=== PATIENT | female | born 1970 | race Two or more races ===

== ENCOUNTER 2018-01-28 21:50 | Emergency (ER) | payer OTHER ==
[~2018-01-28] VITALS: Ht 175.3 cm; Wt 93.4 kg
[2018-01-29 02:06] VITALS: BP 163/101
[2018-01-29] MEDS ORDERED: cefTRIAXone SOD 1,000 MG VL IM ONE (02:45)
== END 2018-01-29 03:05 | disposition home or self-care (01) ==
LOC: ER 21:50
DX: S91.104A Unspecified open wound of right lesser toe(s) without damage to nail, initial encounter (principal); Z88.2 Allergy status to sulfonamides; X58.XXXA Exposure to other specified factors, initial encounter; Y93.89 Activity, other specified; Y99.8 Other external cause status; Y92.89 Other specified places as the place of occurrence of the external cause
CPT/HCPCS: 73660; 82962; 96372; 99284; J0696

== ENCOUNTER 2018-06-29 11:55 | Inpatient (IN) | payer OTHER ==
[~2018-06-29] VITALS: Ht 175.3 cm; Wt 85.8 kg
[2018-06-29] MEDS ORDERED: CLINDAMYCIN 900MG IV 50 ML IV ONE (12:45)
[2018-06-29] MEDS ORDERED: KETOROLAC TROMETH 30 MG/ML 1ML VIAL IV ONE (12:45)
[2018-06-29] MEDS ORDERED: HYDROcodone-ACET 5/325MG TAB PO ONE (12:45)
[2018-06-29 13:06] LABS: Basophils # (auto) 0 uL; Basophils % (auto) 0.2 % (0.0-2.0); Eosinophils # (auto) 0 uL; Eosinophils % (auto) 0.2 % (0.0-7.0); Hematocrit 32.3 % (36.0-46.0); Lymphocytes # (auto) 0.7 uL; Lymphocytes % (auto) 4.5 % (10.0-50.0); Mean Corpuscular Hemoglobin 25.4 pg (28.0-32.0); Mean Corpuscular Hgb Conc. 30.8 g/dL (32.0-36.0); Mean Corpuscular Volume 82.5 fL (80.0-100.0); Monocytes # (auto) 0.8 uL; Monocytes % (auto) 5.3 % (0.0-12.0); Neutrophils # (auto) 13.3 uL; Neutrophils % (auto) 89.8 % (37.0-80.0); Platelet Count (auto) 411 10^3/uL (140-450); Red Blood Cells 3.92 10^6/uL (4.0-5.20); Red Cell Distribution Width 18.2 % (11.8-14.3); White Blood Cell 14.8 10^3/uL (4.4-10.8)
[2018-06-29 13:26] LABS: Albumin 3.3 g/dL (3.4-5.0); Calcium 8.9 mg/dL (8.5-10.1); Potassium 3.4 mmol/L (3.5-5.1)
[2018-06-29 13:29] LABS: BUN/Creatinine Ratio 14.8; Bilirubin, Total 0.6 mg/dL (0.2-1.0)
[2018-06-29] MEDS ORDERED: MORPHINE SULFATE 4 MG/ML SYR/VIAL IV PRN (15:30)
[2018-06-29] MEDS ORDERED: DEXTROSE (50%) 50ML SYRG IV PRN (15:30)
[2018-06-29] MEDS ORDERED: LORazepam 2MG/ML-1ML VIAL IV PRN (15:30)
[2018-06-29] MEDS ORDERED: SODIUM CHLORIDE 0.9% 1,000 ML IV ONE (15:30)
[2018-06-29] MEDS ORDERED: ONDANSETRON HCL 4 MG/2 ML VIAL IV PRN (15:30)
[2018-06-29] MEDS ORDERED: VANCOMYCIN PER PHARMACY 0 MG IV SCH (15:30)
[2018-06-29] MEDS: VANCOMYCIN 1GM/250ML 250 ML IV SCH (16:59)
[2018-06-29] MEDS: SOD CHL 0.9%/ KCL 20MEQ 1,000 ML IV SCH (17:52)
[2018-06-29] MEDS: ACCU-CHEK COMFORT CURVE STRIP VI SCH ×2 (18:41→23:59)
[2018-06-29] MEDS: PIPERACILLIN-TAZOB 3.375GM 100 ML IV SCH ×2 (18:41→23:58)
[2018-06-29] MEDS: InsuLIN REG 1unit/0.01ml Soln (100units/ml) SC SCH ×2 (18:41→23:59)
[2018-06-29 19:45] VITALS: BP 119/69
[2018-06-29 22:00] VITALS: BP_SYST 119; BP_SYST 158; BP_DIAS 69; BP_DIAS 89
[2018-06-30] MEDS: SOD CHL 0.9%/ KCL 20MEQ 1,000 ML IV SCH ×3 (00:50→21:27)
[2018-06-30] MEDS: VANCOMYCIN 1GM/250ML 250 ML IV SCH ×2 (04:58→17:00)
[2018-06-30 05:00] VITALS: BP 125/80
[2018-06-30] MEDS: PIPERACILLIN-TAZOB 3.375GM 100 ML IV SCH ×3 (06:07→18:00)
[2018-06-30] MEDS: ACCU-CHEK COMFORT CURVE STRIP VI SCH ×3 (06:08→18:00)
[2018-06-30] MEDS: InsuLIN REG 1unit/0.01ml Soln (100units/ml) SC SCH ×3 (06:08→18:00)
[2018-06-30 06:31] LABS: Basophils # (auto) 0 uL; Basophils % (auto) 0.4 % (0.0-2.0); Eosinophils # (auto) 0.2 uL; Eosinophils % (auto) 1.7 % (0.0-7.0); Hemoglobin 8.3 g/dL (12.2-16.2); Lymphocytes # (auto) 1.1 uL; Monocytes # (auto) 0.7 uL
[2018-06-30 06:34] LABS: Hematocrit 26.4 % (36.0-46.0); Lymphocytes % (auto) 12.3 % (10.0-50.0); Mean Corpuscular Hemoglobin 25.7 pg (28.0-32.0); Mean Corpuscular Hgb Conc. 31.5 g/dL (32.0-36.0); Mean Corpuscular Volume 81.8 fL (80.0-100.0); Monocytes % (auto) 7.4 % (0.0-12.0); Neutrophils # (auto) 7.2 uL; Neutrophils % (auto) 78.2 % (37.0-80.0); Platelet Count (auto) 323 10^3/uL (140-450); Red Blood Cells 3.23 10^6/uL (4.0-5.20); White Blood Cell 9.3 10^3/uL (4.4-10.8)
[2018-06-30 06:45] LABS: INR 0.9 (0.9-1.15); Partial Thromboplastin Time 32.2 sec (23.78-33.04); Prothrombin Time 9.7 sec (9.27-12.13)
[2018-06-30 07:00] LABS: Potassium 4.1 mmol/L (3.5-5.1)
[2018-06-30 07:02] LABS: Albumin 2.5 g/dL (3.4-5.0); BUN/Creatinine Ratio 15.8; Calcium 8.3 mg/dL (8.5-10.1)
[2018-06-30 07:04] LABS: Total Protein 7.2 g/dL (6.4-8.2)
[2018-06-30 08:01] LABS: Bilirubin, Total 0.4 mg/dL (0.2-1.0)
[2018-06-30 08:10] VITALS: BP 146/83
[2018-06-30] MEDS ORDERED: METF-370 PO (09:14)
[2018-06-30] MEDS ORDERED: CANA300T OR (09:17)
[2018-06-30] MEDS ORDERED: ROSU40TA PO (09:20)
[2018-06-30] MEDS ORDERED: LISI-275 PO (09:20)
[2018-06-30] MEDS ORDERED: ALOG1TAB2 PO (09:20)
[2018-06-30 11:50] VITALS: BP 150/86
[2018-06-30 16:19] VITALS: BP 122/78
[2018-06-30 22:00] VITALS: BP 120/74
[2018-07-01] MEDS: PIPERACILLIN-TAZOB 3.375GM 100 ML IV SCH ×4 (00:13→22:00)
[2018-07-01] MEDS: ACCU-CHEK COMFORT CURVE STRIP VI SCH ×5 (00:14→22:45)
[2018-07-01] MEDS: InsuLIN REG 1unit/0.01ml Soln (100units/ml) SC SCH ×5 (00:14→22:45)
[2018-07-01 04:56] VITALS: BP 116/75
[2018-07-01 04:58] LABS: Eosinophils # (auto) 0.2 uL; Eosinophils % (auto) 1.7 % (0.0-7.0); Hemoglobin 10.6 g/dL (12.2-16.2); Lymphocytes # (auto) 2.1 uL; Lymphocytes % (auto) 16.9 % (10.0-50.0); Monocytes # (auto) 0.7 uL; Neutrophils # (auto) 9.2 uL
[2018-07-01 04:59] LABS: Basophils # (auto) 0 uL; Basophils % (auto) 0.2 % (0.0-2.0); Hematocrit 34.1 % (36.0-46.0); Mean Corpuscular Hemoglobin 25.7 pg (28.0-32.0); Mean Corpuscular Hgb Conc. 31.2 g/dL (32.0-36.0); Mean Corpuscular Volume 82.4 fL (80.0-100.0); Neutrophils % (auto) 75.2 % (37.0-80.0); Platelet Count (auto) 486 10^3/uL (140-450); Red Blood Cells 4.14 10^6/uL (4.0-5.20); White Blood Cell 12.3 10^3/uL (4.4-10.8)
[2018-07-01 05:17] LABS: BUN/Creatinine Ratio 9.7; Calcium 9.6 mg/dL (8.5-10.1); Potassium 3.9 mmol/L (3.5-5.1)
[2018-07-01] MEDS: VANCOMYCIN 1GM/250ML 250 ML IV SCH ×2 (05:32→17:00)
[2018-07-01] MEDS: SOD CHL 0.9%/ KCL 20MEQ 1,000 ML IV SCH ×2 (07:30→17:30)
[2018-07-01 09:00] VITALS: BP 110/74
[2018-07-01 10:20] LABS: Urine Bacteria NONE SEEN /hpf (None Seen); Urine Blood 1+ /uL (Negative); Urine Specific Gravity 1.026 (1.001-1.035); Urine WBC <1 /hpf (0 - 5)
[2018-07-01 13:00] VITALS: BP 114/72
[2018-07-01] MEDS ORDERED: LIDOCAINE 1% (LOCAL ANESTH.) PF 5ml SDV ID ONE (16:00)
[2018-07-01 17:21] VITALS: BP 116/77
[2018-07-01 22:00] VITALS: BP 128/84
[2018-07-01] MEDS: SODIUM CHLOR 0.9% PF (SALINE LOCK) 10ML VIAL/SYR IV SCH (22:00)
[2018-07-02] VITALS (7 sets, daily range): BP systolic 97–130; BP diastolic 64–90
[2018-07-02] MEDS: SOD CHL 0.9%/ KCL 20MEQ 1,000 ML IV SCH ×2 (03:30→14:04)
[2018-07-02] MEDS: VANCOMYCIN 1GM/250ML 250 ML IV SCH ×2 (05:07→17:40)
[2018-07-02] MEDS: InsuLIN REG 1unit/0.01ml Soln (100units/ml) SC SCH ×3 (05:07→18:47)
[2018-07-02] MEDS: ACCU-CHEK COMFORT CURVE STRIP VI SCH ×3 (05:08→17:40)
[2018-07-02 06:12] LABS: Basophils # (auto) 0 uL; Eosinophils # (auto) 0.2 uL; Hemoglobin 9.9 g/dL (12.2-16.2)
[2018-07-02 06:14] LABS: Basophils % (auto) 0.6 % (0.0-2.0); Eosinophils % (auto) 2.5 % (0.0-7.0); Hematocrit 31.3 % (36.0-46.0); Lymphocytes # (auto) 1.3 uL; Lymphocytes % (auto) 17.5 % (10.0-50.0); Mean Corpuscular Hemoglobin 25.9 pg (28.0-32.0); Mean Corpuscular Hgb Conc. 31.5 g/dL (32.0-36.0); Mean Corpuscular Volume 80.7 fL (80.0-100.0); Monocytes # (auto) 0.5 uL; Monocytes % (auto) 6.6 % (0.0-12.0); Neutrophils # (auto) 5.5 uL; Neutrophils % (auto) 72.8 % (37.0-80.0); Platelet Count (auto) 427 10^3/uL (140-450); Red Blood Cells 3.88 10^6/uL (4.0-5.20); Red Cell Distribution Width 18.2 % (11.8-14.3); White Blood Cell 7.5 10^3/uL (4.4-10.8)
[2018-07-02] MEDS: PIPERACILLIN-TAZOB 3.375GM 100 ML IV SCH ×3 (06:20→23:00)
[2018-07-02] MEDS: SODIUM CHLOR 0.9% PF (SALINE LOCK) 10ML VIAL/SYR IV SCH ×2 (06:21→23:57)
[2018-07-02 06:37] LABS: Potassium 3.4 mmol/L (3.5-5.1)
[2018-07-02 06:45] LABS: Albumin 2.8 g/dL (3.4-5.0); BUN/Creatinine Ratio 12.1; Calcium 8.8 mg/dL (8.5-10.1)
[2018-07-02 06:48] LABS: Bilirubin, Total 0.7 mg/dL (0.2-1.0); Total Protein 8.4 g/dL (6.4-8.2)
[2018-07-02] MEDS ORDERED: BUPIVACAINE 0.75% INJ 10ML MPV SDV IJ ONE (06:59)
[2018-07-02] MEDS ORDERED: ceFAZolin 1GM VL ONE (06:59)
[2018-07-02] MEDS ORDERED: fentaNYL CITRATE 100 MCG/2 ML VL ONE (07:28)
[2018-07-02] MEDS ORDERED: MIDAZOLAM HCL 1MG/1ML-2 ML VIAL ONE (07:28)
[2018-07-02] MEDS ORDERED: PROPOFOL 10 MG/ML 20 ML IV ONE (07:29)
[2018-07-02] MEDS ORDERED: ONDANSETRON HCL 4 MG/2 ML VIAL IV ONE (08:15)
[2018-07-02] MEDS ORDERED: hydrALAZINE HCL 20 MG/ML VL IV PRN (08:15)
[2018-07-02] MEDS ORDERED: HYDROmorphone HCL 2 MG/ML VL IV PRN (08:15)
[2018-07-02] MEDS ORDERED: LABETALOL HCL 5 MG/ML 4ML SYRINGE IV PRN (08:15)
[2018-07-02] MEDS ORDERED: ePHEDrine SULFATE 50 MG/ML AMP IV PRN (08:15)
[2018-07-02] MEDS: HYDROcodone-ACET 5/325MG TAB PO PRN ×2 (14:08→21:03)
[2018-07-03] MEDS: ACCU-CHEK COMFORT CURVE STRIP VI SCH ×4 (00:09→17:36)
[2018-07-03] MEDS: InsuLIN REG 1unit/0.01ml Soln (100units/ml) SC SCH ×4 (00:10→17:36)
[2018-07-03] MEDS: SOD CHL 0.9%/ KCL 20MEQ 1,000 ML IV SCH (03:55)
[2018-07-03 04:56] VITALS: BP 123/80
[2018-07-03] MEDS: VANCOMYCIN 1GM/250ML 250 ML IV SCH ×2 (05:24→17:37)
[2018-07-03 06:36] LABS: Basophils # (auto) 0 uL; Basophils % (auto) 0.4 % (0.0-2.0); Hemoglobin 8.9 g/dL (12.2-16.2); Lymphocytes % (auto) 14.3 % (10.0-50.0); Mean Corpuscular Volume 81.1 fL (80.0-100.0); Monocytes # (auto) 0.6 uL; Neutrophils # (auto) 5.3 uL; Neutrophils % (auto) 74.2 % (37.0-80.0); White Blood Cell 7.1 10^3/uL (4.4-10.8)
[2018-07-03 06:39] LABS: Eosinophils # (auto) 0.2 uL; Eosinophils % (auto) 2.3 % (0.0-7.0); Mean Corpuscular Hemoglobin 25.7 pg (28.0-32.0); Mean Corpuscular Hgb Conc. 31.7 g/dL (32.0-36.0); Monocytes % (auto) 8.8 % (0.0-12.0); Platelet Count (auto) 365 10^3/uL (140-450); Red Blood Cells 3.45 10^6/uL (4.0-5.20); Red Cell Distribution Width 17.7 % (11.8-14.3)
[2018-07-03] MEDS: PIPERACILLIN-TAZOB 3.375GM 100 ML IV SCH (06:43)
[2018-07-03 06:47] LABS: BUN/Creatinine Ratio 14.3; Calcium 8.3 mg/dL (8.5-10.1); Potassium 3.8 mmol/L (3.5-5.1)
[2018-07-03 08:28] VITALS: BP 100/65
[2018-07-03] MEDS: HYDROcodone-ACET 5/325MG TAB PO PRN (09:34)
[2018-07-03] MEDS: SODIUM CHLOR 0.9% PF (SALINE LOCK) 10ML VIAL/SYR IV SCH ×2 (10:00→22:00)
[2018-07-03 13:00] VITALS: BP 118/79
[2018-07-03] MEDS: cefTRIAXone 1GM/50ML D5W 50 ML IV SCH (14:23)
[2018-07-03] MEDS: metroNIDAZOLE 500 MG TAB PO SCH ×2 (14:23→22:00)
[2018-07-03 17:09] VITALS: BP 138/89
[2018-07-03 20:00] VITALS: BP 111/74
[2018-07-03 22:00] VITALS: BP 111/74
[2018-07-04 05:00] VITALS: BP 111/74
[2018-07-04] MEDS: VANCOMYCIN 1GM/250ML 250 ML IV SCH ×2 (05:00→16:40)
[2018-07-04] MEDS: InsuLIN REG 1unit/0.01ml Soln (100units/ml) SC SCH ×4 (06:00→17:58)
[2018-07-04] MEDS: ACCU-CHEK COMFORT CURVE STRIP VI SCH ×4 (06:00→17:59)
[2018-07-04] MEDS: metroNIDAZOLE 500 MG TAB PO SCH ×3 (06:00→21:59)
[2018-07-04] MEDS: cefTRIAXone 1GM/50ML D5W 50 ML IV SCH (08:38)
[2018-07-04 08:53] VITALS: BP 114/74
[2018-07-04] MEDS: SODIUM CHLOR 0.9% PF (SALINE LOCK) 10ML VIAL/SYR IV SCH ×2 (10:06→21:59)
[2018-07-04 13:17] VITALS: BP 122/77
[2018-07-04 17:16] VITALS: BP 121/82
[2018-07-04 22:00] VITALS: BP_SYST 103; BP_SYST 117; BP_DIAS 55; BP_DIAS 78
[2018-07-05] MEDS: ACCU-CHEK COMFORT CURVE STRIP VI SCH ×4 (00:25→17:50)
[2018-07-05] MEDS: InsuLIN REG 1unit/0.01ml Soln (100units/ml) SC SCH ×4 (00:26→17:50)
[2018-07-05 05:18] VITALS: BP 114/69
[2018-07-05] MEDS: VANCOMYCIN 1GM/250ML 250 ML IV SCH ×2 (05:21→16:54)
[2018-07-05] MEDS: metroNIDAZOLE 500 MG TAB PO SCH ×3 (05:50→21:29)
[2018-07-05] MEDS: cefTRIAXone 1GM/50ML D5W 50 ML IV SCH (08:55)
[2018-07-05 09:13] VITALS: BP 114/73
[2018-07-05] MEDS: NEOMYCIN-BACITRACIN-POLYM UNITDOSE PKG TOP OINT TOP SCH (10:34)
[2018-07-05] MEDS: SODIUM CHLOR 0.9% PF (SALINE LOCK) 10ML VIAL/SYR IV SCH ×2 (10:34→21:30)
[2018-07-05] MEDS ORDERED: ACETAMINOPHEN 500 MG TAB PO PRN (12:45)
[2018-07-05 14:18] VITALS: BP 108/69
[2018-07-05 16:58] VITALS: BP 128/85
[2018-07-05 21:54] VITALS: BP 130/81
[2018-07-06] MEDS: ACCU-CHEK COMFORT CURVE STRIP VI SCH ×3 (00:19→12:01)
[2018-07-06] MEDS: InsuLIN REG 1unit/0.01ml Soln (100units/ml) SC SCH ×3 (00:19→12:02)
[2018-07-06 04:56] VITALS: BP 134/83
[2018-07-06] MEDS: VANCOMYCIN 1GM/250ML 250 ML IV SCH (05:19)
[2018-07-06] MEDS: metroNIDAZOLE 500 MG TAB PO SCH ×2 (05:30→14:00)
[2018-07-06 08:29] VITALS: BP 124/77
[2018-07-06] MEDS: cefTRIAXone 1GM/50ML D5W 50 ML IV SCH (09:09)
[2018-07-06] MEDS: NEOMYCIN-BACITRACIN-POLYM UNITDOSE PKG TOP OINT TOP SCH (11:45)
[2018-07-06] MEDS: SODIUM CHLOR 0.9% PF (SALINE LOCK) 10ML VIAL/SYR IV SCH (11:46)
[2018-07-06 12:30] VITALS: BP 132/87
== END 2018-07-06 15:40 | disposition home health service (06) | DRG 854 ==
LOC: ER 11:55 → OVERFLOW 15:13 → WEST WING 19:45
PROVIDERS: ADMIT Internal Medicine; ATTEND Internal Medicine
PROC: 0Y6Y0Z0 Detachment at Left 5th Toe, Complete, Open Approach (ICD-10-PCS; principal; 2018-06-29)
PROC: 0QTP0ZZ Resection of Left Metatarsal, Open Approach (ICD-10-PCS; 2018-06-29)
PROC: 05HY33Z Insertion of Infusion Device into Upper Vein, Percutaneous Approach (ICD-10-PCS; 2018-07-01)
DX: A41.9 Sepsis, unspecified organism (principal); E87.1 Hypo-osmolality and hyponatremia; L03.116 Cellulitis of left lower limb; M86.679 Other chronic osteomyelitis, unspecified ankle and foot; L02.612 Cutaneous abscess of left foot; D64.9 Anemia, unspecified; E11.621 Type 2 diabetes mellitus with foot ulcer; E11.69 Type 2 diabetes mellitus with other specified complication; Z79.4 Long term (current) use of insulin; Z89.429 Acquired absence of other toe(s), unspecified side; Z88.2 Allergy status to sulfonamides
CPT/HCPCS: 36415; 36569; 71045; 73630; 73718; 80048; 80053; 80202; 81001; 81025; 82565; 82962; 83036; 83605; 84702; 85025; 85610; 85730; 86141; 86850; 86900; 86901; 87040; 87070; 87075; 93005; 93926; 94761; 96361; 96365; 96367; G0378; J0690; J0696; J1815; J1885; J2250; J2543; J2704; J3490

== ENCOUNTER 2018-08-25 07:42 | Inpatient (IN) | payer OTHER ==
[~2018-08-25] VITALS: Ht 175.3 cm; Wt 88.1 kg
[~2018-08-25 07:42] MED LIST: ALOG1TAB2 PO; CANA300T OR; LISI-275 PO; METF-370 PO; ROSU40TA PO
[2018-08-25] MEDS ORDERED: SODIUM CHLORIDE 0.9% 1,000 ML IV ONE (10:19)
[2018-08-25 11:25] LABS: Eosinophils # (auto) 0.1 uL; Mean Corpuscular Volume 78.1 fL (80.0-100.0); Monocytes # (auto) 0.5 uL; Neutrophils # (auto) 4.8 uL; White Blood Cell 6.5 10^3/uL (4.4-10.8)
[2018-08-25 11:30] LABS: Basophils # (auto) 0.1 uL; Basophils % (auto) 1.6 % (0.0-2.0); Eosinophils % (auto) 1.4 % (0.0-7.0); Hematocrit 30.3 % (36.0-46.0); Hemoglobin 9.1 g/dL (12.2-16.2); Lymphocytes % (auto) 15.3 % (10.0-50.0); Mean Corpuscular Hemoglobin 23.5 pg (28.0-32.0); Mean Corpuscular Hgb Conc. 30.1 g/dL (32.0-36.0); Monocytes % (auto) 7.2 % (0.0-12.0); Neutrophils % (auto) 74.5 % (37.0-80.0); Platelet Count (auto) 326 10^3/uL (140-450); Red Blood Cells 3.89 10^6/uL (4.0-5.20); Red Cell Distribution Width 19.5 % (11.8-14.3)
[2018-08-25 11:42] LABS: Albumin 3.4 g/dL (3.4-5.0); Magnesium 2.1 mg/dL (1.6-2.6)
[2018-08-25 11:43] LABS: Urine WBC None Seen /hpf (0 - 5)
[2018-08-25 11:47] LABS: Bilirubin, Total 0.4 mg/dL (0.2-1.0); Total Protein 7.6 g/dL (6.4-8.2)
[2018-08-25 11:55] LABS: Beta HCG, Quantitative < 1 mlU/mL (1-3); Thyroid Stimulating Hormone 1.29 uIU/mL (0.358-3.74)
[2018-08-25 12:29] LABS: Urine Bacteria NONE SEEN /hpf (None Seen); Urine Blood TRACE /uL (Negative); Urine Mucus FEW (None Seen)
[2018-08-25] MEDS ORDERED: cefTRIAXone 1GM/50ML D5W 50 ML IV ONE (13:15)
[2018-08-25] MEDS ORDERED: LACTULOSE 20Gm/30ML SOLN PO PRN (13:30)
[2018-08-25] MEDS ORDERED: TEMAZEPAM 15 MG CAP PO PRN (13:30)
[2018-08-25] MEDS ORDERED: HYDROcodone-ACET 5/325MG TAB PO PRN (13:30)
[2018-08-25] MEDS ORDERED: LORazepam 0.5 MG TAB PO PRN (13:30)
[2018-08-25] MEDS ORDERED: ACETAMINOPHEN 500 MG TAB PO PRN (13:30)
[2018-08-25] MEDS ORDERED: PROMETHAZINE HCL 25 MG/ML 1ML IV PRN (13:30)
[2018-08-25] MEDS ORDERED: ALBUTEROL SULF 2.5 MG/0.5ML(0.5%) NEB SOLN NEB PRN (13:30)
[2018-08-25] MEDS ORDERED: NITROGLYCERIN 0.4 MG SL TAB SL PRN (13:30)
[2018-08-25] MEDS ORDERED: MORPHINE SULFATE 10 MG/ML INJ 1ML SDV IV PRN ×2 (13:30)
[2018-08-25] MEDS ORDERED: DEXTROSE (50%) 50ML SYRG IV PRN (13:30)
[2018-08-25 13:40] VITALS: BP 156/85
[2018-08-25] MEDS: SODIUM CHLORIDE 0.9% 1,000 ML IV SCH ×2 (14:26→23:58)
[2018-08-25] MEDS ORDERED: AZITHROMYCIN 500MG/ 250ML 250 ML IV ONE ×2 (14:30→17:00)
[2018-08-25] MEDS: CLINDAMYCIN 600MG IV 50 ML IV SCH ×2 (14:30→22:59)
[2018-08-25] MEDS: ACCU-CHEK COMFORT CURVE STRIP VI SCH ×2 (17:27→22:59)
[2018-08-25] MEDS: InsuLIN REG 1unit/0.01ml Soln (100units/ml) SC SCH ×2 (17:31→22:59)
[2018-08-25] MEDS: ALBUTEROL SULF 2.5 MG/0.5ML(0.5%) NEB SOLN NEB SCH (18:22)
--- NOTE | 2018-08-25 20:20 | NUR ---
Telemetry admit from ER FERNANDA DE JESUS admitted to Telemetry . Patient oriented to MELI MOJICA RN primary RN, unit, room, bed, and unit policies regarding patient care and visiting hours. Patient now on continuous telemetry monitoring, tele box # [id number] and telemetry reading on arrival to unit is NSR. Patient weighed by bedscale and encouraged to call if they need something. All questions and concerns addressed, patient verbalized understanding. Note:
[2018-08-25 21:30] VITALS: BP 140/90
[2018-08-26] VITALS (7 sets, daily range): BP systolic 132–141; BP diastolic 75–90
[2018-08-26] MEDS: ALBUTEROL SULF 2.5 MG/0.5ML(0.5%) NEB SOLN NEB SCH ×4 (00:45→19:29)
[2018-08-26] MEDS ORDERED: LEVEMIR SC (04:48)
[2018-08-26] MEDS ORDERED: INSREG3 SUBCUT (04:48)
[2018-08-26] MEDS ORDERED: SODIUM CHLORIDE 0.9 % NEB SOLN 3ML NEB ONE ×3 (05:23→10:58)
[2018-08-26] MEDS: CLINDAMYCIN 600MG IV 50 ML IV SCH ×3 (05:54→22:16)
[2018-08-26 07:02] LABS: Basophils # (auto) 0 uL; Eosinophils # (auto) 0.1 uL; Hemoglobin 7.9 g/dL (12.2-16.2); Lymphocytes # (auto) 1.2 uL; Mean Corpuscular Volume 75.9 fL (80.0-100.0)
[2018-08-26 07:04] LABS: Basophils % (auto) 0.5 % (0.0-2.0); Eosinophils % (auto) 1.6 % (0.0-7.0); Hematocrit 25.9 % (36.0-46.0); Lymphocytes % (auto) 23.4 % (10.0-50.0); Mean Corpuscular Hgb Conc. 30.4 g/dL (32.0-36.0); Monocytes # (auto) 0.5 uL; Monocytes % (auto) 10.1 % (0.0-12.0); Neutrophils # (auto) 3.4 uL; Neutrophils % (auto) 64.4 % (37.0-80.0); Platelet Count (auto) 294 10^3/uL (140-450); Red Blood Cells 3.41 10^6/uL (4.0-5.20); Red Cell Distribution Width 19.2 % (11.8-14.3); White Blood Cell 5.3 10^3/uL (4.4-10.8)
[2018-08-26 07:06] LABS: Potassium 3.6 mmol/L (3.5-5.1)
[2018-08-26 07:13] LABS: BUN/Creatinine Ratio 18.2; Bilirubin, Total 0.3 mg/dL (0.2-1.0); Calcium 7.8 mg/dL (8.5-10.1); Total Protein 6.8 g/dL (6.4-8.2)
--- NOTE | 2018-08-26 07:20 | NUR ---
Closing Note PATIENT IS RESTING IN BED WITH EYES CLOSED. RESPIRATIONS ARE EVEN AND UNLABORED. NO S/S OF DISTRESS OR PAIN. BED IS LOW AND LOCKED. CARE ENDORSED TO DAY SHIFT RN.
[2018-08-26] MEDS: ACCU-CHEK COMFORT CURVE STRIP VI SCH ×4 (07:33→22:23)
[2018-08-26] MEDS: InsuLIN REG 1unit/0.01ml Soln (100units/ml) SC SCH ×4 (07:36→22:16)
--- NOTE | 2018-08-26 08:51 | NUR ---
OPENING NOTE ASSUMED CARE OF PT. PT IS SITTING ON BED. A&O X4. PT ON ROOM AIR. NO SIGNS OF SOB/DISTRESS NOTED. PT ON TELE #23. SAFETY PRECAUTIONS IN PLACE INCLUDING BED SET TO LOWEST POSITION/LOCKED. BEDSIDE RAILS UP X2. CALL LIGHT WITHIN REACH. INSTRUCTED PT TO CALL FOR ASSISTANCE. DISCUSSED POC WITH PT. PT VERBALIZED UNDERSTANDING. WILL CONTINUE TO MONITOR Q 1HR AND PRN.
[2018-08-26] MEDS: cefTRIAXone 1GM/50ML D5W 50 ML IV SCH (09:46)
[2018-08-26] MEDS: SODIUM CHLORIDE 0.9% 1,000 ML IV SCH ×2 (09:47→12:28)
[2018-08-26] MEDS ORDERED: AZITHROMYCIN 500MG/ 250ML 250 ML IV SCH (10:00)
[2018-08-26] MEDS ORDERED: ENOXAPARIN SOD 40 MG/0.4 ML SYRINGE SC SCH (10:00)
--- NOTE | 2018-08-26 19:16 | NUR ---
CLOSING NOTE ENDORSED CARE TO VIDHYA CALIX.
--- NOTE | 2018-08-26 19:25 | NUR ---
OPENING NOTE ASSUMED CARE OF PATIENT FROM ALICIA CALIX. PATIENT IS SITTING IN BED, A&O X4 ON ROOM AIR, DENIES PAIN OR ANY DISCOMFORT AT THIS TIME. PATIENT ON TELE 41 RUNNING SINUS TACH. NS 75 ML/HR RUNNING. SAFETY PRECAUTIONS IN PLACE INCLUDING BED SET TO LOWEST POSITION/LOCKED. BEDSIDE RAILS UP X2. CALL LIGHT WITHIN REACH. INSTRUCTED TO CALL FOR ASSISTANCE. DISCUSSED POC WITH PATIENT. PATENT STATED THAT SHE SEEN DR METCALF TODAY, BUT NOT ANTHONY. UNSURE ON SURGERY SCHEDULE FOR TOMORROW BUT WILL REMAIN NPO AFTER MIDNIGHT FOR A POSSIBLE SKIN GRAFT TO LEFT FOOT BY DR. CRUZ. WILL CONTINUE TO MONITOR Q 1HR AND PRN.
[2018-08-26] MEDS: ATORVASTATIN 20 MG TAB PO SCH (22:14)
[2018-08-27] MEDS: SODIUM CHLORIDE 0.9% 1,000 ML IV SCH ×2 (00:50→14:10)
[2018-08-27 05:17] VITALS: BP 145/84
[2018-08-27] MEDS: CLINDAMYCIN 600MG IV 50 ML IV SCH ×3 (06:10→21:41)
[2018-08-27] MEDS: ALBUTEROL SULF 2.5 MG/0.5ML(0.5%) NEB SOLN NEB SCH ×4 (06:16→19:07)
[2018-08-27 06:48] LABS: Basophils # (auto) 0 uL; Eosinophils # (auto) 0.1 uL; Monocytes # (auto) 0.6 uL; Neutrophils # (auto) 3.7 uL; Nucleated Red Blood Cells % 0.1 %; Red Blood Cells 3.37 10^6/uL (4.0-5.20)
[2018-08-27 06:50] LABS: Basophils % (auto) 0.5 % (0.0-2.0); Eosinophils % (auto) 1.6 % (0.0-7.0); Hematocrit 25.4 % (36.0-46.0); Hemoglobin 7.9 g/dL (12.2-16.2); Lymphocytes # (auto) 1.1 uL; Lymphocytes % (auto) 19.7 % (10.0-50.0); Mean Corpuscular Hemoglobin 23.3 pg (28.0-32.0); Mean Corpuscular Volume 75.2 fL (80.0-100.0); Monocytes % (auto) 11.1 % (0.0-12.0); Neutrophils % (auto) 67.1 % (37.0-80.0); Platelet Count (auto) 298 10^3/uL (140-450); Red Cell Distribution Width 18.9 % (11.8-14.3); White Blood Cell 5.4 10^3/uL (4.4-10.8)
[2018-08-27 06:59] LABS: BUN/Creatinine Ratio 19.6; Calcium 8.1 mg/dL (8.5-10.1); Potassium 3.8 mmol/L (3.5-5.1)
[2018-08-27] MEDS: InsuLIN REG 1unit/0.01ml Soln (100units/ml) SC SCH ×4 (06:59→21:41)
[2018-08-27 07:01] LABS: INR 0.98 (0.9-1.15); Partial Thromboplastin Time 27.1 sec (23.78-33.04); Prothrombin Time 10.5 sec (9.27-12.13)
[2018-08-27] MEDS: ACCU-CHEK COMFORT CURVE STRIP VI SCH ×4 (07:10→21:42)
--- NOTE | 2018-08-27 07:15 | NUR ---
OPENING NOTE ASSUMED CARE OF PT. PT IS SITTING ON BED. A&O X4. PT ON ROOM AIR, O2 SATURATIONS 91%. NO SIGNS OF SOB/DISTRESS NOTED. PT ON TELE #23, HR 102. SAFETY PRECAUTIONS IN PLACE INCLUDING BED SET TO LOWEST POSITION/LOCKED. BEDSIDE RAILS UP X2. CALL LIGHT WITHIN REACH. INSTRUCTED PT TO CALL FOR ASSISTANCE. DISCUSSED POC WITH PT. PT VERBALIZED UNDERSTANDING. WILL CONTINUE TO MONITOR Q 1HR AND PRN.
[2018-08-27 07:55] VITALS: BP 132/72
[2018-08-27] MEDS: AZITHROMYCIN 250 MG TAB PO SCH (09:58)
[2018-08-27] MEDS: cefTRIAXone 1GM/50ML D5W 50 ML IV SCH (09:58)
[2018-08-27 13:00] VITALS: BP 121/64
--- NOTE | 2018-08-27 13:47 | NUR ---
PATIENT OFF UNIT VIA BED TO OR.
[2018-08-27] MEDS ORDERED: ceFAZolin 1GM/50ML 50 ML IV ONE (14:07)
[2018-08-27] MEDS ORDERED: ceFAZolin 1GM VL ONE (14:16)
[2018-08-27] MEDS ORDERED: ONDANSETRON HCL 4 MG/2 ML VIAL IV ONE (15:00)
[2018-08-27] MEDS ORDERED: ePHEDrine SULFATE 50 MG/ML AMP IV PRN (15:00)
[2018-08-27] MEDS ORDERED: hydrALAZINE HCL 20 MG/ML VL IV PRN (15:00)
[2018-08-27] MEDS ORDERED: fentaNYL CITRATE 100 MCG/2 ML VL IV ONE (15:00)
--- NOTE | 2018-08-27 15:30 | NUR ---
PATIENT BACK ON UNIT VIA BED. NO SIGNS OF SOB/DISTRESS NOTED. DRESSING CLEAN, DRY AND INTACT. PATIENT DENIES ANY PAIN. WILL CONTINUE TO MONITOR.
[2018-08-27 17:32] VITALS: BP 147/86
--- NOTE | 2018-08-27 19:15 | NUR ---
CLOSING NOTE ENDORSED CARE TO KAIT Eller RN.
[2018-08-27] MEDS: ATORVASTATIN 20 MG TAB PO SCH (21:41)
[2018-08-27 22:00] VITALS: BP 138/81
--- NOTE | 2018-08-28 00:41 | NUR ---
Right hand IV leaking and swollen. IV dc'd with cath tip intact. New IV started at this time. Left hand 22g on first attempt and pt liliya well.
[2018-08-28] MEDS: ALBUTEROL SULF 2.5 MG/0.5ML(0.5%) NEB SOLN NEB SCH ×3 (00:49→11:26)
[2018-08-28 05:48] VITALS: BP 138/80
[2018-08-28] MEDS: SODIUM CHLORIDE 0.9% 1,000 ML IV SCH (06:09)
[2018-08-28] MEDS: CLINDAMYCIN 600MG IV 50 ML IV SCH (06:10)
[2018-08-28] MEDS: InsuLIN REG 1unit/0.01ml Soln (100units/ml) SC SCH (06:36)
[2018-08-28] MEDS: ACCU-CHEK COMFORT CURVE STRIP VI SCH (06:36)
[2018-08-28 09:00] VITALS: BP 135/84
[2018-08-28] MEDS: cefTRIAXone 1GM/50ML D5W 50 ML IV SCH (10:24)
[2018-08-28] MEDS: AZITHROMYCIN 250 MG TAB PO SCH (10:24)
== END 2018-08-28 12:30 | disposition home or self-care (01) | DRG 463 ==
LOC: ER 07:44 → OVERFLOW 13:26 → TELE-CENTR 20:20
PROVIDERS: ADMIT Internal Medicine; ATTEND Family Medicine
PROC: 0JBR0ZZ Excision of Left Foot Subcutaneous Tissue and Fascia, Open Approach (ICD-10-PCS; 2018-08-27)
PROC: 0HRNXK3 Replacement of Left Foot Skin with Nonautologous Tissue Substitute, Full Thickness, External Approach (ICD-10-PCS; principal; 2018-08-27 14:30)
DX: T87.54 Necrosis of amputation stump, left lower extremity (principal); J18.1 Lobar pneumonia, unspecified organism; E11.621 Type 2 diabetes mellitus with foot ulcer; E11.65 Type 2 diabetes mellitus with hyperglycemia; D63.8 Anemia in other chronic diseases classified elsewhere; E78.00 Pure hypercholesterolemia, unspecified; E78.5 Hyperlipidemia, unspecified; I10 Essential (primary) hypertension; Y83.5 Amputation of limb(s) as the cause of abnormal reaction of the patient, or of later complication, without mention of misadventure at the time of the procedure; L97.529 Non-pressure chronic ulcer of other part of left foot with unspecified severity; Z82.49 Family history of ischemic heart disease and other diseases of the circulatory system; Z83.3 Family history of diabetes mellitus; Z89.422 Acquired absence of other left toe(s); Z88.2 Allergy status to sulfonamides; Z79.84 Long term (current) use of oral hypoglycemic drugs; Z79.899 Other long term (current) drug therapy; Y92.89 Other specified places as the place of occurrence of the external cause
CPT/HCPCS: 36415; 71046; 80048; 80053; 80061; 81001; 82962; 83036; 83735; 84443; 84702; 85025; 85610; 85652; 85730; 86850; 86900; 86901; 87040; 87070; 87205; 87804; 94640; 94761; 96361; 96365; 96367; 96376; A6257; G0378; J0690; J0696; J1815; J3490

== ENCOUNTER → 2018-11-18 | Outpatient (CLI) | payer OTHER ==
[~2018-11-18] MED LIST changes: -ALOG1TAB2 PO; -CANA300T OR; +INSREG3 SUBCUT; +LEVEMIR SC; -METF-370 PO
== END | disposition home or self-care (01) ==
LOC: LAB 15:00
PROVIDERS: ATTEND Podiatrist Foot & Ankle Surgery
DX: R23.8 Other skin changes (principal)

== ENCOUNTER → 2018-12-09 | Outpatient (CLI) | payer OTHER ==
[2018-12-09 09:03] LABS: Basophils # (auto) 0 uL; Eosinophils # (auto) 0.1 uL; Eosinophils % (auto) 2.5 % (0.0-7.0); Lymphocytes # (auto) 1.4 uL; Mean Corpuscular Volume 81.2 fL (80.0-100.0); Monocytes # (auto) 0.4 uL; Neutrophils # (auto) 2.8 uL; Urine Bacteria FEW /hpf (None Seen); Urine Blood 1+ /uL (Negative); Urine Specific Gravity 1.014 (1.001-1.035); Urine WBC 1 /hpf (0 - 5)
[2018-12-09 09:04] LABS: Basophils % (auto) 0.6 % (0.0-2.0); Lymphocytes % (auto) 29.9 % (10.0-50.0); Mean Corpuscular Hemoglobin 25.7 pg (28.0-32.0); Mean Corpuscular Hgb Conc. 31.7 g/dL (32.0-36.0); Monocytes % (auto) 9.1 % (0.0-12.0); Neutrophils % (auto) 57.9 % (37.0-80.0); Platelet Count (auto) 254 10^3/uL (140-450); Red Blood Cells 4.68 10^6/uL (4.0-5.20); White Blood Cell 4.8 10^3/uL (4.4-10.8)
[2018-12-09 09:10] LABS: Red Cell Distribution Width 23.1 % (11.8-14.3)
[2018-12-09 09:18] LABS: Albumin 3.5 g/dL (3.4-5.0); Calcium 8.3 mg/dL (8.5-10.1); Potassium 4.3 mmol/L (3.5-5.1)
[2018-12-09 09:24] LABS: BUN/Creatinine Ratio 22.2; Bilirubin, Total 0.2 mg/dL (0.2-1.0); Total Protein 7.4 g/dL (6.4-8.2)
== END | disposition home or self-care (01) ==
LOC: LAB 08:29
PROVIDERS: ATTEND Physician Assistant
DX: D50.9 Iron deficiency anemia, unspecified (principal); E78.5 Hyperlipidemia, unspecified; E78.1 Pure hyperglyceridemia; E11.9 Type 2 diabetes mellitus without complications; F41.9 Anxiety disorder, unspecified; R00.0 Tachycardia, unspecified
CPT/HCPCS: 36415; 80053; 80061; 81001; 83036; 85025

== ENCOUNTER → 2020-01-05 | Emergency (ER) | payer OTHER ==
[~2020-01-05] VITALS: Ht 175.3 cm; Wt 106.6 kg
[~2020-01-05] MED LIST changes: +LIDOCAINE 1% (LOCAL ANESTH.) PF 5ml SDV ID ONE; +SODIUM CHLOR 0.9% PF (SALINE LOCK) 10ML VIAL/SYR IV SCH
[2020-01-05 11:11] LABS: Basophils % (auto) 0.8 % (0.0-2.0); Eosinophils # (auto) 0.1 10 ^3/uL (0-0.8); Lymphocytes # (auto) 1.7 10 ^3/uL (0.4-5.4); Mean Corpuscular Volume 74.4 fL (80.0-100.0); Monocytes # (auto) 0.5 10 ^3/uL (0-1.3)
[2020-01-05 11:13] LABS: Basophils # (auto) 0.1 10 ^3/uL (0-0.2); Eosinophils % (auto) 1.7 % (0.0-7.0); Hematocrit 33.4 % (36.0-46.0); Hemoglobin 10.2 g/dL (12.2-16.2); Lymphocytes % (auto) 27.1 % (10.0-50.0); Mean Corpuscular Hemoglobin 22.8 pg (28.0-32.0); Mean Corpuscular Hgb Conc. 30.6 g/dL (32.0-36.0); Monocytes % (auto) 7.3 % (0.0-12.0); Neutrophils % (auto) 63.1 % (37.0-80.0); Nucleated Red Blood Cells % 0.1 %; Platelet Count (auto) 356 10^3/uL (140-450); Red Blood Cells 4.49 10^6/uL (4.0-5.20); Red Cell Distribution Width 19.6 % (11.8-14.3); White Blood Cell 6.4 10^3/uL (4.4-10.8)
[2020-01-05 11:29] LABS: Albumin 3.7 g/dL (3.4-5.0); Calcium 9.1 mg/dL (8.5-10.1); Potassium 3.7 mmol/L (3.5-5.1)
[2020-01-05 11:31] LABS: INR 0.99 (0.9-1.15); Partial Thromboplastin Time 26.2 sec (23.64-32.05)
[2020-01-05 11:32] LABS: Bilirubin, Total 0.4 mg/dL (0.2-1.0); Total Protein 7.9 g/dL (6.4-8.2)
[2020-01-05 11:53] LABS: Urine Bacteria NONE SEEN /hpf (None Seen); Urine Blood 2+ /uL (Negative); Urine Specific Gravity 1.032 (1.001-1.035); Urine WBC 3 /hpf (0 - 5)
--- NOTE | 2020-01-05 13:39 | NUR ---
PICC line placement Patient/Patient significant other educated on need for PICC line placement. All risks and benefits explained and all questions and concerns addressed prior to procedure. Noted past medical history and allergies with no contraindications. INR and Plt counts within acceptable range. 4 fr PICC line inserted via RIGHT CEPHALIC vein using [employer] US and Tip Location System. Sterile technique with maximum barrier precautions utilized. Blood return obtained from each of SINGLE lumens and each flushed easily with NS using proper technique. PICC secured with Stat-lock; biodisc and occlusive dressing applied. Stat portable chest x-ray obtained for PICC tip placement. *Baseline Arm Circumference 36CM. *INTERNAL LENGHT 46 CM * PICC lot # [id number]. Note:
--- NOTE | 2020-01-05 14:20 | NUR ---
OK to use PICC line Xray completed. OK to use PICC line by RADIOLOGY.
[2020-01-05 14:26] VITALS: BP 147/82
== END | disposition home or self-care (01) ==
LOC: MERGE 10:42 → ER 10:42
DX: Z45.2 Encounter for adjustment and management of vascular access device (principal); E10.621 Type 1 diabetes mellitus with foot ulcer; L97.521 Non-pressure chronic ulcer of other part of left foot limited to breakdown of skin; I10 Essential (primary) hypertension; Z90.49 Acquired absence of other specified parts of digestive tract
CPT/HCPCS: 36415; 36569; 71045; 80053; 81001; 85025; 85610; 85730; 99285; C1751; J7050

== ENCOUNTER → 2020-03-02 | Outpatient (CLI) | payer OTHER ==
[~2020-03-02] MED LIST changes: -LIDOCAINE 1% (LOCAL ANESTH.) PF 5ml SDV ID ONE; -SODIUM CHLOR 0.9% PF (SALINE LOCK) 10ML VIAL/SYR IV SCH
[2020-03-02 09:45] LABS: Basophils # (auto) 0 10 ^3/uL (0-0.2); Eosinophils # (auto) 0.2 10 ^3/uL (0-0.8); Hemoglobin 9.7 g/dL (12.2-16.2); Lymphocytes # (auto) 1.5 10 ^3/uL (0.4-5.4); Mean Corpuscular Volume 71.9 fL (80.0-100.0); Monocytes # (auto) 0.5 10 ^3/uL (0-1.3); Nucleated Red Blood Cells % 0.1 %
[2020-03-02 09:48] LABS: Basophils % (auto) 0.6 % (0.0-2.0); Eosinophils % (auto) 3.4 % (0.0-7.0); Hematocrit 32.4 % (36.0-46.0); Lymphocytes % (auto) 22.5 % (10.0-50.0); Mean Corpuscular Hemoglobin 21.6 pg (28.0-32.0); Neutrophils # (auto) 4.3 10 ^3/uL (1.6-8.6); Neutrophils % (auto) 65.5 % (37.0-80.0); Platelet Count (auto) 324 10^3/uL (140-450); Red Cell Distribution Width 19.7 % (11.8-14.3); White Blood Cell 6.6 10^3/uL (4.4-10.8)
[2020-03-02 09:57] LABS: Urine Bacteria NONE SEEN /hpf (None Seen); Urine Blood TRACE /uL (Negative); Urine Specific Gravity 1.018 (1.001-1.035); Urine WBC <1 /hpf (0 - 5)
[2020-03-02 10:24] LABS: Albumin 3.7 g/dL (3.4-5.0); Calcium 9.2 mg/dL (8.5-10.1); Potassium 4.1 mmol/L (3.5-5.1)
[2020-03-02 10:29] LABS: BUN/Creatinine Ratio 15.2; Bilirubin, Total 0.4 mg/dL (0.2-1.0)
== END | disposition home or self-care (01) ==
LOC: LAB 09:17
PROVIDERS: ATTEND Physician Assistant
DX: E11.49 Type 2 diabetes mellitus with other diabetic neurological complication (principal); E11.65 Type 2 diabetes mellitus with hyperglycemia; I10 Essential (primary) hypertension; E78.1 Pure hyperglyceridemia; E78.5 Hyperlipidemia, unspecified; D50.9 Iron deficiency anemia, unspecified
CPT/HCPCS: 36415; 80053; 80061; 81001; 83036; 85025

== ENCOUNTER → 2020-07-17 | Outpatient (CLI) | payer OTHER ==
[2020-07-17 09:56] LABS: Basophils # (auto) 0 10 ^3/uL (0-0.2); Hemoglobin 10.9 g/dL (12.2-16.2); Lymphocytes # (auto) 1.2 10 ^3/uL (0.4-5.4)
[2020-07-17 09:58] LABS: Basophils % (auto) 0.3 % (0.0-2.0); Eosinophils # (auto) 0.2 10 ^3/uL (0-0.8); Eosinophils % (auto) 2.1 % (0.0-7.0); Hematocrit 35.3 % (36.0-46.0); Lymphocytes % (auto) 10.5 % (10.0-50.0); Mean Corpuscular Hemoglobin 24.8 pg (28.0-32.0); Mean Corpuscular Volume 80.1 fL (80.0-100.0); Monocytes % (auto) 8.9 % (0.0-12.0); Neutrophils # (auto) 8.9 10 ^3/uL (1.6-8.6); Neutrophils % (auto) 78.2 % (37.0-80.0); Platelet Count (auto) 347 10^3/uL (140-450); Red Cell Distribution Width 20.1 % (11.8-14.3); White Blood Cell 11.4 10^3/uL (4.4-10.8)
[2020-07-17 10:42] LABS: BUN/Creatinine Ratio 7.8; Calcium 8.5 mg/dL (8.5-10.1); Potassium 3.9 mmol/L (3.5-5.1)
[2020-07-17 10:46] LABS: Bilirubin, Total 0.4 mg/dL (0.2-1.0); Total Protein 7.7 g/dL (6.4-8.2)
== END | disposition home or self-care (01) ==
LOC: LAB 09:24
PROVIDERS: ATTEND Podiatrist
DX: E11.621 Type 2 diabetes mellitus with foot ulcer (principal)
CPT/HCPCS: 36415; 80053; 83036; 85025

== ENCOUNTER 2020-07-31 14:57 | Inpatient (IN) | payer OTHER ==
[~2020-07-31] VITALS: Ht 175.3 cm; Wt 101.3 kg
[2020-07-31] MEDS ORDERED: KETOROLAC TROMETH 60MG/2ML VIAL IM ONE (15:30)
[2020-07-31] MEDS ORDERED: cefTRIAXone 1GM/50ML D5W 50 ML IV ONE (15:30)
[2020-07-31] MEDS ORDERED: VANCOMYCIN 1GM/250ML 250 ML IV ONE (16:00)
[2020-07-31 16:36] LABS: Basophils # (auto) 0 10 ^3/uL (0-0.2); Eosinophils # (auto) 0.1 10 ^3/uL (0-0.8); Lymphocytes # (auto) 0.8 10 ^3/uL (0.4-5.4)
[2020-07-31 16:38] LABS: Basophils % (auto) 0.4 % (0.0-2.0); Eosinophils % (auto) 0.5 % (0.0-7.0); Lymphocytes % (auto) 8.6 % (10.0-50.0); Mean Corpuscular Hemoglobin 25.6 pg (28.0-32.0); Mean Corpuscular Hgb Conc. 31.3 g/dL (32.0-36.0); Mean Corpuscular Volume 81.7 fL (80.0-100.0); Monocytes # (auto) 0.7 10 ^3/uL (0-1.3); Monocytes % (auto) 7.1 % (0.0-12.0); Neutrophils # (auto) 8.2 10 ^3/uL (1.6-8.6); Neutrophils % (auto) 83.4 % (37.0-80.0); Nucleated Red Blood Cells % 0.1 %; Platelet Count (auto) 391 10^3/uL (140-450); Red Blood Cells 3.92 10^6/uL (4.0-5.20); White Blood Cell 9.8 10^3/uL (4.4-10.8)
[2020-07-31 16:42] LABS: Red Cell Distribution Width 22.5 % (11.8-14.3)
[2020-07-31 16:52] LABS: Anion Gap 15 (5-15); Blood Urea Nitrogen 10 mg/dL (7-18); Calcium 8.8 mg/dL (8.5-10.1); Carbon Dioxide 21 mmol/L (21-32); Chloride 102 mmol/L (98-107); Glucose 220 mg/dL (74-106); Potassium 3.5 mmol/L (3.5-5.1); Sodium 138 mmol/L (136-145)
[2020-07-31 16:55] LABS: Alanine Aminotransferase 9 U/L (13-56); Alkaline Phosphatase 82 U/L (45-117); Aspartate Aminotransferase < 3 U/L (15-37); BUN/Creatinine Ratio 14.9; Bilirubin, Total 0.4 mg/dL (0.2-1.0); GFR African American 121 mL/min; GFR Non-African American 100 mL/min
[2020-07-31] MEDS ORDERED: DEXTROSE (50%) 50ML SYRG IV PRN (18:15)
[2020-07-31] MEDS ORDERED: ONDANSETRON HCL 4 MG/2 ML VIAL IV PRN (18:15)
[2020-07-31] MEDS ORDERED: DOCUSATE SOD 100 MG CAP PO PRN (18:15)
[2020-07-31] MEDS ORDERED: ACETAMINOPHEN 500 MG TAB PO PRN (18:15)
[2020-07-31] MEDS: InsuLIN REG 1unit/0.01ml Soln (100units/ml) SC SCH (22:00)
[2020-07-31] MEDS: ACCU-CHEK COMFORT CURVE STRIP VI SCH (22:00)
[2020-07-31] MEDS: CLINDAMYCIN 300MG IV 50 ML IV SCH (22:45)
[2020-08-01 00:30] VITALS: BP 125/82
--- NOTE | 2020-08-01 00:30 | NUR ---
MS admit from FERNANDA BANKS admitted to tele/MS after SBAR received. Patient oriented to Denise Busby, primary RN, unit, room, bed, and unit policies regarding patient care and visiting hours. Patient weighed by bedscale and encouraged to call if they need something. All questions and concerns addressed, patient verbalized understanding. Note:
[2020-08-01] MEDS: HYDROcodone-ACET 5/325MG TAB PO PRN ×4 (00:46→23:24)
[2020-08-01] MEDS: MORPHINE SULF INJ 2 MG/ML SYRINGE 1ML IV PRN ×2 (03:39→20:55)
[2020-08-01 05:27] VITALS: BP 119/53
[2020-08-01] MEDS: CLINDAMYCIN 300MG IV 50 ML IV SCH ×3 (05:34→21:26)
[2020-08-01] MEDS: ACCU-CHEK COMFORT CURVE STRIP VI SCH ×4 (06:19→21:26)
[2020-08-01] MEDS: InsuLIN REG 1unit/0.01ml Soln (100units/ml) SC SCH ×4 (06:19→21:27)
--- NOTE | 2020-08-01 07:30 | NUR ---
Opening Shift Note Assumed care of patient, awake and alert , bed is locked and in lowest position bed rails up x 2 , call light is with in reach. No S/S of distress/SOB or pain. Instructed on POC and to call for assistance PRN, will continue to monitor for changes Q1hr and PRN
[2020-08-01 09:00] VITALS: BP 116/72
[2020-08-01] MEDS: cefTRIAXone 1GM/50ML D5W 50 ML IV SCH (09:30)
[2020-08-01] MEDS: FLORASTOR (S. BOULARDII) 250 MG CAP PO SCH (09:30)
[2020-08-01] MEDS: FAMOTIDINE 20 MG TAB PO SCH (09:30)
--- NOTE | 2020-08-01 10:30 | NUR ---
Dr. Angeles at bedside
[2020-08-01 13:00] VITALS: BP 136/82
[2020-08-01 13:10] LABS: Basophils # (auto) 0 10 ^3/uL (0-0.2); Eosinophils # (auto) 0.1 10 ^3/uL (0-0.8); Hemoglobin 9.1 g/dL (12.2-16.2); Neutrophils # (auto) 7.7 10 ^3/uL (1.6-8.6); White Blood Cell 9.8 10^3/uL (4.4-10.8)
[2020-08-01 13:12] LABS: Basophils % (auto) 0.5 % (0.0-2.0); Eosinophils % (auto) 0.8 % (0.0-7.0); Hematocrit 29.2 % (36.0-46.0); Lymphocytes # (auto) 1.2 10 ^3/uL (0.4-5.4); Lymphocytes % (auto) 11.9 % (10.0-50.0); Mean Corpuscular Hemoglobin 25.5 pg (28.0-32.0); Mean Corpuscular Volume 82.3 fL (80.0-100.0); Monocytes # (auto) 0.8 10 ^3/uL (0-1.3); Monocytes % (auto) 8.1 % (0.0-12.0); Neutrophils % (auto) 78.7 % (37.0-80.0); Nucleated Red Blood Cells % 0.1 %; Platelet Count (auto) 347 10^3/uL (140-450); Red Blood Cells 3.55 10^6/uL (4.0-5.20)
[2020-08-01 13:13] LABS: Red Cell Distribution Width 22.2 % (11.8-14.3)
[2020-08-01 13:28] LABS: Albumin 2.4 g/dL (3.4-5.0); Calcium 8.4 mg/dL (8.5-10.1); Potassium 3.8 mmol/L (3.5-5.1)
[2020-08-01 13:36] LABS: BUN/Creatinine Ratio 16.1; Bilirubin, Total 0.4 mg/dL (0.2-1.0); CRP High Sensitivity 14.8 mg/dL (< 0.3); Total Protein 7.1 g/dL (6.4-8.2)
--- NOTE | 2020-08-01 14:07 | NUR ---
Assessment Patient is a 49 year old female, who is alert and oriented. Patient cognitive abilities are intact. Patient stated that prior to being admitted to [facility], patient could do all ADL's and ambulate independently. Patient stated that she is a diabetic. Patient stated that she is unemployed and take care of her financially. Patient stated that she lives with her (Julio [phone]), and their children. Patient stated that she will return home post discharge. Patient stated that she is not receptive on receiving advance directive forms. Discharge planning: Patient will return home post discharge, patient will follow up care with PCP post discharge. Patient will resume diabetic care at home, patient has all supplies that are needed for home diabetic care. There are no other discharge needs to address at the moment. Addendum: 08/01/20 at 1412 by MELI REY Amended: Links added.
[2020-08-01] MEDS ORDERED: POLYETHYLENE GLYCOL 17 GM PWDR PO ONE (15:30)
[2020-08-01 15:50] LABS: % Iron Saturation 7.5 % (15-50)
[2020-08-01 15:59] LABS: Folate (Folic Acid) 14.73 ng/mL (5.38-24)
[2020-08-01] MEDS ORDERED: LORazepam 0.5 MG TAB PO PRN (16:30)
--- NOTE | 2020-08-01 20:00 | NUR ---
Opening Shift Note Assumed care of patient, awake and alert, oriented x 4, follows direction. On room air with even and unlabored respirations. No S/S of distress/SOB.Patient has ice pack to left elbow, noted slight redness with swelling. Noted redness to left ankle, patient states she has "ringworms and see Dr. Mera every 2 weeks for treatment." Noted healed dry scab to left plantar foot, patient states "it's an old pressure ulcer." Patient ambulates independently with steady gait. Bed low locked position with side rails up x 2 and call light within reach. Instructed on POC and to call for assist PRN, will continue to monitor for changes Q1hr and PRN.
[2020-08-01 22:00] VITALS: BP 131/71
[2020-08-02 05:46] VITALS: BP 143/80
[2020-08-02] MEDS: ACCU-CHEK COMFORT CURVE STRIP VI SCH ×4 (06:58→21:49)
[2020-08-02] MEDS: CLINDAMYCIN 300MG IV 50 ML IV SCH ×2 (06:58→13:35)
[2020-08-02] MEDS: HYDROcodone-ACET 5/325MG TAB PO PRN ×3 (07:02→21:00)
--- NOTE | 2020-08-02 07:05 | NUR ---
Closing Note patient resting in bed with even and unlabored respirations. no s/s of distress. Bed low locked position with side rails up x 2 and call light within reach.
[2020-08-02] MEDS: InsuLIN REG 1unit/0.01ml Soln (100units/ml) SC SCH ×4 (07:08→21:55)
[2020-08-02 09:00] VITALS: BP 120/70
[2020-08-02] MEDS: POLYETHYLENE GLYCOL 17 GM PWDR PO SCH (09:41)
[2020-08-02] MEDS: cefTRIAXone 1GM/50ML D5W 50 ML IV SCH (09:43)
[2020-08-02] MEDS: FAMOTIDINE 20 MG TAB PO SCH (09:44)
[2020-08-02] MEDS: FLORASTOR (S. BOULARDII) 250 MG CAP PO SCH (09:44)
[2020-08-02] MEDS: LISINOPRIL 5 MG TAB PO SCH (09:45)
[2020-08-02 11:06] LABS: Basophils # (auto) 0 10 ^3/uL (0-0.2); Eosinophils # (auto) 0.1 10 ^3/uL (0-0.8); Hemoglobin 9.5 g/dL (12.2-16.2); Lymphocytes # (auto) 1.3 10 ^3/uL (0.4-5.4); Monocytes # (auto) 0.8 10 ^3/uL (0-1.3)
[2020-08-02 11:08] LABS: Basophils % (auto) 0.4 % (0.0-2.0); Eosinophils % (auto) 1.6 % (0.0-7.0); Lymphocytes % (auto) 14.2 % (10.0-50.0); Mean Corpuscular Hemoglobin 25.3 pg (28.0-32.0); Mean Corpuscular Hgb Conc. 30.6 g/dL (32.0-36.0); Mean Corpuscular Volume 82.5 fL (80.0-100.0); Neutrophils # (auto) 7.1 10 ^3/uL (1.6-8.6); Neutrophils % (auto) 74.8 % (37.0-80.0); Platelet Count (auto) 351 10^3/uL (140-450); Red Blood Cells 3.75 10^6/uL (4.0-5.20); White Blood Cell 9.4 10^3/uL (4.4-10.8)
[2020-08-02 11:14] LABS: Red Cell Distribution Width 22.5 % (11.8-14.3)
[2020-08-02 11:17] LABS: INR 1.03 (0.9-1.15); Partial Thromboplastin Time 29.8 sec (23.0-31.2)
[2020-08-02 11:25] LABS: BUN/Creatinine Ratio 16.7; Calcium 8.6 mg/dL (8.5-10.1); Potassium 3.8 mmol/L (3.5-5.1)
--- NOTE | 2020-08-02 19:30 | NUR ---
Opening Shift Note Assumed care of patient, awake and alert x4. No S/S of distress/SOB or pain. Call light is within reach, side rails up x2, bed is in the lowest position. Instructed on POC and to call for assist PRN, will continue to monitor for changes Q1hr and PRN.
[2020-08-02] MEDS: CLINDAMYCIN HCL 150 MG CAP PO SCH (21:49)
[2020-08-02 22:00] VITALS: BP 152/83
[2020-08-03] MEDS: HYDROcodone-ACET 5/325MG TAB PO PRN (03:14)
[2020-08-03] MEDS: ACCU-CHEK COMFORT CURVE STRIP VI SCH ×2 (06:37→12:25)
[2020-08-03] MEDS: CLINDAMYCIN HCL 150 MG CAP PO SCH ×2 (06:37→14:00)
[2020-08-03] MEDS: InsuLIN REG 1unit/0.01ml Soln (100units/ml) SC SCH ×2 (06:38→12:39)
[2020-08-03 09:00] VITALS: BP 123/67
[2020-08-03] MEDS: FLORASTOR (S. BOULARDII) 250 MG CAP PO SCH (09:51)
[2020-08-03] MEDS: cefTRIAXone 1GM/50ML D5W 50 ML IV SCH (09:51)
[2020-08-03] MEDS: POLYETHYLENE GLYCOL 17 GM PWDR PO SCH (09:51)
[2020-08-03] MEDS: LISINOPRIL 5 MG TAB PO SCH (09:52)
[2020-08-03] MEDS: FAMOTIDINE 20 MG TAB PO SCH (10:00)
[2020-08-03 13:00] VITALS: BP 129/68
[2020-08-03 13:58] VITALS: BP 123/67
--- NOTE | 2020-08-03 14:56 | NUR ---
Discharge instructions given as ordered. Encourage to follow up with PMD as instructed. All questions and concerns addressed. Patient verbalized understanding. Medication reconciliation form completed and copy given to patient. IV removed with catheter intact and pressure dressing applied. Patient taken to vehicle via wheelchair with all personal belongings, accompanied by staff. No distress noted at time of departure.
== END 2020-08-03 14:56 | disposition home or self-care (01) | DRG 549 ==
LOC: ER 14:57 → OVERFLOW 18:11 → WEST WING 23:11
PROVIDERS: ADMIT Nurse Practitioner Acute Care; ATTEND Internal Medicine
DX: M00.822 Arthritis due to other bacteria, left elbow (principal); L03.114 Cellulitis of left upper limb; E66.9 Obesity, unspecified; D50.9 Iron deficiency anemia, unspecified; E11.9 Type 2 diabetes mellitus without complications; Z82.49 Family history of ischemic heart disease and other diseases of the circulatory system; Z83.3 Family history of diabetes mellitus; Z89.429 Acquired absence of other toe(s), unspecified side; Z88.2 Allergy status to sulfonamides; Z68.33 Body mass index [BMI] 33.0-33.9, adult
CPT/HCPCS: 36415; 73200; 73221; 80048; 80053; 82607; 82746; 82962; 83540; 83550; 83615; 85025; 85045; 85610; 85652; 85730; 86141; 86200; 86431; 87040; 96365; 96368; 96372; G0378; J0696; J1815; J1885; J3490

== ENCOUNTER 2021-02-04 11:10 | Inpatient (IN) | payer OTHER ==
[~2021-02-04 11:10] MED LIST changes: -ROSU40TA PO
[2021-02-04 13:00] VITALS: BP 108/67
[2021-02-04 13:28] VITALS: BP 108/67
[2021-02-04] MEDS ORDERED: SODIUM CHLORIDE 0.9% 1,000 ML IV ONE ×2 (13:30→15:45)
[2021-02-04] MEDS ORDERED: DEXTROSE (50%) 50ML SYRG IV PRN (13:30)
[2021-02-04] MEDS ORDERED: VANCOMYCIN PER PHARMACY 0 MG IV SCH (13:30)
[2021-02-04] MEDS ORDERED: HYDROcodone-ACET 5/325MG TAB PO PRN (13:30)
[2021-02-04] MEDS ORDERED: ALPRAZolam 0.25 MG TAB PO PRN (13:30)
[2021-02-04] MEDS: metroNIDAZOLE 500MG/100ML 100 ML IV SCH ×2 (14:00→22:22)
[2021-02-04 14:39] LABS: Hematocrit 28.9 % (36.0-46.0); Hemoglobin 9.4 g/dL (12.2-16.2); Mean Corpuscular Hemoglobin 29.6 pg (28.0-32.0); Mean Corpuscular Hgb Conc. 32.4 g/dL (32.0-36.0); Mean Corpuscular Volume 91.1 fL (80.0-100.0); Platelet Count (auto) 383 10^3/uL (140-450); Red Blood Cells 3.17 10^6/uL (4.0-5.20); Red Cell Distribution Width 16.4 % (11.8-14.3); White Blood Cell 11.7 10^3/uL (4.4-10.8)
[2021-02-04 14:55] LABS: Albumin 2.2 g/dL (3.4-5.0); Calcium 8.6 mg/dL (8.5-10.1); Potassium 4.1 mmol/L (3.5-5.1)
[2021-02-04 14:58] LABS: Basophils % (manual) 0 (0.0-2.0); Blast Cells 0; Eosinophils % (manual) 0 (0-7); Metamyelocytes % 0; Myelocytes % 0; Promyelocytes % 0; Reactive Lymphocytes 0
[2021-02-04 14:59] LABS: BUN/Creatinine Ratio 17.8; Bilirubin, Total 0.5 mg/dL (0.2-1.0); Total Protein 7.3 g/dL (6.4-8.2)
[2021-02-04 15:00] LABS: INR 1.06 (0.9-1.15); Partial Thromboplastin Time 32.8 sec (23.0-31.2)
[2021-02-04] MEDS ORDERED: VANCOMYCIN 1GM/250ML 250 ML IV ONE (15:00)
[2021-02-04] MEDS ORDERED: LISI-716 PO (16:15)
[2021-02-04] MEDS ORDERED: ACET325T10 PO (16:18)
[2021-02-04] MEDS ORDERED: MULT-1018 PO (16:21)
[2021-02-04] MEDS ORDERED: FERR-20 PO (16:23)
[2021-02-04] MEDS ORDERED: LACTCAP35 PO (16:27)
[2021-02-04 17:11] LABS: Band Neutrophils % (manual) 35; Lymphocytes % (manual) 5 (10.0-50.0); Monocytes % (manual) 2 (0-12)
[2021-02-04 17:20] VITALS: BP 98/62
[2021-02-04] MEDS: InsuLIN REG 1unit/0.01ml Soln (100units/ml) SC SCH ×2 (17:54→22:28)
[2021-02-04] MEDS: ACCU-CHEK COMFORT CURVE STRIP VI SCH ×2 (17:54→22:22)
[2021-02-04] MEDS: VANCOMYCIN 1GM/250ML 250 ML IV SCH (19:00)
[2021-02-04 22:00] VITALS: BP 101/52
[2021-02-05 05:00] VITALS: BP 98/57
[2021-02-05] MEDS: metroNIDAZOLE 500MG/100ML 100 ML IV SCH ×3 (05:53→22:00)
[2021-02-05] MEDS: ACCU-CHEK COMFORT CURVE STRIP VI SCH ×4 (06:55→22:00)
[2021-02-05] MEDS: InsuLIN REG 1unit/0.01ml Soln (100units/ml) SC SCH ×4 (06:55→22:00)
[2021-02-05] MEDS: VANCOMYCIN 1GM/250ML 250 ML IV SCH ×2 (06:56→18:48)
[2021-02-05 08:19] VITALS: BP 108/64
[2021-02-05] MEDS: PANTOPRAZOLE 40 MG TAB PO SCH (09:37)
[2021-02-05] MEDS: cefTRIAXone 1GM/50ML D5W 50 ML IV SCH (09:37)
[2021-02-05 13:00] VITALS: BP 137/77
[2021-02-05 16:47] VITALS: BP 130/77
[2021-02-05 20:00] VITALS: BP 119/68
[2021-02-05] MEDS: ACETAMINOPHEN 500 MG TAB PO PRN (21:45)
[2021-02-05 22:00] VITALS: BP 119/68
[2021-02-06] MEDS: ACETAMINOPHEN 500 MG TAB PO PRN ×2 (01:38→16:55)
[2021-02-06 05:00] VITALS: BP 112/63
[2021-02-06] MEDS: metroNIDAZOLE 500MG/100ML 100 ML IV SCH ×3 (06:00→22:00)
[2021-02-06 06:44] LABS: Eosinophils # (auto) 0.1 10 ^3/uL (0-0.8); Hemoglobin 9.6 g/dL (12.2-16.2); Lymphocytes # (auto) 1.3 10 ^3/uL (0.4-5.4); Mean Corpuscular Volume 91.7 fL (80.0-100.0); Monocytes # (auto) 1.3 10 ^3/uL (0-1.3); Neutrophils % (auto) 83.3 % (37.0-80.0)
[2021-02-06 06:46] LABS: Basophils # (auto) 0 10 ^3/uL (0-0.2); Basophils % (auto) 0.3 % (0.0-2.0); Eosinophils % (auto) 0.8 % (0.0-7.0); Hematocrit 30.2 % (36.0-46.0); Lymphocytes % (auto) 7.8 % (10.0-50.0); Mean Corpuscular Hemoglobin 29.2 pg (28.0-32.0); Mean Corpuscular Hgb Conc. 31.8 g/dL (32.0-36.0); Monocytes % (auto) 7.8 % (0.0-12.0); Neutrophils # (auto) 13.9 10 ^3/uL (1.6-8.6); Nucleated Red Blood Cells % 0.4 %; Platelet Count (auto) 495 10^3/uL (140-450); Red Cell Distribution Width 17.3 % (11.8-14.3); White Blood Cell 16.7 10^3/uL (4.4-10.8)
[2021-02-06] MEDS: ACCU-CHEK COMFORT CURVE STRIP VI SCH ×4 (07:00→22:00)
[2021-02-06] MEDS: InsuLIN REG 1unit/0.01ml Soln (100units/ml) SC SCH ×4 (07:00→22:00)
[2021-02-06 07:15] LABS: Albumin 2.2 g/dL (3.4-5.0); Calcium 8.8 mg/dL (8.5-10.1); Potassium 4.1 mmol/L (3.5-5.1)
[2021-02-06 07:20] LABS: BUN/Creatinine Ratio 14.6; Bilirubin, Total 0.5 mg/dL (0.2-1.0)
[2021-02-06] MEDS: VANCOMYCIN 1GM/250ML 250 ML IV SCH ×2 (07:42→17:39)
[2021-02-06] MEDS ORDERED: BUPIVACAINE HCL 50 ML ONE (08:04)
[2021-02-06] MEDS ORDERED: LIDOCAINE 1% HCL (LOCAL ANESTH.) INJ 20ML MDV ONE (08:04)
[2021-02-06] MEDS ORDERED: fentaNYL CITRATE 100 MCG/2 ML VL ONE (08:45)
[2021-02-06] MEDS ORDERED: MIDAZOLAM HCL 1MG/1ML-2 ML VIAL ONE (08:45)
[2021-02-06] MEDS ORDERED: MEPERIDINE HCL (25 MG/ML) 1ML VIAL ONE (08:46)
[2021-02-06] MEDS ORDERED: PROPOFOL 10 MG/ML 20 ML IV ONE (08:56)
[2021-02-06] MEDS ORDERED: PHENYLEPHRINE HCL 10 MG/ML VL ONE (09:19)
[2021-02-06] MEDS ORDERED: HYDROmorphone HCL 2 MG/ML VL IV PRN (10:45)
[2021-02-06] MEDS ORDERED: ePHEDrine SULFATE 50 MG/ML AMP IV PRN (10:45)
[2021-02-06] MEDS ORDERED: MORPHINE SULFATE 4 MG/ML SYR/VIAL IV PRN (10:45)
[2021-02-06] MEDS ORDERED: LABETALOL HCL 5 MG/ML 4ML SYRINGE IV PRN (10:45)
[2021-02-06] MEDS ORDERED: ONDANSETRON HCL 4 MG/2 ML VIAL IV PRN (10:45)
[2021-02-06] MEDS: cefTRIAXone 1GM/50ML D5W 50 ML IV SCH (12:09)
[2021-02-06] MEDS: PANTOPRAZOLE 40 MG TAB PO SCH (12:10)
[2021-02-06 13:00] VITALS: BP 113/69
[2021-02-06] MEDS: MORPHINE SULF INJ 2 MG/ML SYRINGE 1ML IV PRN (16:53)
[2021-02-06] MEDS: ONDANSETRON HCL 4 MG/2 ML VIAL IV PRN (16:54)
[2021-02-06 17:00] VITALS: BP 102/68
[2021-02-06 20:00] VITALS: BP 118/71
[2021-02-06 22:00] VITALS: BP 118/71
[2021-02-07 05:00] VITALS: BP 120/95
[2021-02-07] MEDS: MORPHINE SULF INJ 2 MG/ML SYRINGE 1ML IV PRN ×2 (05:30→13:57)
[2021-02-07] MEDS: metroNIDAZOLE 500MG/100ML 100 ML IV SCH ×2 (05:39→13:47)
[2021-02-07 06:35] LABS: Basophils # (auto) 0 10 ^3/uL (0-0.2); Basophils % (auto) 0.3 % (0.0-2.0); Eosinophils # (auto) 0 10 ^3/uL (0-0.8); Eosinophils % (auto) 0.4 % (0.0-7.0); Hematocrit 26.4 % (36.0-46.0); Hemoglobin 8.7 g/dL (12.2-16.2); Lymphocytes # (auto) 0.9 10 ^3/uL (0.4-5.4); Lymphocytes % (auto) 7.7 % (10.0-50.0); Mean Corpuscular Hemoglobin 29.5 pg (28.0-32.0); Mean Corpuscular Hgb Conc. 32.9 g/dL (32.0-36.0); Mean Corpuscular Volume 89.5 fL (80.0-100.0); Monocytes # (auto) 0.9 10 ^3/uL (0-1.3); Monocytes % (auto) 7.5 % (0.0-12.0); Neutrophils # (auto) 9.5 10 ^3/uL (1.6-8.6); Neutrophils % (auto) 84.1 % (37.0-80.0); Nucleated Red Blood Cells % 0.1 %; Platelet Count (auto) 391 10^3/uL (140-450); Red Blood Cells 2.95 10^6/uL (4.0-5.20); Red Cell Distribution Width 17.1 % (11.8-14.3); White Blood Cell 11.3 10^3/uL (4.4-10.8)
[2021-02-07] MEDS: VANCOMYCIN 1GM/250ML 250 ML IV SCH ×2 (06:43→17:48)
[2021-02-07] MEDS: InsuLIN REG 1unit/0.01ml Soln (100units/ml) SC SCH ×3 (06:44→17:00)
[2021-02-07] MEDS: ACCU-CHEK COMFORT CURVE STRIP VI SCH ×3 (06:47→17:00)
[2021-02-07 09:00] VITALS: BP 126/73
[2021-02-07] MEDS: cefTRIAXone 1GM/50ML D5W 50 ML IV SCH (09:48)
[2021-02-07] MEDS: PANTOPRAZOLE 40 MG TAB PO SCH (09:49)
[2021-02-07 13:00] VITALS: BP 127/74
[2021-02-07] MEDS: ONDANSETRON HCL 4 MG/2 ML VIAL IV PRN (13:57)
[2021-02-07] MEDS ORDERED: LIDOCAINE 1% (LOCAL ANESTH.) PF 5ml SDV ID ONE (15:30)
[2021-02-07 17:00] VITALS: BP 127/74
[2021-02-07] MEDS ORDERED: SODIUM CHLOR 0.9% PF (SALINE LOCK) 10ML VIAL/SYR IV SCH (22:00)
== END 2021-02-07 19:00 | disposition home health service (06) | DRG 854 ==
LOC: WEST WING 11:10
PROVIDERS: ADMIT Nurse Practitioner Acute Care; ATTEND Family Medicine
PROC: 0Y6N0ZD Detachment at Left Foot, Partial 4th Ray, Open Approach (ICD-10-PCS; 2021-02-06)
PROC: 0Y6N0ZC Detachment at Left Foot, Partial 3rd Ray, Open Approach (ICD-10-PCS; principal; 2021-02-06 08:49)
DX: A41.9 Sepsis, unspecified organism (principal); L02.612 Cutaneous abscess of left foot; M86.172 Other acute osteomyelitis, left ankle and foot; D50.9 Iron deficiency anemia, unspecified; E11.40 Type 2 diabetes mellitus with diabetic neuropathy, unspecified; E11.69 Type 2 diabetes mellitus with other specified complication; E66.9 Obesity, unspecified; Z20.822 Contact with and (suspected) exposure to COVID-19; Z68.31 Body mass index [BMI] 31.0-31.9, adult; Z88.2 Allergy status to sulfonamides; F41.9 Anxiety disorder, unspecified; I10 Essential (primary) hypertension; Z79.4 Long term (current) use of insulin; Z79.899 Other long term (current) drug therapy; Z82.49 Family history of ischemic heart disease and other diseases of the circulatory system; Z83.3 Family history of diabetes mellitus
CPT/HCPCS: 36415; 36569; 73718; 80053; 80202; 82565; 82962; 83036; 83605; 84702; 85007; 85025; 85027; 85610; 85730; 86850; 86900; 86901; 87040; 87070; 87075; 87205; 87426; G0378; J0696; J1815; J2001; J2250; J2405; J2704; J3490

== ENCOUNTER 2021-02-11 18:17 | Inpatient (IN) | payer OTHER ==
[~2021-02-11] VITALS: Ht 175.3 cm; Wt 89.6 kg
[~2021-02-11 18:17] MED LIST changes: +ACET325T10 PO; +FERR-20 PO; -INSREG3 SUBCUT; +LACTCAP35 PO; -LEVEMIR SC; -LISI-275 PO; +LISI-716 PO; +MULT-1018 PO
[2021-02-11] MEDS ORDERED: VANCOMYCIN PER PHARMACY 0 MG IV SCH (21:00)
[2021-02-11] MEDS ORDERED: VANCOMYCIN 1GM/250ML 250 ML IV ONE ×2 (21:30→23:00)
[2021-02-11] MEDS ORDERED: SITA25TA3 PO (21:40)
[2021-02-11] MEDS ORDERED: METF-370 PO (21:40)
[2021-02-11] MEDS ORDERED: ROSU20TA14 PO (21:42)
[2021-02-11] MEDS ORDERED: EMPA1TAB3 PO (21:42)
[2021-02-11 22:00] VITALS: BP 111/66
[2021-02-11] MEDS ORDERED: cefTRIAXone 1GM/50ML D5W 50 ML IV ONE (22:30)
[2021-02-11 23:00] LABS: Eosinophils # (auto) 0.1 10 ^3/uL (0-0.8); Hemoglobin 8.9 g/dL (12.2-16.2); Monocytes # (auto) 0.8 10 ^3/uL (0-1.3)
[2021-02-11] MEDS: MORPHINE SULFATE INJECTION 2 MG/ML SYRG IV PRN (23:00)
[2021-02-11 23:01] LABS: Basophils # (auto) 0.1 10 ^3/uL (0-0.2); Basophils % (auto) 0.8 % (0.0-2.0); Eosinophils % (auto) 0.9 % (0.0-7.0); Hematocrit 28.2 % (36.0-46.0); Lymphocytes # (auto) 1.3 10 ^3/uL (0.4-5.4); Lymphocytes % (auto) 9.7 % (10.0-50.0); Mean Corpuscular Hemoglobin 28.9 pg (28.0-32.0); Mean Corpuscular Hgb Conc. 31.6 g/dL (32.0-36.0); Mean Corpuscular Volume 91.5 fL (80.0-100.0); Monocytes % (auto) 6.3 % (0.0-12.0); Neutrophils # (auto) 10.6 10 ^3/uL (1.6-8.6); Neutrophils % (auto) 82.3 % (37.0-80.0); Nucleated Red Blood Cells % 0.1 %; Red Blood Cells 3.08 10^6/uL (4.0-5.20); Red Cell Distribution Width 17.1 % (11.8-14.3); White Blood Cell 12.9 10^3/uL (4.4-10.8)
[2021-02-12 01:11] LABS: Calcium 8.4 mg/dL (8.5-10.1); Potassium 4.3 mmol/L (3.5-5.1)
[2021-02-12 01:19] LABS: BUN/Creatinine Ratio 16.5; Bilirubin, Total 0.5 mg/dL (0.2-1.0); Total Protein 8.1 g/dL (6.4-8.2)
[2021-02-12 01:24] LABS: INR 0.99 (0.9-1.15); Partial Thromboplastin Time 25.1 sec (23.0-31.2)
[2021-02-12] MEDS: HYDROcodone-ACET 10/325MG TAB PO PRN ×2 (04:15→22:10)
[2021-02-12 05:00] VITALS: BP 91/50
[2021-02-12 05:17] LABS: Basophils # (auto) 0 10 ^3/uL (0-0.2); Basophils % (auto) 0.2 % (0.0-2.0)
[2021-02-12 05:19] LABS: Eosinophils # (auto) 0.3 10 ^3/uL (0-0.8); Eosinophils % (auto) 1.8 % (0.0-7.0); Hemoglobin 9.5 g/dL (12.2-16.2); Lymphocytes # (auto) 2.3 10 ^3/uL (0.4-5.4); Lymphocytes % (auto) 15.2 % (10.0-50.0); Mean Corpuscular Hemoglobin 29.5 pg (28.0-32.0); Mean Corpuscular Hgb Conc. 31.7 g/dL (32.0-36.0); Mean Corpuscular Volume 92.9 fL (80.0-100.0); Monocytes # (auto) 0.9 10 ^3/uL (0-1.3); Monocytes % (auto) 6.3 % (0.0-12.0); Neutrophils # (auto) 11.4 10 ^3/uL (1.6-8.6); Neutrophils % (auto) 76.5 % (37.0-80.0); Nucleated Red Blood Cells % 0.1 %; Red Blood Cells 3.23 10^6/uL (4.0-5.20); Red Cell Distribution Width 17.7 % (11.8-14.3); White Blood Cell 14.8 10^3/uL (4.4-10.8)
[2021-02-12 05:36] LABS: Potassium 3.4 mmol/L (3.5-5.1)
[2021-02-12 05:37] LABS: Urine Bacteria FEW /hpf (None Seen); Urine Blood Negative /uL (Negative); Urine Hyaline Cast FEW /lpf (0 - 2); Urine WBC 3 /hpf (0 - 5)
[2021-02-12 05:45] LABS: BUN/Creatinine Ratio 14.7; Calcium 8.9 mg/dL (8.5-10.1)
[2021-02-12] MEDS ORDERED: SODIUM CHLORIDE 0.9% 1,000 ML IV ONE (07:15)
[2021-02-12] MEDS ORDERED: DEXTROSE (50%) 50ML SYRG IV PRN (07:15)
[2021-02-12] MEDS ORDERED: SODIUM CHLORIDE 0.9% 1,000 ML IV SCH (07:15)
[2021-02-12 08:00] VITALS: BP 99/52
[2021-02-12] MEDS ORDERED: SODIUM BICARBONATE 50ML VIAL 50 ML in SOD CHL 0.45% 1,000 ML IV SCH (08:15)
[2021-02-12 08:45] LABS: Cholesterol 149 mg/dL (< 200)
[2021-02-12 08:48] LABS: HDL Cholesterol 21 mg/dL (40-59); LDL Cholesterol 57 mg/dL (< 100); Triglycerides 396 mg/dL (< 150)
[2021-02-12 08:53] LABS: Protein, Urine 85.4 mg/dL (0.0-11.9)
[2021-02-12] MEDS ORDERED: cefTRIAXone 1GM/50ML D5W 50 ML IV SCH (09:00)
[2021-02-12] MEDS: ENOXAPARIN SOD 100 MG/1 ML SYRINGE SC SCH ×2 (09:47→22:02)
[2021-02-12] MEDS: LINEZOLID 600MG/300ML 300 ML IV SCH ×2 (09:47→22:01)
[2021-02-12] MEDS ORDERED: IRON SUCROSE COMPLEX 200 MG in SODIUM CHL 0.9% 100 ML IV SCH (12:00)
[2021-02-12] MEDS ORDERED: SODIUM BICARBONATE 8.4 % INJ 50ML VIAL IV ONE (12:30)
[2021-02-12] MEDS: ACCU-CHEK COMFORT CURVE STRIP VI SCH ×2 (12:37→18:28)
[2021-02-12] MEDS: InsuLIN REG 1unit/0.01ml Soln (100units/ml) SC SCH ×2 (12:40→18:28)
[2021-02-12 12:48] LABS: Magnesium 2.5 mg/dL (1.6-2.6); Phosphorus 4.5 mg/dL (2.5-4.90)
[2021-02-12] MEDS ORDERED: POTASSIUM CHL 20 Meq TABLET PO ONE ×2 (13:00→15:15)
[2021-02-12 13:28] LABS: Alcohol, Urine < 3.0 mg/dL (0-10); Amphetamine Screen, Urine NEGATIVE (NEGATIVE); Barbiturate Scree,Urine NEGATIVE (NEGATIVE); Benzodiazephine Screen, Urine NEGATIVE (NEGATIVE); Cannabinoid Screen, Urine NEGATIVE (NEGATIVE); Cocaine Screen, Urine NEGATIVE (NEGATIVE); Opiate Scree,Urine NEGATIVE (NEGATIVE); Phencyclidine Screen, Urine NEGATIVE (NEGATIVE)
[2021-02-12] MEDS: SODIUM FERR GLUC 125 MG in NS 100 ML IV SCH (14:13)
[2021-02-12] MEDS: MEROPENEM 1GM IVPB 100 ML IV SCH (15:23)
[2021-02-12 17:00] VITALS: BP 129/75
[2021-02-12] MEDS: SODIUM BICARBONATE 50ML VIAL 150 ML in D5W 5% 1,000 ML IV SCH (17:32)
[2021-02-12] MEDS: MORPHINE SULFATE INJECTION 2 MG/ML SYRG IV PRN (17:47)
[2021-02-12 21:45] LABS: BUN/Creatinine Ratio 12.3; Calcium 8.5 mg/dL (8.5-10.1); Potassium 4.6 mmol/L (3.5-5.1)
[2021-02-12 22:00] VITALS: BP 131/76
[2021-02-12] MEDS: DAKINS QUARTER STR 0.125% (NaHypochlorite) 473 ML TOPICAL SOL TOP SCH (22:00)
[2021-02-12] MEDS ORDERED: VANCOMYCIN 1GM/250ML 250 ML IV SCH (22:00)
[2021-02-13] MEDS: MEROPENEM 1GM IVPB 100 ML IV SCH ×3 (00:50→17:46)
[2021-02-13] MEDS: ACCU-CHEK COMFORT CURVE STRIP VI SCH ×4 (01:18→17:46)
[2021-02-13] MEDS: MORPHINE SULFATE INJECTION 2 MG/ML SYRG IV PRN ×2 (01:19→15:59)
[2021-02-13] MEDS: InsuLIN REG 1unit/0.01ml Soln (100units/ml) SC SCH ×4 (01:19→17:46)
[2021-02-13 05:00] VITALS: BP 115/67
[2021-02-13 05:26] LABS: BUN/Creatinine Ratio 10.4; Calcium 8.2 mg/dL (8.5-10.1); Magnesium 2.2 mg/dL (1.6-2.6)
[2021-02-13] MEDS: HYDROcodone-ACET 10/325MG TAB PO PRN ×2 (06:05→22:07)
[2021-02-13 08:00] VITALS: BP 115/67
[2021-02-13] MEDS ORDERED: LIDOCAINE 1% HCL (LOCAL ANESTH.) INJ 20ML MDV ONE ×2 (09:09→11:35)
[2021-02-13] MEDS: ENOXAPARIN SOD 100 MG/1 ML SYRINGE SC SCH ×2 (10:00→22:03)
[2021-02-13] MEDS ORDERED: ERGOCALCIFEROL 50,000 UNIT(1.25MG) CAP PO SCH (10:00)
[2021-02-13] MEDS: DAKINS QUARTER STR 0.125% (NaHypochlorite) 473 ML TOPICAL SOL TOP SCH ×2 (10:00→22:00)
[2021-02-13] MEDS: LINEZOLID 600MG/300ML 300 ML IV SCH ×2 (10:57→14:04)
[2021-02-13] MEDS: SODIUM BICARBONATE 50ML VIAL 150 ML in D5W 5% 1,000 ML IV SCH ×4 (11:30→23:20)
[2021-02-13] MEDS ORDERED: BUPIVACAINE HCL 50 ML ONE (11:35)
[2021-02-13] MEDS ORDERED: METOCLOPRAMIDE HCL 5MG/ml INJ 2ml VIAL IV PRN (12:00)
[2021-02-13] MEDS ORDERED: HYDROmorphone HCL 2 MG/ML VL IV PRN (12:00)
[2021-02-13] MEDS ORDERED: MORPHINE SULFATE INJECTION 2 MG/ML SYRG IV PRN (12:00)
[2021-02-13] MEDS ORDERED: MIDAZOLAM HCL 2MG/2ML 2ml VIAL (1mg/ml) ONE (12:03)
[2021-02-13] MEDS ORDERED: SODIUM CHLORIDE LOCK 10 ML ONE (12:03)
[2021-02-13] MEDS ORDERED: KETAMINE HCL 10 ML ONE (12:03)
[2021-02-13] MEDS ORDERED: ONDANSETRON HCL 4 MG/2 ML VIAL ONE (12:03)
[2021-02-13] MEDS ORDERED: fentaNYL CITRATE 100 MCG/2 ML VL ONE (12:03)
[2021-02-13] MEDS ORDERED: PROPOFOL 10 MG/ML 20 ML IV ONE (12:03)
[2021-02-13] MEDS ORDERED: ceFAZolin 1GM VL ONE (13:02)
[2021-02-13 14:30] VITALS: BP 130/71
[2021-02-13] MEDS: SODIUM FERR GLUC 125 MG in NS 100 ML IV SCH (16:00)
[2021-02-13 17:00] VITALS: BP 119/77
[2021-02-13 20:00] VITALS: BP 118/67
[2021-02-13 22:00] VITALS: BP 119/68
[2021-02-14] MEDS: MEROPENEM 1GM IVPB 100 ML IV SCH ×2 (00:12→09:35)
[2021-02-14] MEDS: ACCU-CHEK COMFORT CURVE STRIP VI SCH ×4 (00:17→17:18)
[2021-02-14] MEDS: InsuLIN REG 1unit/0.01ml Soln (100units/ml) SC SCH ×4 (00:28→18:00)
[2021-02-14] MEDS: LINEZOLID 600MG/300ML 300 ML IV SCH ×2 (04:01→14:00)
[2021-02-14 05:00] VITALS: BP 118/67
[2021-02-14 05:14] LABS: BUN/Creatinine Ratio 8.3; Calcium 8.2 mg/dL (8.5-10.1); Magnesium 2.3 mg/dL (1.6-2.6); Phosphorus 2.4 mg/dL (2.5-4.90); Potassium 3.9 mmol/L (3.5-5.1)
[2021-02-14] MEDS ORDERED: POTASSIUM PHOSPHATE 26.4 MEQ in SODIUM CHL 0.9% 100 ML IV ONE (08:30)
[2021-02-14] MEDS: ENOXAPARIN SOD 100 MG/1 ML SYRINGE SC SCH ×2 (08:35→21:48)
[2021-02-14 09:50] VITALS: BP 123/78
[2021-02-14] MEDS: DAKINS QUARTER STR 0.125% (NaHypochlorite) 473 ML TOPICAL SOL TOP SCH (10:00)
[2021-02-14] MEDS: SODIUM BICARBONATE 50ML VIAL 150 ML in D5W 5% 1,000 ML IV SCH ×2 (10:30→21:47)
[2021-02-14] MEDS: SODIUM FERR GLUC 125 MG in NS 100 ML IV SCH (12:00)
[2021-02-14 13:00] VITALS: BP 106/74
[2021-02-14] MEDS: MORPHINE SULFATE INJECTION 2 MG/ML SYRG IV PRN (16:41)
[2021-02-14] MEDS: HYDROcodone-ACET 10/325MG TAB PO PRN (16:41)
[2021-02-14 17:00] VITALS: BP 127/77
[2021-02-14] MEDS: PIPERACILLIN-TAZOB 3.375GM 100 ML IV SCH (17:58)
[2021-02-14 22:00] VITALS: BP 116/70
[2021-02-15] MEDS: DAKINS QUARTER STR 0.125% (NaHypochlorite) 473 ML TOPICAL SOL TOP SCH ×2 (00:09→10:00)
[2021-02-15] MEDS: PIPERACILLIN-TAZOB 3.375GM 100 ML IV SCH ×3 (00:09→12:00)
[2021-02-15] MEDS: ACCU-CHEK COMFORT CURVE STRIP VI SCH ×3 (00:10→12:00)
[2021-02-15] MEDS: InsuLIN REG 1unit/0.01ml Soln (100units/ml) SC SCH ×3 (00:17→12:49)
[2021-02-15] MEDS ORDERED: ONDANSETRON ODT 4 MG TAB PO PRN (03:00)
[2021-02-15 05:00] VITALS: BP 107/69
[2021-02-15] MEDS ORDERED: LINEZOLID 600MG/300ML 300 ML IV SCH (05:00)
[2021-02-15 05:57] LABS: Potassium 3.4 mmol/L (3.5-5.1)
[2021-02-15 06:03] LABS: BUN/Creatinine Ratio 9.7; Calcium 8.2 mg/dL (8.5-10.1); Magnesium 2.2 mg/dL (1.6-2.6); Phosphorus 2.4 mg/dL (2.5-4.90)
[2021-02-15 08:00] VITALS: BP 115/72
[2021-02-15] MEDS ORDERED: POTASSIUM PHOSPHATE 26.4 MEQ in SODIUM CHL 0.9% 100 ML IV ONE (09:00)
[2021-02-15 09:08] LABS: Basophils # (auto) 0 10 ^3/uL (0-0.2); Basophils % (auto) 0.8 % (0.0-2.0); Eosinophils # (auto) 0.3 10 ^3/uL (0-0.8); Eosinophils % (auto) 4.7 % (0.0-7.0); Hematocrit 26.4 % (36.0-46.0); Hemoglobin 8.8 g/dL (12.2-16.2); Lymphocytes % (auto) 16.8 % (10.0-50.0); Mean Corpuscular Hemoglobin 29.3 pg (28.0-32.0); Mean Corpuscular Hgb Conc. 33.5 g/dL (32.0-36.0); Mean Corpuscular Volume 87.5 fL (80.0-100.0); Monocytes # (auto) 0.6 10 ^3/uL (0-1.3); Monocytes % (auto) 10.7 % (0.0-12.0); Neutrophils # (auto) 4.1 10 ^3/uL (1.6-8.6); Nucleated Red Blood Cells % 0.1 %; Red Blood Cells 3.02 10^6/uL (4.0-5.20); Red Cell Distribution Width 16.8 % (11.8-14.3); White Blood Cell 6.1 10^3/uL (4.4-10.8)
[2021-02-15] MEDS: ENOXAPARIN SOD 100 MG/1 ML SYRINGE SC SCH (10:00)
[2021-02-15] MEDS ORDERED: CATHFLO ACTIVASE (ALTEPLASE) 2 MG VIAL IV ONE (11:30)
[2021-02-15 12:00] VITALS: BP 116/75
[2021-02-15] MEDS: SODIUM FERR GLUC 125 MG in NS 100 ML IV SCH (12:00)
[2021-02-15 16:00] VITALS: BP 114/75
== END 2021-02-15 15:00 | disposition home health service (06) | DRG 853 ==
LOC: TELE 18:17 → TELE-CENTR 18:54 → CENTRAL 22:30
PROVIDERS: ADMIT Nurse Practitioner Acute Care; ATTEND Internal Medicine
PROC: 0JBR0ZZ Excision of Left Foot Subcutaneous Tissue and Fascia, Open Approach (ICD-10-PCS; principal; 2021-02-13 12:19)
DX: A41.9 Sepsis, unspecified organism (principal); J96.01 Acute respiratory failure with hypoxia; E44.0 Moderate protein-calorie malnutrition; E87.2 Acidosis; L03.116 Cellulitis of left lower limb; N17.9 Acute kidney failure, unspecified; M86.8X7 Other osteomyelitis, ankle and foot; Z20.822 Contact with and (suspected) exposure to COVID-19; D50.9 Iron deficiency anemia, unspecified; D63.8 Anemia in other chronic diseases classified elsewhere; E11.22 Type 2 diabetes mellitus with diabetic chronic kidney disease; E11.69 Type 2 diabetes mellitus with other specified complication; E78.00 Pure hypercholesterolemia, unspecified; E78.5 Hyperlipidemia, unspecified; E87.6 Hypokalemia; I12.9 Hypertensive chronic kidney disease with stage 1 through stage 4 chronic kidney disease, or unspecified chronic kidney disease; N18.2 Chronic kidney disease, stage 2 (mild); T36.8X5A Adverse effect of other systemic antibiotics, initial encounter; Z79.01 Long term (current) use of anticoagulants; Z82.49 Family history of ischemic heart disease and other diseases of the circulatory system; Z83.3 Family history of diabetes mellitus; Y92.89 Other specified places as the place of occurrence of the external cause; Z68.29 Body mass index [BMI] 29.0-29.9, adult; Z88.2 Allergy status to sulfonamides; Z79.899 Other long term (current) drug therapy
CPT/HCPCS: 36415; 36600; 71046; 73700; 76775; 78582; 80048; 80053; 80061; 80202; 80307; 81001; 82010; 82043; 82306; 82570; 82805; 82962; 83605; 83735; 83930; 84100; 84156; 84300; 84443; 84702; 85025; 85049; 85379; 85610; 85652; 85730; 86141; 86850; 86900; 86901; 87040; 87070; 87075; 87076; 87081; 87205; 87426; 93970; G0378; J0690; J0696; J1756; J1815; J2001; J2185; J2250; J2405; J2543; J2704; J3490; Q0162

== ENCOUNTER → 2021-04-02 | Outpatient (CLI) | payer OTHER ==
[~2021-04-02] MED LIST changes: +EMPA1TAB3 PO; +METF-370 PO; +ROSU20TA14 PO; +SITA25TA3 PO
[2021-04-02 14:22] LABS: Basophils # (auto) 0 10 ^3/uL (0-0.2); Mean Corpuscular Volume 102.5 fL (80.0-100.0); Monocytes # (auto) 0.4 10 ^3/uL (0-1.3); White Blood Cell 4.6 10^3/uL (4.4-10.8)
[2021-04-02 14:24] LABS: Basophils % (auto) 0.5 % (0.0-2.0); Eosinophils # (auto) 0 10 ^3/uL (0-0.8); Eosinophils % (auto) 1.1 % (0.0-7.0); Hematocrit 25.2 % (36.0-46.0); Hemoglobin 8.3 g/dL (12.2-16.2); Lymphocytes # (auto) 0.8 10 ^3/uL (0.4-5.4); Lymphocytes % (auto) 17.7 % (10.0-50.0); Mean Corpuscular Hemoglobin 33.5 pg (28.0-32.0); Mean Corpuscular Hgb Conc. 32.7 g/dL (32.0-36.0); Monocytes % (auto) 9.1 % (0.0-12.0); Neutrophils # (auto) 3.3 10 ^3/uL (1.6-8.6); Neutrophils % (auto) 71.6 % (37.0-80.0); Nucleated Red Blood Cells % 0.3 %; Red Blood Cells 2.46 10^6/uL (4.0-5.20)
[2021-04-02 14:29] LABS: Red Cell Distribution Width 31.6 % (11.8-14.3)
[2021-04-02 14:50] LABS: BUN/Creatinine Ratio 7.9
== END | disposition home or self-care (01) ==
LOC: LAB 14:10
PROVIDERS: ATTEND Family Medicine
DX: M86.9 Osteomyelitis, unspecified (principal)
CPT/HCPCS: 36415; 80048; 85025

== ENCOUNTER → 2021-04-10 | Outpatient (CLI) | payer OTHER ==
[2021-04-10 15:57] LABS: Basophils # (auto) 0 10 ^3/uL (0-0.2); Eosinophils # (auto) 0 10 ^3/uL (0-0.8); Lymphocytes # (auto) 0.7 10 ^3/uL (0.4-5.4); Monocytes # (auto) 0.5 10 ^3/uL (0-1.3); Monocytes % (auto) 9.9 % (0.0-12.0); Neutrophils # (auto) 3.8 10 ^3/uL (1.6-8.6)
[2021-04-10 16:01] LABS: Basophils % (auto) 0.3 % (0.0-2.0); Eosinophils % (auto) 0.4 % (0.0-7.0); Hematocrit 25.9 % (36.0-46.0); Hemoglobin 8.4 g/dL (12.2-16.2); Lymphocytes % (auto) 13.8 % (10.0-50.0); Mean Corpuscular Hemoglobin 33.3 pg (28.0-32.0); Mean Corpuscular Hgb Conc. 32.3 g/dL (32.0-36.0); Mean Corpuscular Volume 103.2 fL (80.0-100.0); Neutrophils % (auto) 75.6 % (37.0-80.0); Nucleated Red Blood Cells % 0.3 %; Red Blood Cells 2.51 10^6/uL (4.0-5.20)
[2021-04-10 16:08] LABS: Red Cell Distribution Width 31.5 % (11.8-14.3)
[2021-04-10 16:22] LABS: BUN/Creatinine Ratio 13.3; Calcium 8.4 mg/dL (8.5-10.1)
== END | disposition home or self-care (01) ==
LOC: LAB 15:45
PROVIDERS: ATTEND Internal Medicine
DX: M86.9 Osteomyelitis, unspecified (principal)
CPT/HCPCS: 36415; 80048; 85025

== ENCOUNTER 2021-04-15 09:54 | Emergency (ER) | payer OTHER ==
[~2021-04-15] VITALS: Ht 175.3 cm; Wt 89.4 kg
[2021-04-15 09:54] VITALS: BP 157/91
[2021-04-15 10:32] LABS: Basophils # (auto) 0 10 ^3/uL (0-0.2); Basophils % (auto) 0.3 % (0.0-2.0); Eosinophils # (auto) 0.1 10 ^3/uL (0-0.8); Neutrophils # (auto) 6.2 10 ^3/uL (1.6-8.6); White Blood Cell 8.3 10^3/uL (4.4-10.8)
[2021-04-15 10:34] LABS: Eosinophils % (auto) 1.8 % (0.0-7.0); Hematocrit 27.7 % (36.0-46.0); Hemoglobin 9.1 g/dL (12.2-16.2); Lymphocytes # (auto) 1.1 10 ^3/uL (0.4-5.4); Lymphocytes % (auto) 13.5 % (10.0-50.0); Mean Corpuscular Hgb Conc. 32.8 g/dL (32.0-36.0); Mean Corpuscular Volume 103.8 fL (80.0-100.0); Monocytes # (auto) 0.8 10 ^3/uL (0-1.3); Monocytes % (auto) 10.1 % (0.0-12.0); Neutrophils % (auto) 74.3 % (37.0-80.0); Nucleated Red Blood Cells % 0.3 %; Red Blood Cells 2.67 10^6/uL (4.0-5.20)
[2021-04-15 10:39] LABS: Red Cell Distribution Width 31.4 % (11.8-14.3)
[2021-04-15 10:50] LABS: Calcium 8.3 mg/dL (8.5-10.1); Potassium 3.4 mmol/L (3.5-5.1)
[2021-04-15 10:54] LABS: BUN/Creatinine Ratio 13.8; Bilirubin, Total 0.6 mg/dL (0.2-1.0)
== END 2021-04-15 12:23 | disposition home or self-care (01) ==
LOC: ER 09:54
DX: R22.42 Localized swelling, mass and lump, left lower limb (principal); I10 Essential (primary) hypertension; E11.9 Type 2 diabetes mellitus without complications; Z88.0 Allergy status to penicillin; Z88.2 Allergy status to sulfonamides; Z79.899 Other long term (current) drug therapy; Z79.84 Long term (current) use of oral hypoglycemic drugs; Z90.49 Acquired absence of other specified parts of digestive tract
CPT/HCPCS: 36415; 73562; 80053; 85025; 93971

== ENCOUNTER → 2021-06-12 | Outpatient (CLI) | payer OTHER | END | disposition home or self-care (01) | LOC: LAB 16:13 | PROVIDERS: ATTEND Internal Medicine | DX: E11.621 Type 2 diabetes mellitus with foot ulcer (principal) | CPT/HCPCS: 36415; 83036; 87077; 87186; 87205 ==

== ENCOUNTER → 2021-07-24 | Outpatient (CLI) | payer OTHER | END | disposition home or self-care (01) | LOC: LAB 15:33 | PROVIDERS: ATTEND Internal Medicine | DX: E11.621 Type 2 diabetes mellitus with foot ulcer (principal) | CPT/HCPCS: 36415; 85652 ==

== ENCOUNTER → 2021-08-07 | Outpatient (CLI) | payer OTHER | END | disposition home or self-care (01) | LOC: LAB 17:01 | PROVIDERS: ATTEND Podiatrist | DX: E11.621 Type 2 diabetes mellitus with foot ulcer (principal) | CPT/HCPCS: 87205 ==

== ENCOUNTER → 2021-09-27 | Outpatient (CLI) | payer OTHER ==
[2021-09-27 09:52] LABS: Albumin 3.4 g/dL (3.4-5.0); Anion Gap 3 (5-15); Calcium 8.8 mg/dL (8.5-10.1); Carbon Dioxide 27 mmol/L (21-32); Chloride 108 mmol/L (98-107); Glucose 127 mg/dL (74-106); Potassium 4.5 mmol/L (3.5-5.1); Sodium 138 mmol/L (136-145)
[2021-09-27 09:55] LABS: Basophils # (auto) 0 10 ^3/uL (0-0.2); Basophils % (auto) 0.5 % (0.0-2.0); Eosinophils # (auto) 0.2 10 ^3/uL (0-0.8); Hematocrit 33.8 % (36.0-46.0); Hemoglobin 10.6 g/dL (12.2-16.2); Lymphocytes # (auto) 1.7 10 ^3/uL (0.4-5.4); Lymphocytes % (auto) 24.2 % (10.0-50.0); Mean Corpuscular Hgb Conc. 31.4 g/dL (32.0-36.0); Mean Corpuscular Volume 79.7 fL (80.0-100.0); Monocytes # (auto) 0.5 10 ^3/uL (0-1.3); Monocytes % (auto) 7.8 % (0.0-12.0); Neutrophils # (auto) 4.5 10 ^3/uL (1.6-8.6); Neutrophils % (auto) 64.5 % (37.0-80.0); Red Blood Cells 4.24 10^6/uL (4.0-5.20); Red Cell Distribution Width 18.4 % (11.8-14.3)
[2021-09-27 10:00] LABS: Alanine Aminotransferase 22 U/L (13-56); Alkaline Phosphatase 64 U/L (45-117); Aspartate Aminotransferase 19 U/L (15-37); BUN/Creatinine Ratio 41.1; Bilirubin, Total 0.2 mg/dL (0.2-1.0); Blood Urea Nitrogen 23 mg/dL (7-18); CRP High Sensitivity 0.73 mg/dL (< 0.3); GFR African American 149 mL/min; GFR Non-African American 123 mL/min; Total Protein 7.4 g/dL (6.4-8.2)
== END | disposition home or self-care (01) ==
LOC: LAB 07:39
PROVIDERS: ATTEND Podiatrist
DX: E11.621 Type 2 diabetes mellitus with foot ulcer (principal)
CPT/HCPCS: 36415; 80053; 85025; 85652; 86141

== ENCOUNTER → 2021-10-02 | Outpatient (CLI) | payer OTHER | END | disposition home or self-care (01) | LOC: LAB 08:32 | PROVIDERS: ATTEND Podiatrist | DX: E11.621 Type 2 diabetes mellitus with foot ulcer (principal) | CPT/HCPCS: 36415; 82565; 84520 ==

== ENCOUNTER → 2021-10-08 | Outpatient (CLI) | payer OTHER ==
[2021-10-08 12:40] LABS: Basophils # (auto) 0 10 ^3/uL (0-0.2); Eosinophils # (auto) 0.2 10 ^3/uL (0-0.8); Lymphocytes # (auto) 1.8 10 ^3/uL (0.4-5.4); Mean Corpuscular Volume 79.8 fL (80.0-100.0); Monocytes # (auto) 0.5 10 ^3/uL (0-1.3)
[2021-10-08 12:44] LABS: Basophils % (auto) 0.6 % (0.0-2.0); Eosinophils % (auto) 2.4 % (0.0-7.0); Hematocrit 33.5 % (36.0-46.0); Hemoglobin 10.3 g/dL (12.2-16.2); Lymphocytes % (auto) 25.7 % (10.0-50.0); Mean Corpuscular Hemoglobin 24.6 pg (28.0-32.0); Mean Corpuscular Hgb Conc. 30.8 g/dL (32.0-36.0); Monocytes % (auto) 7.5 % (0.0-12.0); Neutrophils # (auto) 4.4 10 ^3/uL (1.6-8.6); Neutrophils % (auto) 63.8 % (37.0-80.0); Nucleated Red Blood Cells % 0.2 %; Red Cell Distribution Width 18.2 % (11.8-14.3); White Blood Cell 6.9 10^3/uL (4.4-10.8)
[2021-10-08 12:47] LABS: Potassium 3.8 mmol/L (3.5-5.1)
[2021-10-08 12:53] LABS: Albumin 3.6 g/dL (3.4-5.0); BUN/Creatinine Ratio 24.8; Bilirubin, Total 0.2 mg/dL (0.2-1.0); CRP High Sensitivity 0.52 mg/dL (< 0.3); Total Protein 7.6 g/dL (6.4-8.2)
== END | disposition home or self-care (01) ==
LOC: LAB 06:57
PROVIDERS: ATTEND Internal Medicine
DX: E11.9 Type 2 diabetes mellitus without complications (principal); M86.9 Osteomyelitis, unspecified; E55.9 Vitamin D deficiency, unspecified
CPT/HCPCS: 36415; 80053; 82306; 83036; 85025; 85652; 86141

== ENCOUNTER → 2021-10-23 | Day surgery (SDC) | payer OTHER ==
[2021-10-18 11:12] LABS: Urine Bacteria NONE SEEN /hpf (None Seen); Urine Blood Negative /uL (Negative); Urine Specific Gravity 1.007 (1.001-1.035); Urine WBC 1 /hpf (0 - 5)
[2021-10-18 13:12] LABS: Potassium 4.4 mmol/L (3.5-5.1)
[2021-10-18 13:18] LABS: Albumin 3.6 g/dL (3.4-5.0); BUN/Creatinine Ratio 22.2; Bilirubin, Total 0.2 mg/dL (0.2-1.0); Calcium 9.3 mg/dL (8.5-10.1); Total Protein 7.9 g/dL (6.4-8.2)
[2021-10-18 13:47] LABS: Basophils # (auto) 0 10 ^3/uL (0-0.2); Basophils % (auto) 0.5 % (0.0-2.0); Eosinophils # (auto) 0.1 10 ^3/uL (0-0.8); Hemoglobin 11.4 g/dL (12.2-16.2); Neutrophils # (auto) 5.9 10 ^3/uL (1.6-8.6)
[2021-10-18 13:49] LABS: Eosinophils % (auto) 1.6 % (0.0-7.0); Hematocrit 36.1 % (36.0-46.0); Lymphocytes # (auto) 1.5 10 ^3/uL (0.4-5.4); Lymphocytes % (auto) 18.5 % (10.0-50.0); Mean Corpuscular Hgb Conc. 31.5 g/dL (32.0-36.0); Mean Corpuscular Volume 79.4 fL (80.0-100.0); Monocytes # (auto) 0.5 10 ^3/uL (0-1.3); Monocytes % (auto) 6.3 % (0.0-12.0); Neutrophils % (auto) 73.1 % (37.0-80.0); Nucleated Red Blood Cells % 0.1 %; Red Blood Cells 4.55 10^6/uL (4.0-5.20); Red Cell Distribution Width 18.8 % (11.8-14.3)
[~2021-10-23] VITALS: Ht 175.3 cm; Wt 95.3 kg
[~2021-10-23] MED LIST changes: +BUPIVACAINE 0.5% P/F INJ 10 ML VIAL ONE; +DAKINS HALF STR 0.25% (NaHypochlorite) 473 ML TOPICAL SOL TOP ONE; +DexAMETHasone SOD PHOS 10MG/1ML VIAL INJ ONE; -FERR-20 PO; +FINE20TA PO; +HYDROmorphone HCL 2 MG/ML VL IV PRN; +LEVEMIR SC; +LIDOCAINE 1% (LOCAL ANESTH.) PF 5ml SDV ONE; +LIDOCAINE 1% HCL (LOCAL ANESTH.) INJ 20ML MDV ONE; +METOCLOPRAMIDE HCL 5MG/ml INJ 2ml VIAL IV PRN; +MIDAZOLAM HCL 2MG/2ML 2ml VIAL (1mg/ml) ONE; +ONDANSETRON HCL 4 MG/2 ML VIAL IV PRN; +ONDANSETRON HCL 4 MG/2 ML VIAL ONE; +PROPOFOL 10 MG/ML 20 ML IV ONE; +ceFAZolin 1GM/50ML 100 ML IV ONE; +fentaNYL CITRATE 100 MCG/2 ML VL ONE
[2021-10-23 13:53] VITALS: BP 143/81
== END | disposition home or self-care (01) ==
LOC: SUR 08:47
PROVIDERS: ATTEND Podiatrist
DX: E11.621 Type 2 diabetes mellitus with foot ulcer (principal); M86.8X7 Other osteomyelitis, ankle and foot; L97.529 Non-pressure chronic ulcer of other part of left foot with unspecified severity; M79.89 Other specified soft tissue disorders; I10 Essential (primary) hypertension; E78.5 Hyperlipidemia, unspecified; F41.9 Anxiety disorder, unspecified; Z98.890 Other specified postprocedural states; Z79.899 Other long term (current) drug therapy; Z88.2 Allergy status to sulfonamides; Z88.1 Allergy status to other antibiotic agents; Z20.822 Contact with and (suspected) exposure to COVID-19; Z98.51 Tubal ligation status; Z98.891 History of uterine scar from previous surgery; Z82.49 Family history of ischemic heart disease and other diseases of the circulatory system; Z83.3 Family history of diabetes mellitus; Z83.438 Family history of other disorder of lipoprotein metabolism and other lipidemia; Z84.1 Family history of disorders of kidney and ureter
CPT/HCPCS: 28805; 36415; 73620; 76000; 80053; 81001; 81025; 82962; 84702; 85025; 87070; 87075; 87205; 88305; 88311; J0690; J1100; J2001; J2250; J2405; J2704; J3010; J3490; U0003

== ENCOUNTER 2022-07-23 18:21 | Inpatient (IN) | payer OTHER ==
[~2022-07-23] VITALS: Ht 175.3 cm; Wt 110.5 kg
[~2022-07-23 18:21] MED LIST changes: -BUPIVACAINE 0.5% P/F INJ 10 ML VIAL ONE; -DAKINS HALF STR 0.25% (NaHypochlorite) 473 ML TOPICAL SOL TOP ONE; -DexAMETHasone SOD PHOS 10MG/1ML VIAL INJ ONE; -HYDROmorphone HCL 2 MG/ML VL IV PRN; -LIDOCAINE 1% (LOCAL ANESTH.) PF 5ml SDV ONE; -LIDOCAINE 1% HCL (LOCAL ANESTH.) INJ 20ML MDV ONE; -METOCLOPRAMIDE HCL 5MG/ml INJ 2ml VIAL IV PRN; -MIDAZOLAM HCL 2MG/2ML 2ml VIAL (1mg/ml) ONE; -ONDANSETRON HCL 4 MG/2 ML VIAL IV PRN; -ONDANSETRON HCL 4 MG/2 ML VIAL ONE; -PROPOFOL 10 MG/ML 20 ML IV ONE; -ceFAZolin 1GM/50ML 100 ML IV ONE; -fentaNYL CITRATE 100 MCG/2 ML VL ONE
[2022-07-23 19:43] LABS: Basophils # (auto) 0 10 ^3/uL (0-0.2); Basophils % (auto) 0.3 % (0.0-2.0); Eosinophils # (auto) 0.1 10 ^3/uL (0-0.8); Hemoglobin 8.8 g/dL (12.2-16.2); Monocytes # (auto) 0.7 10 ^3/uL (0-1.3)
[2022-07-23 19:46] LABS: Eosinophils % (auto) 0.9 % (0.0-7.0); Hematocrit 29.4 % (36.0-46.0); Lymphocytes % (auto) 6.5 % (10.0-50.0); Mean Corpuscular Hemoglobin 23.1 pg (28.0-32.0); Mean Corpuscular Hgb Conc. 29.9 g/dL (32.0-36.0); Mean Corpuscular Volume 77.2 fL (80.0-100.0); Monocytes % (auto) 4.2 % (0.0-12.0); Neutrophils # (auto) 13.8 10 ^3/uL (1.6-8.6); Neutrophils % (auto) 88.1 % (37.0-80.0); Red Cell Distribution Width 20.1 % (11.8-14.3); White Blood Cell 15.7 10^3/uL (4.4-10.8)
[2022-07-23 19:59] LABS: INR 1.01 (0.9-1.15); Partial Thromboplastin Time 32.3 sec (24.6-33.4)
[2022-07-23 20:03] LABS: Albumin 2.8 g/dL (3.4-5.0); Anion Gap 19 (5-15); BUN/Creatinine Ratio 17.9; Blood Urea Nitrogen 15 mg/dL (7-18); Calcium 9.8 mg/dL (8.5-10.1); Carbon Dioxide 16 mmol/L (21-32); Chloride 101 mmol/L (98-107); GFR African American 93 mL/min; GFR Non-African American 77 mL/min; Glucose 161 mg/dL (74-106); Potassium 3.7 mmol/L (3.5-5.1); Sodium 136 mmol/L (136-145)
[2022-07-23 20:12] LABS: Alanine Aminotransferase 12 U/L (13-56); Alkaline Phosphatase 92 U/L (45-117); Aspartate Aminotransferase 6 U/L (15-37); Bilirubin, Total 0.5 mg/dL (0.2-1.0); Total Protein 8.2 g/dL (6.4-8.2)
[2022-07-23 20:53] LABS: CRP High Sensitivity > 19.0 mg/dL (< 0.3)
[2022-07-23] MEDS ORDERED: CEFTRIAXONE SODIUM 2 GM in D5W 5% 50 ML IV ONE (21:00)
[2022-07-24] MEDS ORDERED: DEXTROSE (50%) 50ML SYRG IV PRN ×2 (01:15→15:15)
[2022-07-24] MEDS ORDERED: TEMAZEPAM 15 MG CAP PO PRN (01:15)
[2022-07-24] MEDS ORDERED: CLINDAMYCIN 600MG IV 50 ML IV ONE (01:15)
[2022-07-24] MEDS ORDERED: ACETAMINOPHEN 325 MG TAB PO PRN (01:15)
[2022-07-24] MEDS ORDERED: CLINDAMYCIN 600MG IV 50 ML IV SCH (06:00)
[2022-07-24] MEDS: ACCU-CHEK COMFORT CURVE STRIP VI SCH ×5 (07:00→22:24)
[2022-07-24] MEDS: InsuLIN REG 1unit/0.01ml Soln (100units/ml) SC SCH ×2 (07:32→12:45)
[2022-07-24] MEDS: ENOXAPARIN SOD 40 MG/0.4 ML SYRINGE SC SCH (08:54)
[2022-07-24] MEDS: LISINOPRIL 10 MG TAB PO SCH (08:54)
[2022-07-24] MEDS: GABAPENTIN 300 MG CAP PO SCH ×2 (08:54→22:35)
[2022-07-24 09:00] VITALS: BP 111/56
[2022-07-24] MEDS ORDERED: cefTRIAXone 1GM/50ML D5W 50 ML IV SCH (09:00)
[2022-07-24] MEDS ORDERED: PANTOPRAZOLE 40 MG TAB PO SCH (10:00)
[2022-07-24] MEDS ORDERED: GADOTERATE MEG 10 MMOL/20ml INJ (0.5MMOL/ml) IV ONE (10:55)
[2022-07-24 11:18] LABS: Eosinophils # (auto) 0.2 10 ^3/uL (0-0.8)
[2022-07-24 11:19] LABS: Basophils # (auto) 0 10 ^3/uL (0-0.2); Basophils % (auto) 0.3 % (0.0-2.0); Eosinophils % (auto) 1.5 % (0.0-7.0); Hematocrit 28.3 % (36.0-46.0); Hemoglobin 8.4 g/dL (12.2-16.2); Lymphocytes # (auto) 1.3 10 ^3/uL (0.4-5.4); Lymphocytes % (auto) 9.8 % (10.0-50.0); Mean Corpuscular Hgb Conc. 29.8 g/dL (32.0-36.0); Mean Corpuscular Volume 77.2 fL (80.0-100.0); Monocytes # (auto) 0.6 10 ^3/uL (0-1.3); Monocytes % (auto) 4.4 % (0.0-12.0); Neutrophils # (auto) 10.8 10 ^3/uL (1.6-8.6); Red Blood Cells 3.67 10^6/uL (4.0-5.20); White Blood Cell 12.9 10^3/uL (4.4-10.8)
[2022-07-24 11:20] LABS: Red Cell Distribution Width 20.3 % (11.8-14.3)
[2022-07-24 11:33] LABS: Urine Blood Negative /uL (Negative); Urine Specific Gravity 1.019 (1.001-1.035)
[2022-07-24 12:01] LABS: Albumin 2.5 g/dL (3.4-5.0); BUN/Creatinine Ratio 24.7; Bilirubin, Total 0.5 mg/dL (0.2-1.0); Calcium 9.2 mg/dL (8.5-10.1); Magnesium 2.4 mg/dL (1.6-2.6); Total Protein 6.6 g/dL (6.4-8.2)
[2022-07-24] MEDS: LACTULOSE 20Gm/30ML SOLN PO ONE ×2 (12:45→14:04)
[2022-07-24] MEDS ORDERED: SODIUM CHLORIDE 0.9% 1,000 ML IV SCH (12:45)
[2022-07-24 13:00] VITALS: BP 116/66
[2022-07-24 13:34] LABS: % Iron Saturation 6.5 % (15-50)
[2022-07-24] MEDS: CEFEPIME 2 GM in SODIUM CHL 0.9% 50 ML IV SCH ×2 (14:03→22:40)
[2022-07-24 14:17] LABS: Ferritin 81.5 ng/mL (10-322)
[2022-07-24] MEDS ORDERED: CYANOCOBALAMIN (B-12) 1000 MCG/1 ML VIAL IM ONE (15:30)
[2022-07-24 16:50] LABS: BUN/Creatinine Ratio 17.8; Calcium 9.2 mg/dL (8.5-10.1); Potassium 4.2 mmol/L (3.5-5.1)
[2022-07-24 17:00] VITALS: BP 116/65
[2022-07-24] MEDS: SODIUM CHLORIDE 0.9% 1,000 ML IV SCH (17:41)
[2022-07-24] MEDS: ERGOCALCIFEROL 50,000 UNIT(1.25MG) CAP PO SCH (17:48)
[2022-07-24] MEDS ORDERED: SODIUM FERR GLUC 62.5MG/5ML 125 MG in SODIUM CHL 0.9% 100 ML IV ONE (18:30)
[2022-07-24] MEDS ORDERED: IRON SUCROSE COMPLEX 200 MG in SODIUM CHL 0.9% 100 ML IV ONE (19:30)
[2022-07-24] MEDS: LINEZOLID 600MG/300ML 300 ML IV SCH (21:49)
[2022-07-24] MEDS ORDERED: INSULIN LANTUS (GLARGINE) 1 /0.01ml (100units/ml) SC SCH (22:00)
[2022-07-24 22:14] LABS: Calcium 8.6 mg/dL (8.5-10.1); Potassium 4.4 mmol/L (3.5-5.1)
[2022-07-24 22:20] VITALS: BP 122/63
[2022-07-24] MEDS: InsuLIN R (HUMAN) 100 UNITS in SODIUM CHL 0.9% 99 ML IV SCH (22:25)
[2022-07-24 22:30] VITALS: BP 110/59
[2022-07-24] MEDS: ATORVASTATIN 20 MG TAB PO SCH (22:35)
[2022-07-24 23:00] VITALS: BP 113/67
[2022-07-25] VITALS (9 sets, daily range): BP systolic 107–135; BP diastolic 55–75
[2022-07-25] MEDS: ACCU-CHEK COMFORT CURVE STRIP VI SCH ×18 (00:03→22:26)
[2022-07-25] MEDS: InsuLIN R (HUMAN) 100 UNITS in SODIUM CHL 0.9% 99 ML IV SCH (01:37)
[2022-07-25 03:20] LABS: Anion Gap 19 (5-15); BUN/Creatinine Ratio 15.8; Blood Urea Nitrogen 16 mg/dL (7-18); Calcium 8.5 mg/dL (8.5-10.1); Carbon Dioxide 11 mmol/L (21-32); Chloride 110 mmol/L (98-107); GFR African American 75 mL/min; GFR Non-African American 62 mL/min; Glucose 173 mg/dL (74-106); Potassium 4.1 mmol/L (3.5-5.1); Sodium 140 mmol/L (136-145)
[2022-07-25] MEDS: SODIUM CHLORIDE 0.9% 1,000 ML IV SCH (03:30)
[2022-07-25 05:33] LABS: Basophils # (auto) 0.1 10 ^3/uL (0-0.2); Basophils % (auto) 0.7 % (0.0-2.0); Eosinophils # (auto) 0.1 10 ^3/uL (0-0.8); Eosinophils % (auto) 1.2 % (0.0-7.0); Hematocrit 27.3 % (36.0-46.0); Lymphocytes # (auto) 1.2 10 ^3/uL (0.4-5.4); Lymphocytes % (auto) 10.9 % (10.0-50.0); Mean Corpuscular Hemoglobin 22.7 pg (28.0-32.0); Mean Corpuscular Hgb Conc. 29.3 g/dL (32.0-36.0); Mean Corpuscular Volume 77.5 fL (80.0-100.0); Monocytes # (auto) 0.8 10 ^3/uL (0-1.3); Monocytes % (auto) 6.8 % (0.0-12.0); Neutrophils # (auto) 9.2 10 ^3/uL (1.6-8.6); Neutrophils % (auto) 80.4 % (37.0-80.0); Nucleated Red Blood Cells % 0.1 %; Red Blood Cells 3.52 10^6/uL (4.0-5.20); Red Cell Distribution Width 20.5 % (11.8-14.3); White Blood Cell 11.5 10^3/uL (4.4-10.8)
[2022-07-25] MEDS: CEFEPIME 2 GM in SODIUM CHL 0.9% 50 ML IV SCH ×3 (05:34→21:59)
[2022-07-25 05:53] LABS: Albumin 2.4 g/dL (3.4-5.0); Calcium 8.7 mg/dL (8.5-10.1); Potassium 3.8 mmol/L (3.5-5.1)
[2022-07-25 05:55] LABS: Bilirubin, Total 0.4 mg/dL (0.2-1.0); Total Protein 7.3 g/dL (6.4-8.2)
[2022-07-25] MEDS: SODIUM BICARB 50ML SYR 100 ML in SODIUM CHLORIDE 0.9% 1,000 ML IV SCH ×3 (07:30→22:00)
[2022-07-25 08:36] LABS: Folate (Folic Acid) 21.45 ng/mL (5.38-24)
[2022-07-25 09:30] LABS: BUN/Creatinine Ratio 14.2; Calcium 9.1 mg/dL (8.5-10.1); Potassium 3.9 mmol/L (3.5-5.1)
[2022-07-25] MEDS: ENOXAPARIN SOD 40 MG/0.4 ML SYRINGE SC SCH (10:00)
[2022-07-25] MEDS: GABAPENTIN 300 MG CAP PO SCH ×2 (10:00→22:00)
[2022-07-25] MEDS: LISINOPRIL 10 MG TAB PO SCH (10:00)
[2022-07-25] MEDS: LINEZOLID 600MG/300ML 300 ML IV SCH ×2 (10:00→22:15)
[2022-07-25] MEDS: CYANOCOBALAMIN (B-12) 1000 MCG/1 ML VIAL IM SCH (10:00)
[2022-07-25] MEDS ORDERED: SODIUM FERR GLUC 62.5MG/5ML 125 MG in SODIUM CHL 0.9% 100 ML IV SCH (12:00)
[2022-07-25] MEDS ORDERED: ceFAZolin 1GM/50ML 100 ML IV ONE (12:01)
[2022-07-25] MEDS ORDERED: BUPIVACAINE 0.5% P/F INJ 10 ML VIAL ONE (12:10)
[2022-07-25] MEDS ORDERED: MIDAZOLAM HCL 2MG/2ML 2ml VIAL (1mg/ml) ONE (12:46)
[2022-07-25] MEDS ORDERED: fentaNYL CITRATE 100 MCG/2 ML VL ONE (12:46)
[2022-07-25] MEDS ORDERED: ONDANSETRON HCL 4 MG/2 ML VIAL ONE (12:51)
[2022-07-25] MEDS ORDERED: LIDOCAINE 2% (LOCAL ANESTH.) PF 5ml SDV ONE (12:51)
[2022-07-25] MEDS ORDERED: PROPOFOL 10 MG/ML 20 ML IV ONE (12:55)
[2022-07-25] MEDS: IRON SUCROSE COMPLEX 200 MG in SODIUM CHL 0.9% 100 ML IV SCH (13:00)
[2022-07-25] MEDS ORDERED: PHENYLEPHRINE HCL 10 MG/ML VL IV ONE (13:53)
[2022-07-25] MEDS ORDERED: SUCCINYLCHOLINE CHLORIDE 20 MG/ML 10ML VIAL IV ONE (13:53)
[2022-07-25] MEDS ORDERED: MORPHINE SULFATE INJ 2 MG/ml SYRG IV PRN (15:30)
[2022-07-25] MEDS ORDERED: ONDANSETRON HCL 4 MG/2 ML VIAL IV PRN (15:30)
[2022-07-25] MEDS: ONDANSETRON HCL 4 MG/2 ML VIAL IV PRN (16:40)
[2022-07-25 16:56] LABS: BUN/Creatinine Ratio 14.8; Calcium 8.9 mg/dL (8.5-10.1); Magnesium 2.4 mg/dL (1.6-2.6); Phosphorus 2.9 mg/dL (2.5-4.90); Potassium 4.1 mmol/L (3.5-5.1)
[2022-07-25] MEDS: HYDROcodone-ACET 5/325MG TAB PO PRN (19:51)
[2022-07-25 20:07] LABS: Calcium 7.8 mg/dL (8.5-10.1); Potassium 4.1 mmol/L (3.5-5.1)
[2022-07-25 20:11] LABS: BUN/Creatinine Ratio 14.3; Bilirubin, Total 0.6 mg/dL (0.2-1.0); Total Protein 6.4 g/dL (6.4-8.2)
[2022-07-25] MEDS: ATORVASTATIN 20 MG TAB PO SCH (22:00)
[2022-07-26] VITALS (20 sets, daily range): BP systolic 110–151; BP diastolic 57–75
[2022-07-26] MEDS: ACCU-CHEK COMFORT CURVE STRIP VI SCH ×14 (01:48→19:30)
[2022-07-26] MEDS: HYDROcodone-ACET 5/325MG TAB PO PRN ×4 (03:06→19:50)
[2022-07-26 05:36] LABS: Basophils # (auto) 0 10 ^3/uL (0-0.2); Hemoglobin 7.8 g/dL (12.2-16.2); Lymphocytes # (auto) 0.8 10 ^3/uL (0.4-5.4)
[2022-07-26 05:40] LABS: Basophils % (auto) 0.3 % (0.0-2.0); Eosinophils # (auto) 0 10 ^3/uL (0-0.8); Eosinophils % (auto) 0.3 % (0.0-7.0); Hematocrit 25.4 % (36.0-46.0); Lymphocytes % (auto) 6.7 % (10.0-50.0); Mean Corpuscular Hemoglobin 24.4 pg (28.0-32.0); Mean Corpuscular Hgb Conc. 30.7 g/dL (32.0-36.0); Mean Corpuscular Volume 79.4 fL (80.0-100.0); Monocytes # (auto) 0.9 10 ^3/uL (0-1.3); Monocytes % (auto) 7.8 % (0.0-12.0); Neutrophils # (auto) 9.9 10 ^3/uL (1.6-8.6); Neutrophils % (auto) 84.9 % (37.0-80.0); Nucleated Red Blood Cells % 0.2 %; Red Blood Cells 3.19 10^6/uL (4.0-5.20); Red Cell Distribution Width 19.5 % (11.8-14.3); White Blood Cell 11.7 10^3/uL (4.4-10.8)
[2022-07-26 05:59] LABS: Potassium 3.7 mmol/L (3.5-5.1)
[2022-07-26 06:05] LABS: BUN/Creatinine Ratio 11.8; Calcium 8.1 mg/dL (8.5-10.1); Magnesium 2.4 mg/dL (1.6-2.6); Phosphorus 2.4 mg/dL (2.5-4.90)
[2022-07-26] MEDS: CEFEPIME 2 GM in SODIUM CHL 0.9% 50 ML IV SCH ×2 (07:42→15:01)
[2022-07-26] MEDS: SODIUM BICARB 50ML SYR 100 ML in SODIUM CHLORIDE 0.9% 1,000 ML IV SCH ×2 (08:00→15:02)
[2022-07-26] MEDS: LISINOPRIL 10 MG TAB PO SCH (10:00)
[2022-07-26] MEDS: GABAPENTIN 300 MG CAP PO SCH ×2 (10:13→22:25)
[2022-07-26] MEDS: LINEZOLID 600MG/300ML 300 ML IV SCH ×2 (10:13→22:25)
[2022-07-26] MEDS: ENOXAPARIN SOD 40 MG/0.4 ML SYRINGE SC SCH (10:13)
[2022-07-26] MEDS: CYANOCOBALAMIN (B-12) 1000 MCG/1 ML VIAL IM SCH (15:25)
[2022-07-26] MEDS: IRON SUCROSE COMPLEX 200 MG in SODIUM CHL 0.9% 100 ML IV SCH (15:26)
[2022-07-26] MEDS: InsuLIN R (HUMAN) 100 UNITS in SODIUM CHL 0.9% 99 ML IV SCH (16:39)
[2022-07-26 17:52] LABS: Albumin 1.9 g/dL (3.4-5.0); BUN/Creatinine Ratio 9.9; Calcium 7.8 mg/dL (8.5-10.1); Potassium 3.3 mmol/L (3.5-5.1)
[2022-07-26 17:54] LABS: Bilirubin, Total 0.4 mg/dL (0.2-1.0); Total Protein 6.2 g/dL (6.4-8.2)
[2022-07-26] MEDS ORDERED: POTASSIUM CHLORIDE 8 MEQ TAB PO ONE (18:15)
[2022-07-26 20:54] LABS: BUN/Creatinine Ratio 9.2; Calcium 8.3 mg/dL (8.5-10.1); Potassium 3.6 mmol/L (3.5-5.1)
[2022-07-26] MEDS ORDERED: INSULIN LANTUS (GLARGINE) 1 /0.01ml (100units/ml) SC SCH (22:00)
[2022-07-26] MEDS: ATORVASTATIN 20 MG TAB PO SCH (22:25)
[2022-07-26] MEDS: INSULIN LANTUS (GLARGINE) 1 /0.01ml (100units/ml) SC SCH (22:31)
[2022-07-27] VITALS (20 sets, daily range): BP systolic 115–157; BP diastolic 56–90
[2022-07-27] MEDS ORDERED: ACCU-CHEK COMFORT CURVE STRIP VI SCH ×2
[2022-07-27] MEDS ORDERED: InsuLIN REG 1unit/0.01ml Soln (100units/ml) SC SCH ×2
[2022-07-27] MEDS: CEFEPIME 2 GM in SODIUM CHL 0.9% 50 ML IV SCH ×4 (00:52→22:45)
[2022-07-27] MEDS: InsuLIN REG 1unit/0.01ml Soln (100units/ml) SC SCH ×10 (02:00→20:00)
[2022-07-27] MEDS: ACCU-CHEK COMFORT CURVE STRIP VI SCH ×10 (02:00→20:00)
[2022-07-27] MEDS: SODIUM BICARBONATE 50ML VIAL 100 ML in SODIUM CHL 0.9% 1,000 ML IV SCH ×2 (04:03→13:46)
[2022-07-27 05:15] LABS: Basophils # (auto) 0 10 ^3/uL (0-0.2); Basophils % (auto) 0.2 % (0.0-2.0); Eosinophils # (auto) 0.1 10 ^3/uL (0-0.8); Eosinophils % (auto) 0.9 % (0.0-7.0); Hematocrit 28.2 % (36.0-46.0); Hemoglobin 8.4 g/dL (12.2-16.2); Lymphocytes # (auto) 0.9 10 ^3/uL (0.4-5.4); Lymphocytes % (auto) 10.9 % (10.0-50.0); Mean Corpuscular Hemoglobin 24.3 pg (28.0-32.0); Mean Corpuscular Hgb Conc. 29.9 g/dL (32.0-36.0); Monocytes # (auto) 0.7 10 ^3/uL (0-1.3); Monocytes % (auto) 8.2 % (0.0-12.0); Neutrophils # (auto) 6.6 10 ^3/uL (1.6-8.6); Neutrophils % (auto) 79.8 % (37.0-80.0); Nucleated Red Blood Cells % 0.1 %; Red Blood Cells 3.48 10^6/uL (4.0-5.20); White Blood Cell 8.2 10^3/uL (4.4-10.8)
[2022-07-27 05:16] LABS: Red Cell Distribution Width 20.1 % (11.8-14.3)
[2022-07-27 05:28] LABS: Potassium 3.7 mmol/L (3.5-5.1)
[2022-07-27 05:34] LABS: BUN/Creatinine Ratio 9.2
[2022-07-27] MEDS: HYDROcodone-ACET 5/325MG TAB PO PRN ×4 (07:56→22:44)
[2022-07-27] MEDS: GABAPENTIN 300 MG CAP PO SCH ×2 (08:36→22:44)
[2022-07-27] MEDS: LINEZOLID 600MG/300ML 300 ML IV SCH ×3 (08:36→22:45)
[2022-07-27] MEDS: ENOXAPARIN SOD 40 MG/0.4 ML SYRINGE SC SCH (08:36)
[2022-07-27] MEDS: LISINOPRIL 10 MG TAB PO SCH (08:46)
[2022-07-27] MEDS: CYANOCOBALAMIN (B-12) 1000 MCG/1 ML VIAL IM SCH (10:12)
[2022-07-27] MEDS: IRON SUCROSE COMPLEX 200 MG in SODIUM CHL 0.9% 100 ML IV SCH (13:37)
[2022-07-27] MEDS ORDERED: DEXTROSE (50%) 50ML SYRG IV PRN (14:45)
[2022-07-27] MEDS: SODIUM BICARB 50ML SYR 100 ML in SOD CHL 0.45% 1,000 ML IV SCH (15:49)
[2022-07-27] MEDS: INSULIN LANTUS (GLARGINE) 1 /0.01ml (100units/ml) SC SCH (22:00)
[2022-07-27] MEDS: ATORVASTATIN 20 MG TAB PO SCH (22:44)
[2022-07-28] VITALS (24 sets, daily range): BP systolic 99–153; BP diastolic 57–89
[2022-07-28] MEDS ORDERED: guaiFENesin-DM 100/10mg/5ml SYR PO PRN (01:00)
[2022-07-28] MEDS: InsuLIN REG 1unit/0.01ml Soln (100units/ml) SC SCH ×5 (04:00→22:51)
[2022-07-28] MEDS: ACCU-CHEK COMFORT CURVE STRIP VI SCH ×7 (04:00→22:00)
[2022-07-28] MEDS: HYDROcodone-ACET 5/325MG TAB PO PRN ×3 (04:55→19:58)
[2022-07-28 05:55] LABS: Basophils # (auto) 0 10 ^3/uL (0-0.2); Basophils % (auto) 0.3 % (0.0-2.0); Eosinophils # (auto) 0.1 10 ^3/uL (0-0.8); Lymphocytes # (auto) 0.9 10 ^3/uL (0.4-5.4); Mean Corpuscular Volume 78.9 fL (80.0-100.0)
[2022-07-28 06:02] LABS: Eosinophils % (auto) 1.4 % (0.0-7.0); Hematocrit 27.2 % (36.0-46.0); Hemoglobin 8.3 g/dL (12.2-16.2); Lymphocytes % (auto) 12.2 % (10.0-50.0); Mean Corpuscular Hemoglobin 24.2 pg (28.0-32.0); Mean Corpuscular Hgb Conc. 30.7 g/dL (32.0-36.0); Monocytes # (auto) 0.7 10 ^3/uL (0-1.3); Monocytes % (auto) 9.2 % (0.0-12.0); Neutrophils # (auto) 5.9 10 ^3/uL (1.6-8.6); Neutrophils % (auto) 76.9 % (37.0-80.0); Red Blood Cells 3.45 10^6/uL (4.0-5.20); White Blood Cell 7.7 10^3/uL (4.4-10.8)
[2022-07-28 06:13] LABS: Albumin 1.9 g/dL (3.4-5.0); BUN/Creatinine Ratio 10.5; Calcium 7.9 mg/dL (8.5-10.1); Potassium 3.6 mmol/L (3.5-5.1)
[2022-07-28 06:16] LABS: Bilirubin, Total 0.3 mg/dL (0.2-1.0); Total Protein 5.7 g/dL (6.4-8.2)
[2022-07-28 06:17] LABS: Red Cell Distribution Width 20.1 % (11.8-14.3)
[2022-07-28] MEDS: SODIUM BICARB 50ML SYR 100 ML in SOD CHL 0.45% 1,000 ML IV SCH ×3 (07:57→19:15)
[2022-07-28] MEDS: CEFEPIME 2 GM in SODIUM CHL 0.9% 50 ML IV SCH ×3 (08:24→22:47)
[2022-07-28] MEDS: ONDANSETRON HCL 4 MG/2 ML VIAL IV PRN (08:25)
[2022-07-28] MEDS: ENOXAPARIN SOD 40 MG/0.4 ML SYRINGE SC SCH (09:51)
[2022-07-28] MEDS: LISINOPRIL 10 MG TAB PO SCH (09:51)
[2022-07-28] MEDS: GABAPENTIN 300 MG CAP PO SCH ×2 (09:51→22:43)
[2022-07-28] MEDS: CYANOCOBALAMIN (B-12) 1000 MCG/1 ML VIAL IM SCH (09:53)
[2022-07-28] MEDS: DAKINS HALF STR 0.25% (NaHypochlorite) 473 ML TOPICAL SOL TOP SCH (10:00)
[2022-07-28] MEDS: LINEZOLID 600MG/300ML 300 ML IV SCH ×2 (11:00→22:42)
[2022-07-28] MEDS ORDERED: ZINC SULFATE 220mg CAP or TAB PO ONE (12:00)
[2022-07-28] MEDS ORDERED: ASCORBIC ACID 500 MG TAB PO ONE (12:00)
[2022-07-28] MEDS ORDERED: DEXTROSE (50%) 50ML SYRG IV PRN ×2 (12:00→12:45)
[2022-07-28] MEDS ORDERED: InsuLIN REG 1unit/0.01ml Soln (100units/ml) SC ONE ×2 (13:00→13:45)
[2022-07-28] MEDS: IRON SUCROSE COMPLEX 200 MG in SODIUM CHL 0.9% 100 ML IV SCH (13:00)
[2022-07-28] MEDS ORDERED: LIDOCAINE 1% (LOCAL ANESTH.) PF 5ml SDV ID ONE (15:15)
[2022-07-28] MEDS ORDERED: ACCU-CHEK COMFORT CURVE STRIP VI SCH (17:00)
[2022-07-28] MEDS ORDERED: InsuLIN REG 1unit/0.01ml Soln (100units/ml) SC SCH ×2 (17:00→22:00)
[2022-07-28] MEDS: SODIUM CHLOR 0.9% PF (SALINE LOCK) 10ML VIAL/SYR IV SCH (22:00)
[2022-07-28] MEDS: ATORVASTATIN 20 MG TAB PO SCH (22:43)
[2022-07-28] MEDS: INSULIN LANTUS (GLARGINE) 1 /0.01ml (100units/ml) SC SCH (22:51)
[2022-07-29] VITALS (16 sets, daily range): BP systolic 100–162; BP diastolic 63–79
[2022-07-29 05:12] LABS: Basophils # (auto) 0 10 ^3/uL (0-0.2); Eosinophils # (auto) 0.1 10 ^3/uL (0-0.8); Lymphocytes # (auto) 1.1 10 ^3/uL (0.4-5.4); Lymphocytes % (auto) 15.9 % (10.0-50.0); Nucleated Red Blood Cells % 0.2 %
[2022-07-29 05:15] LABS: Basophils % (auto) 0.5 % (0.0-2.0); Eosinophils % (auto) 1.4 % (0.0-7.0); Hemoglobin 8.8 g/dL (12.2-16.2); Mean Corpuscular Hemoglobin 24.1 pg (28.0-32.0); Mean Corpuscular Hgb Conc. 30.4 g/dL (32.0-36.0); Mean Corpuscular Volume 79.2 fL (80.0-100.0); Monocytes # (auto) 0.5 10 ^3/uL (0-1.3); Monocytes % (auto) 7.8 % (0.0-12.0); Neutrophils # (auto) 5.2 10 ^3/uL (1.6-8.6); Neutrophils % (auto) 74.4 % (37.0-80.0); Red Blood Cells 3.66 10^6/uL (4.0-5.20)
[2022-07-29 05:17] LABS: Red Cell Distribution Width 20.6 % (11.8-14.3)
[2022-07-29 05:33] LABS: Calcium 8.3 mg/dL (8.5-10.1); Potassium 3.2 mmol/L (3.5-5.1)
[2022-07-29] MEDS: CEFEPIME 2 GM in SODIUM CHL 0.9% 50 ML IV SCH ×3 (06:00→21:41)
[2022-07-29] MEDS: DAKINS HALF STR 0.25% (NaHypochlorite) 473 ML TOPICAL SOL TOP SCH ×3 (06:22→21:25)
[2022-07-29] MEDS: InsuLIN REG 1unit/0.01ml Soln (100units/ml) SC SCH ×4 (07:00→21:31)
[2022-07-29] MEDS: ACCU-CHEK COMFORT CURVE STRIP VI SCH ×4 (07:00→21:26)
[2022-07-29] MEDS: SODIUM CHLOR 0.9% PF (SALINE LOCK) 10ML VIAL/SYR IV SCH ×2 (07:27→21:25)
[2022-07-29] MEDS: SODIUM BICARB 50ML SYR 100 ML in SOD CHL 0.45% 1,000 ML IV SCH (08:12)
[2022-07-29] MEDS: LINEZOLID 600MG/300ML 300 ML IV SCH ×2 (08:50→21:32)
[2022-07-29] MEDS: ZINC SULFATE 220mg CAP or TAB PO SCH (08:51)
[2022-07-29] MEDS: HYDROcodone-ACET 5/325MG TAB PO PRN ×2 (08:51→15:35)
[2022-07-29] MEDS: ENOXAPARIN SOD 40 MG/0.4 ML SYRINGE SC SCH (08:51)
[2022-07-29] MEDS: CYANOCOBALAMIN 500 MCG TAB PO SCH (08:51)
[2022-07-29] MEDS: GABAPENTIN 300 MG CAP PO SCH ×2 (08:51→21:31)
[2022-07-29] MEDS: ASCORBIC ACID 500 MG TAB PO SCH (08:52)
[2022-07-29] MEDS: LISINOPRIL 10 MG TAB PO SCH (08:52)
[2022-07-29] MEDS ORDERED: POTASSIUM CHL 20 Meq TABLET PO ONE (12:15)
[2022-07-29] MEDS: IRON SUCROSE COMPLEX 200 MG in SODIUM CHL 0.9% 100 ML IV SCH (12:32)
[2022-07-29] MEDS: INSULIN LANTUS (GLARGINE) 1 /0.01ml (100units/ml) SC SCH (21:30)
[2022-07-29] MEDS: ATORVASTATIN 20 MG TAB PO SCH (21:31)
[2022-07-30] MEDS: HYDROcodone-ACET 5/325MG TAB PO PRN ×2 (01:02→17:27)
[2022-07-30 05:00] VITALS: BP_SYST 63
[2022-07-30 05:21] LABS: Basophils # (auto) 0 10 ^3/uL (0-0.2); Basophils % (auto) 0.4 % (0.0-2.0); Eosinophils # (auto) 0.2 10 ^3/uL (0-0.8); Eosinophils % (auto) 3.9 % (0.0-7.0); Hematocrit 28.3 % (36.0-46.0); Hemoglobin 8.9 g/dL (12.2-16.2); Lymphocytes # (auto) 1.3 10 ^3/uL (0.4-5.4); Lymphocytes % (auto) 20.7 % (10.0-50.0); Mean Corpuscular Hgb Conc. 31.6 g/dL (32.0-36.0); Mean Corpuscular Volume 79.2 fL (80.0-100.0); Monocytes # (auto) 0.5 10 ^3/uL (0-1.3); Monocytes % (auto) 7.9 % (0.0-12.0); Neutrophils # (auto) 4.3 10 ^3/uL (1.6-8.6); Neutrophils % (auto) 67.1 % (37.0-80.0); Nucleated Red Blood Cells % 0.2 %; Red Blood Cells 3.57 10^6/uL (4.0-5.20); White Blood Cell 6.4 10^3/uL (4.4-10.8)
[2022-07-30 05:22] LABS: Red Cell Distribution Width 20.4 % (11.8-14.3)
[2022-07-30 05:42] LABS: Potassium 3.6 mmol/L (3.5-5.1)
[2022-07-30 05:46] LABS: BUN/Creatinine Ratio 12.7; Calcium 8.4 mg/dL (8.5-10.1); Magnesium 2.4 mg/dL (1.6-2.6)
[2022-07-30] MEDS: ACCU-CHEK COMFORT CURVE STRIP VI SCH ×4 (06:13→22:24)
[2022-07-30] MEDS: InsuLIN REG 1unit/0.01ml Soln (100units/ml) SC SCH ×4 (06:15→22:29)
[2022-07-30] MEDS: CEFEPIME 2 GM in SODIUM CHL 0.9% 50 ML IV SCH ×3 (06:16→22:46)
[2022-07-30 08:00] VITALS: BP 130/77
[2022-07-30] MEDS: LISINOPRIL 10 MG TAB PO SCH (09:30)
[2022-07-30] MEDS: CYANOCOBALAMIN 500 MCG TAB PO SCH (09:30)
[2022-07-30] MEDS: ASCORBIC ACID 500 MG TAB PO SCH (09:30)
[2022-07-30] MEDS: LINEZOLID 600MG/300ML 300 ML IV SCH (09:30)
[2022-07-30] MEDS: ZINC SULFATE 220mg CAP or TAB PO SCH (09:30)
[2022-07-30] MEDS: GABAPENTIN 300 MG CAP PO SCH ×2 (09:38→22:29)
[2022-07-30] MEDS: ENOXAPARIN SOD 40 MG/0.4 ML SYRINGE SC SCH (10:00)
[2022-07-30] MEDS ORDERED: DAPTOmycin 500 MG in SODIUM CHL 0.9% 50 ML IV SCH (11:39)
[2022-07-30 12:00] VITALS: BP 133/97
[2022-07-30] MEDS: IRON SUCROSE COMPLEX 200 MG in SODIUM CHL 0.9% 100 ML IV SCH (13:00)
[2022-07-30 16:00] VITALS: BP 137/79
[2022-07-30] MEDS: SODIUM CHLOR 0.9% PF (SALINE LOCK) 10ML VIAL/SYR IV SCH ×2 (16:07→22:30)
[2022-07-30] MEDS: DAKINS HALF STR 0.25% (NaHypochlorite) 473 ML TOPICAL SOL TOP SCH ×2 (16:07→22:24)
[2022-07-30] MEDS: DAPTOmycin 500 MG in SODIUM CHL 0.9% 50 ML IV SCH (16:20)
[2022-07-30 22:00] VITALS: BP 114/74
[2022-07-30] MEDS: ATORVASTATIN 20 MG TAB PO SCH (22:30)
[2022-07-30] MEDS: INSULIN LANTUS (GLARGINE) 1 /0.01ml (100units/ml) SC SCH (22:34)
[2022-07-31 05:00] VITALS: BP 127/72
[2022-07-31 05:56] LABS: Basophils # (auto) 0 10 ^3/uL (0-0.2); Basophils % (auto) 0.2 % (0.0-2.0); Eosinophils # (auto) 0.3 10 ^3/uL (0-0.8); Eosinophils % (auto) 3.4 % (0.0-7.0); Hematocrit 31.5 % (36.0-46.0); Hemoglobin 9.6 g/dL (12.2-16.2); Lymphocytes # (auto) 1.2 10 ^3/uL (0.4-5.4); Lymphocytes % (auto) 14.3 % (10.0-50.0); Mean Corpuscular Hemoglobin 24.6 pg (28.0-32.0); Mean Corpuscular Hgb Conc. 30.6 g/dL (32.0-36.0); Mean Corpuscular Volume 80.6 fL (80.0-100.0); Monocytes # (auto) 0.8 10 ^3/uL (0-1.3); Monocytes % (auto) 8.6 % (0.0-12.0); Neutrophils # (auto) 6.4 10 ^3/uL (1.6-8.6); Neutrophils % (auto) 73.5 % (37.0-80.0); Nucleated Red Blood Cells % 0.2 %; Red Blood Cells 3.91 10^6/uL (4.0-5.20); White Blood Cell 8.7 10^3/uL (4.4-10.8)
[2022-07-31 05:58] LABS: Red Cell Distribution Width 20.6 % (11.8-14.3)
[2022-07-31 06:06] LABS: Calcium 8.2 mg/dL (8.5-10.1); Potassium 3.5 mmol/L (3.5-5.1)
[2022-07-31] MEDS: CEFEPIME 2 GM in SODIUM CHL 0.9% 50 ML IV SCH ×3 (06:27→21:35)
[2022-07-31] MEDS: ACCU-CHEK COMFORT CURVE STRIP VI SCH ×4 (06:34→21:30)
[2022-07-31] MEDS: InsuLIN REG 1unit/0.01ml Soln (100units/ml) SC SCH ×4 (06:48→21:33)
[2022-07-31 09:00] VITALS: BP 110/59
[2022-07-31] MEDS: ZINC SULFATE 220mg CAP or TAB PO SCH (09:05)
[2022-07-31] MEDS: ENOXAPARIN SOD 40 MG/0.4 ML SYRINGE SC SCH (09:05)
[2022-07-31] MEDS: ASCORBIC ACID 500 MG TAB PO SCH (09:05)
[2022-07-31] MEDS: CYANOCOBALAMIN 500 MCG TAB PO SCH (09:05)
[2022-07-31] MEDS: GABAPENTIN 300 MG CAP PO SCH ×2 (09:05→21:34)
[2022-07-31] MEDS: LISINOPRIL 10 MG TAB PO SCH (09:06)
[2022-07-31] MEDS: SODIUM CHLOR 0.9% PF (SALINE LOCK) 10ML VIAL/SYR IV SCH ×2 (11:16→21:35)
[2022-07-31] MEDS: DAPTOmycin 500 MG in SODIUM CHL 0.9% 50 ML IV SCH (11:16)
[2022-07-31] MEDS: DAKINS HALF STR 0.25% (NaHypochlorite) 473 ML TOPICAL SOL TOP SCH ×2 (11:16→21:35)
[2022-07-31] MEDS: IRON SUCROSE COMPLEX 200 MG in SODIUM CHL 0.9% 100 ML IV SCH (12:29)
[2022-07-31 13:00] VITALS: BP 108/68
[2022-07-31] MEDS: HYDROcodone-ACET 5/325MG TAB PO PRN (15:40)
[2022-07-31 17:00] VITALS: BP 102/63
[2022-07-31] MEDS: ERGOCALCIFEROL 50,000 UNIT(1.25MG) CAP PO SCH (17:29)
[2022-07-31] MEDS: ATORVASTATIN 20 MG TAB PO SCH (21:34)
[2022-07-31] MEDS: SODIUM CHLORIDE 0.9% 1,000 ML IV SCH (21:47)
[2022-07-31] MEDS: INSULIN LANTUS (GLARGINE) 1 /0.01ml (100units/ml) SC SCH (21:47)
[2022-07-31 23:30] VITALS: BP 111/74
[2022-08-01 04:48] VITALS: BP 138/78
[2022-08-01] MEDS: SODIUM CHLORIDE 0.9% 1,000 ML IV SCH ×2 (05:49→21:50)
[2022-08-01] MEDS: CEFEPIME 2 GM in SODIUM CHL 0.9% 50 ML IV SCH ×3 (05:52→21:30)
[2022-08-01 05:58] LABS: Basophils # (auto) 0 10 ^3/uL (0-0.2); Basophils % (auto) 0.5 % (0.0-2.0); Eosinophils # (auto) 0.5 10 ^3/uL (0-0.8); Eosinophils % (auto) 5.9 % (0.0-7.0); Hematocrit 30.5 % (36.0-46.0); Hemoglobin 9.2 g/dL (12.2-16.2); Lymphocytes # (auto) 1.2 10 ^3/uL (0.4-5.4); Lymphocytes % (auto) 15.1 % (10.0-50.0); Mean Corpuscular Hemoglobin 24.8 pg (28.0-32.0); Mean Corpuscular Hgb Conc. 30.2 g/dL (32.0-36.0); Mean Corpuscular Volume 82.3 fL (80.0-100.0); Monocytes # (auto) 0.7 10 ^3/uL (0-1.3); Monocytes % (auto) 8.8 % (0.0-12.0); Neutrophils # (auto) 5.4 10 ^3/uL (1.6-8.6); Neutrophils % (auto) 69.7 % (37.0-80.0); Nucleated Red Blood Cells % 0.6 %; White Blood Cell 7.7 10^3/uL (4.4-10.8)
[2022-08-01 05:59] LABS: Red Cell Distribution Width 20.8 % (11.8-14.3)
[2022-08-01 06:24] LABS: BUN/Creatinine Ratio 26.6; Calcium 8.1 mg/dL (8.5-10.1); Potassium 3.2 mmol/L (3.5-5.1)
[2022-08-01] MEDS: ACCU-CHEK COMFORT CURVE STRIP VI SCH ×4 (06:35→22:00)
[2022-08-01] MEDS: InsuLIN REG 1unit/0.01ml Soln (100units/ml) SC SCH ×4 (06:36→21:41)
[2022-08-01] MEDS: LIDOCAINE 1%HCL (LOCAL ANESTH) 10 ML MDV ONE ×2 (08:18→09:30)
[2022-08-01] MEDS ORDERED: PROPOFOL 10 MG/ML 20 ML IV ONE ×2 (08:55→09:08)
[2022-08-01] MEDS ORDERED: KETOROLAC TROMETH 30 MG/ML 1ML VIAL ONE (08:55)
[2022-08-01] MEDS ORDERED: ONDANSETRON HCL 4 MG/2 ML VIAL ONE (08:55)
[2022-08-01] MEDS ORDERED: DexAMETHasone SOD PHOS 10MG/1ML VIAL INJ ONE (08:55)
[2022-08-01] MEDS ORDERED: GLYCOPYRROLATE 0.2 MG/ML 1ML VIAL ONE (08:55)
[2022-08-01] MEDS ORDERED: LIDOCAINE 2% (LOCAL ANESTH.) PF 5ml SDV ONE (08:55)
[2022-08-01 09:00] VITALS: BP 106/67
[2022-08-01] MEDS ORDERED: SODIUM CHLORIDE LOCK 10 ML ONE ×3 (09:11→09:21)
[2022-08-01] MEDS ORDERED: PHENYLEPHRINE HCL 10 MG/ML VL ONE (09:11)
[2022-08-01] MEDS ORDERED: ePHEDrine SULFATE 50 MG/ML AMP ONE (09:21)
[2022-08-01] MEDS: CYANOCOBALAMIN 500 MCG TAB PO SCH (09:23)
[2022-08-01] MEDS: GABAPENTIN 300 MG CAP PO SCH ×2 (09:23→21:31)
[2022-08-01] MEDS: SODIUM CHLOR 0.9% PF (SALINE LOCK) 10ML VIAL/SYR IV SCH ×2 (09:23→22:00)
[2022-08-01] MEDS: ZINC SULFATE 220mg CAP or TAB PO SCH (09:23)
[2022-08-01] MEDS: LISINOPRIL 10 MG TAB PO SCH (09:23)
[2022-08-01] MEDS: ASCORBIC ACID 500 MG TAB PO SCH (09:23)
[2022-08-01] MEDS: ENOXAPARIN SOD 40 MG/0.4 ML SYRINGE SC SCH (09:24)
[2022-08-01] MEDS: DAKINS HALF STR 0.25% (NaHypochlorite) 473 ML TOPICAL SOL TOP SCH ×2 (10:00→22:00)
[2022-08-01] MEDS ORDERED: fentaNYL CITRATE 100 MCG/2 ML VL ONE (10:11)
[2022-08-01] MEDS ORDERED: POTASSIUM CHL 20 Meq TABLET PO ONE (12:15)
[2022-08-01] MEDS: DAPTOmycin 500 MG in SODIUM CHL 0.9% 50 ML IV SCH (12:29)
[2022-08-01] MEDS: IRON SUCROSE COMPLEX 200 MG in SODIUM CHL 0.9% 100 ML IV SCH (12:53)
[2022-08-01 17:00] VITALS: BP 119/71
[2022-08-01] MEDS: ATORVASTATIN 20 MG TAB PO SCH (21:30)
[2022-08-01] MEDS: INSULIN LANTUS (GLARGINE) 1 /0.01ml (100units/ml) SC SCH (21:41)
[2022-08-01 22:00] VITALS: BP 118/64
[2022-08-02 05:00] VITALS: BP 123/67
[2022-08-02] MEDS: CEFEPIME 2 GM in SODIUM CHL 0.9% 50 ML IV SCH ×3 (06:06→22:15)
[2022-08-02 06:09] LABS: Basophils # (auto) 0 10 ^3/uL (0-0.2); Basophils % (auto) 0.3 % (0.0-2.0); Eosinophils # (auto) 0 10 ^3/uL (0-0.8); Eosinophils % (auto) 0.4 % (0.0-7.0); Hematocrit 26.3 % (36.0-46.0); Hemoglobin 8.3 g/dL (12.2-16.2); Lymphocytes # (auto) 1.3 10 ^3/uL (0.4-5.4); Lymphocytes % (auto) 15.1 % (10.0-50.0); Mean Corpuscular Hemoglobin 25.5 pg (28.0-32.0); Mean Corpuscular Hgb Conc. 31.4 g/dL (32.0-36.0); Mean Corpuscular Volume 81.3 fL (80.0-100.0); Monocytes # (auto) 0.8 10 ^3/uL (0-1.3); Monocytes % (auto) 9.9 % (0.0-12.0); Neutrophils # (auto) 6.3 10 ^3/uL (1.6-8.6); Neutrophils % (auto) 74.3 % (37.0-80.0); Nucleated Red Blood Cells % 0.2 %; Red Blood Cells 3.24 10^6/uL (4.0-5.20); White Blood Cell 8.5 10^3/uL (4.4-10.8)
[2022-08-02] MEDS: InsuLIN REG 1unit/0.01ml Soln (100units/ml) SC SCH ×4 (06:10→22:09)
[2022-08-02] MEDS: ACCU-CHEK COMFORT CURVE STRIP VI SCH ×4 (06:10→22:00)
[2022-08-02 06:13] LABS: Red Cell Distribution Width 21.3 % (11.8-14.3)
[2022-08-02 06:36] LABS: Potassium 3.7 mmol/L (3.5-5.1)
[2022-08-02 06:44] LABS: Albumin 2.3 g/dL (3.4-5.0); BUN/Creatinine Ratio 23.5; Bilirubin, Total 0.4 mg/dL (0.2-1.0); Calcium 8.1 mg/dL (8.5-10.1)
[2022-08-02] MEDS: GABAPENTIN 300 MG CAP PO SCH ×2 (08:47→22:16)
[2022-08-02] MEDS: ASCORBIC ACID 500 MG TAB PO SCH (08:47)
[2022-08-02] MEDS: ZINC SULFATE 220mg CAP or TAB PO SCH (08:47)
[2022-08-02] MEDS: SODIUM CHLOR 0.9% PF (SALINE LOCK) 10ML VIAL/SYR IV SCH ×2 (08:48→22:16)
[2022-08-02] MEDS: DAPTOmycin 500 MG in SODIUM CHL 0.9% 50 ML IV SCH (08:48)
[2022-08-02] MEDS: CYANOCOBALAMIN 500 MCG TAB PO SCH (08:48)
[2022-08-02] MEDS: ENOXAPARIN SOD 40 MG/0.4 ML SYRINGE SC SCH (08:51)
[2022-08-02 09:00] VITALS: BP 101/58
[2022-08-02] MEDS: LISINOPRIL 10 MG TAB PO SCH (09:09)
[2022-08-02] MEDS: DAKINS HALF STR 0.25% (NaHypochlorite) 473 ML TOPICAL SOL TOP SCH ×2 (09:09→22:00)
[2022-08-02 13:00] VITALS: BP 124/64
[2022-08-02] MEDS: IRON SUCROSE COMPLEX 200 MG in SODIUM CHL 0.9% 100 ML IV SCH (13:00)
[2022-08-02] MEDS: SODIUM CHLORIDE 0.9% 1,000 ML IV SCH (14:30)
[2022-08-02 17:00] VITALS: BP 123/68
[2022-08-02 22:00] VITALS: BP 110/64
[2022-08-02] MEDS: INSULIN LANTUS (GLARGINE) 1 /0.01ml (100units/ml) SC SCH (22:09)
[2022-08-02] MEDS: ATORVASTATIN 20 MG TAB PO SCH (22:16)
[2022-08-03] MEDS: HYDROcodone-ACET 5/325MG TAB PO PRN (00:51)
[2022-08-03 05:00] VITALS: BP 134/71
[2022-08-03] MEDS: InsuLIN REG 1unit/0.01ml Soln (100units/ml) SC SCH ×4 (06:25→22:47)
[2022-08-03] MEDS: ACCU-CHEK COMFORT CURVE STRIP VI SCH ×4 (06:26→22:48)
[2022-08-03] MEDS: CEFEPIME 2 GM in SODIUM CHL 0.9% 50 ML IV SCH ×3 (06:26→22:19)
[2022-08-03] MEDS: SODIUM CHLORIDE 0.9% 1,000 ML IV SCH ×2 (06:28→23:50)
[2022-08-03] MEDS: ASCORBIC ACID 500 MG TAB PO SCH (08:08)
[2022-08-03] MEDS: GABAPENTIN 300 MG CAP PO SCH ×3 (08:08→22:19)
[2022-08-03] MEDS: ENOXAPARIN SOD 40 MG/0.4 ML SYRINGE SC SCH (08:09)
[2022-08-03] MEDS: CYANOCOBALAMIN 500 MCG TAB PO SCH (08:09)
[2022-08-03] MEDS: ZINC SULFATE 220mg CAP or TAB PO SCH (08:09)
[2022-08-03] MEDS: DAPTOmycin 500 MG in SODIUM CHL 0.9% 50 ML IV SCH (08:10)
[2022-08-03] MEDS: LISINOPRIL 10 MG TAB PO SCH (08:10)
[2022-08-03] MEDS: DAKINS HALF STR 0.25% (NaHypochlorite) 473 ML TOPICAL SOL TOP SCH ×2 (08:11→22:20)
[2022-08-03] MEDS: SODIUM CHLOR 0.9% PF (SALINE LOCK) 10ML VIAL/SYR IV SCH ×2 (08:12→22:20)
[2022-08-03] MEDS: IRON SUCROSE COMPLEX 200 MG in SODIUM CHL 0.9% 100 ML IV SCH (12:49)
[2022-08-03 14:00] VITALS: BP 116/67
[2022-08-03 17:00] VITALS: BP 110/61
[2022-08-03 22:00] VITALS: BP 106/60
[2022-08-03] MEDS: ATORVASTATIN 20 MG TAB PO SCH (22:19)
[2022-08-03] MEDS: INSULIN LANTUS (GLARGINE) 1 /0.01ml (100units/ml) SC SCH (22:48)
[2022-08-04 05:00] VITALS: BP 123/72
[2022-08-04] MEDS: GABAPENTIN 300 MG CAP PO SCH ×3 (06:24→22:08)
[2022-08-04] MEDS: CEFEPIME 2 GM in SODIUM CHL 0.9% 50 ML IV SCH ×3 (06:24→22:11)
[2022-08-04] MEDS: ACCU-CHEK COMFORT CURVE STRIP VI SCH ×4 (06:25→22:37)
[2022-08-04] MEDS: InsuLIN REG 1unit/0.01ml Soln (100units/ml) SC SCH ×4 (06:31→22:35)
[2022-08-04 08:00] VITALS: BP 129/73
[2022-08-04] MEDS: ENOXAPARIN SOD 40 MG/0.4 ML SYRINGE SC SCH (10:52)
[2022-08-04] MEDS: ASCORBIC ACID 500 MG TAB PO SCH (10:52)
[2022-08-04] MEDS: LISINOPRIL 10 MG TAB PO SCH (10:53)
[2022-08-04] MEDS: ZINC SULFATE 220mg CAP or TAB PO SCH (10:53)
[2022-08-04] MEDS: CYANOCOBALAMIN 500 MCG TAB PO SCH (10:54)
[2022-08-04] MEDS: SODIUM CHLOR 0.9% PF (SALINE LOCK) 10ML VIAL/SYR IV SCH ×2 (10:54→22:11)
[2022-08-04 12:00] VITALS: BP 121/76
[2022-08-04] MEDS: DAPTOmycin 500 MG in SODIUM CHL 0.9% 50 ML IV SCH (12:50)
[2022-08-04] MEDS: DAKINS HALF STR 0.25% (NaHypochlorite) 473 ML TOPICAL SOL TOP SCH ×2 (12:50→22:00)
[2022-08-04] MEDS: IRON SUCROSE COMPLEX 200 MG in SODIUM CHL 0.9% 100 ML IV SCH (15:09)
[2022-08-04 16:00] VITALS: BP 120/74
[2022-08-04 22:00] VITALS: BP 104/65
[2022-08-04] MEDS: ATORVASTATIN 20 MG TAB PO SCH (22:07)
[2022-08-04] MEDS: INSULIN LANTUS (GLARGINE) 1 /0.01ml (100units/ml) SC SCH (22:36)
[2022-08-05 05:00] VITALS: BP 110/71
[2022-08-05] MEDS: CEFEPIME 2 GM in SODIUM CHL 0.9% 50 ML IV SCH ×2 (05:48→15:25)
[2022-08-05] MEDS: GABAPENTIN 300 MG CAP PO SCH ×2 (05:48→15:26)
[2022-08-05 05:59] LABS: Basophils # (auto) 0 10 ^3/uL (0-0.2); Basophils % (auto) 0.4 % (0.0-2.0); Eosinophils # (auto) 0.3 10 ^3/uL (0-0.8); Hematocrit 27.1 % (36.0-46.0); Monocytes % (auto) 11.8 % (0.0-12.0); Red Blood Cells 3.27 10^6/uL (4.0-5.20)
[2022-08-05 06:03] LABS: Eosinophils % (auto) 3.1 % (0.0-7.0); Hemoglobin 8.3 g/dL (12.2-16.2); Lymphocytes # (auto) 1.2 10 ^3/uL (0.4-5.4); Lymphocytes % (auto) 15.2 % (10.0-50.0); Mean Corpuscular Hemoglobin 25.5 pg (28.0-32.0); Mean Corpuscular Hgb Conc. 30.8 g/dL (32.0-36.0); Mean Corpuscular Volume 82.7 fL (80.0-100.0); Neutrophils # (auto) 5.7 10 ^3/uL (1.6-8.6); Neutrophils % (auto) 69.5 % (37.0-80.0); Nucleated Red Blood Cells % 0.6 %; White Blood Cell 8.2 10^3/uL (4.4-10.8)
[2022-08-05] MEDS: ACCU-CHEK COMFORT CURVE STRIP VI SCH ×3 (06:16→18:09)
[2022-08-05] MEDS: InsuLIN REG 1unit/0.01ml Soln (100units/ml) SC SCH ×3 (06:17→18:16)
[2022-08-05 06:18] LABS: Red Cell Distribution Width 22.3 % (11.8-14.3)
[2022-08-05 06:27] LABS: Calcium 8.2 mg/dL (8.5-10.1); Potassium 3.6 mmol/L (3.5-5.1)
[2022-08-05 06:45] LABS: BUN/Creatinine Ratio 13.6
[2022-08-05 08:00] VITALS: BP 131/71
[2022-08-05] MEDS: DAPTOmycin 500 MG in SODIUM CHL 0.9% 50 ML IV SCH (11:15)
[2022-08-05] MEDS: ASCORBIC ACID 500 MG TAB PO SCH (11:16)
[2022-08-05] MEDS: ZINC SULFATE 220mg CAP or TAB PO SCH (11:16)
[2022-08-05] MEDS: CYANOCOBALAMIN 500 MCG TAB PO SCH (11:16)
[2022-08-05] MEDS: LISINOPRIL 10 MG TAB PO SCH (11:16)
[2022-08-05] MEDS: SODIUM CHLOR 0.9% PF (SALINE LOCK) 10ML VIAL/SYR IV SCH (11:17)
[2022-08-05 12:00] VITALS: BP 125/74
[2022-08-05] MEDS ORDERED: GABA300C10 PO (12:27)
[2022-08-05] MEDS: IRON SUCROSE COMPLEX 200 MG in SODIUM CHL 0.9% 100 ML IV SCH (12:57)
[2022-08-05 16:00] VITALS: BP 118/70
[2022-08-05] MEDS: DAKINS HALF STR 0.25% (NaHypochlorite) 473 ML TOPICAL SOL TOP SCH (18:52)
[2022-08-05 20:05] VITALS: BP 117/71
== END 2022-08-05 20:35 | disposition home health service (06) | DRG 853 ==
LOC: ER 18:21 → OVERFLOW 07-24 01:17 → CENTRAL 07-24 06:35 → DOU IN ICU 07-24 22:15 → ICU CENTRL 07-26 01:21 → DOU IN ICU 07-29 02:26 → EAST 07-29 14:40
PROVIDERS: ADMIT Nurse Practitioner; ATTEND Internal Medicine
PROC: 30233N1 Transfusion of Nonautologous Red Blood Cells into Peripheral Vein, Percutaneous Approach (ICD-10-PCS; 2022-07-25)
PROC: 0QBM0ZZ Excision of Left Tarsal, Open Approach (ICD-10-PCS; principal; 2022-07-26)
PROC: 02HV33Z Insertion of Infusion Device into Superior Vena Cava, Percutaneous Approach (ICD-10-PCS; 2022-07-28)
PROC: B548ZZA Ultrasonography of Superior Vena Cava, Guidance (ICD-10-PCS; 2022-07-28)
PROC: 0Y6N0Z0 Detachment at Left Foot, Complete, Open Approach (ICD-10-PCS; 2022-08-01)
PROC: 0LSP0ZZ Reposition Left Lower Leg Tendon, Open Approach (ICD-10-PCS; 2022-08-01)
DX: A41.2 Sepsis due to unspecified staphylococcus (principal); E10.10 Type 1 diabetes mellitus with ketoacidosis without coma; E43 Unspecified severe protein-calorie malnutrition; M86.8X7 Other osteomyelitis, ankle and foot; L03.116 Cellulitis of left lower limb; L02.612 Cutaneous abscess of left foot; I10 Essential (primary) hypertension; Z20.822 Contact with and (suspected) exposure to COVID-19; L08.9 Local infection of the skin and subcutaneous tissue, unspecified; D64.9 Anemia, unspecified; E10.51 Type 1 diabetes mellitus with diabetic peripheral angiopathy without gangrene; E87.6 Hypokalemia; E10.628 Type 1 diabetes mellitus with other skin complications; E10.69 Type 1 diabetes mellitus with other specified complication; E78.5 Hyperlipidemia, unspecified; E10.621 Type 1 diabetes mellitus with foot ulcer; L97.509 Non-pressure chronic ulcer of other part of unspecified foot with unspecified severity; E66.9 Obesity, unspecified; Z68.33 Body mass index [BMI] 33.0-33.9, adult; Z88.2 Allergy status to sulfonamides; Z88.8 Allergy status to other drugs, medicaments and biological substances; Z89.439 Acquired absence of unspecified foot; Z88.1 Allergy status to other antibiotic agents; Z83.3 Family history of diabetes mellitus; Z79.4 Long term (current) use of insulin; Z82.49 Family history of ischemic heart disease and other diseases of the circulatory system; Z90.49 Acquired absence of other specified parts of digestive tract
CPT/HCPCS: 36415; 36569; 36600; 71045; 73620; 73630; 73720; 76000; 80048; 80053; 80061; 81003; 82010; 82043; 82306; 82550; 82607; 82728; 82746; 82805; 82962; 83036; 83540; 83550; 83605; 83615; 83735; 83930; 84100; 84443; 84702; 85025; 85045; 85610; 85652; 85730; 86141; 86850; 86900; 86901; 86920; 87040; 87070; 87075; 87077; 87081; 87186; 87205; 87426; 93005; 93926; 96365; 96367; G0378; J0330; J0690; J0696; J1100; J1756; J1815; J1885; J2001; J2250; J2405; J2704; J3490; J7042; J7060

== ENCOUNTER → 2022-07-24 | Outpatient (CLI) | payer OTHER | END | disposition home or self-care (01) | LOC: LAB 06:09 | PROVIDERS: ATTEND Podiatrist | DX: E11.42 Type 2 diabetes mellitus with diabetic polyneuropathy (principal) | CPT/HCPCS: 87075; 87076; 87205 ==

== ENCOUNTER → 2022-09-12 | Outpatient (CLI) | payer OTHER ==
[~2022-09-12] MED LIST changes: +CIPR500T4 PO; +FINE10TA PO; +GABA300C10 PO; -LACTCAP35 PO; +METR500T PO; -MULT-1018 PO
[2022-09-12 11:01] LABS: Basophils # (auto) 0 10 ^3/uL (0-0.2); Basophils % (auto) 0.4 % (0.0-2.0); Eosinophils # (auto) 0 10 ^3/uL (0-0.8); Eosinophils % (auto) 0.5 % (0.0-7.0); Hematocrit 44.8 % (36.0-46.0); Hemoglobin 14.2 g/dL (12.2-16.2); Lymphocytes # (auto) 1.1 10 ^3/uL (0.4-5.4); Mean Corpuscular Hemoglobin 28.4 pg (28.0-32.0); Mean Corpuscular Hgb Conc. 31.7 g/dL (32.0-36.0); Mean Corpuscular Volume 89.3 fL (80.0-100.0); Monocytes # (auto) 0.4 10 ^3/uL (0-1.3); Monocytes % (auto) 5.5 % (0.0-12.0); Neutrophils % (auto) 76.6 % (37.0-80.0); Red Blood Cells 5.01 10^6/uL (4.0-5.20); Red Cell Distribution Width 21.8 % (11.8-14.3); White Blood Cell 6.6 10^3/uL (4.4-10.8)
[2022-09-12 11:33] LABS: Albumin 3.8 g/dL (3.4-5.0); BUN/Creatinine Ratio 16.1; Calcium 8.9 mg/dL (8.5-10.1)
[2022-09-12 11:36] LABS: Bilirubin, Total 0.4 mg/dL (0.2-1.0); Total Protein 8.1 g/dL (6.4-8.2)
== END | disposition home or self-care (01) ==
LOC: LAB 10:48
PROVIDERS: ATTEND Internal Medicine
DX: M86.9 Osteomyelitis, unspecified (principal); M62.82 Rhabdomyolysis; E11.8 Type 2 diabetes mellitus with unspecified complications
CPT/HCPCS: 36415; 80053; 82550; 85025

== ENCOUNTER → 2022-09-24 | Outpatient (CLI) | payer OTHER ==
[2022-09-24 12:34] LABS: BUN/Creatinine Ratio 19.3; Calcium 9.3 mg/dL (8.5-10.1); Magnesium 1.9 mg/dL (1.6-2.6)
== END | disposition home or self-care (01) ==
LOC: LAB 11:12
PROVIDERS: ATTEND Internal Medicine
DX: I10 Essential (primary) hypertension (principal); E11.9 Type 2 diabetes mellitus without complications
CPT/HCPCS: 36415; 80048; 83735

== ENCOUNTER → 2022-10-02 | Outpatient (CLI) | payer OTHER ==
[2022-10-02 14:56] LABS: Basophils # (auto) 0 10 ^3/uL (0-0.2); Basophils % (auto) 0.6 % (0.0-2.0); Eosinophils # (auto) 0.1 10 ^3/uL (0-0.8); Eosinophils % (auto) 2.3 % (0.0-7.0); Hematocrit 43.9 % (36.0-46.0); Hemoglobin 14.5 g/dL (12.2-16.2); Lymphocytes # (auto) 1.8 10 ^3/uL (0.4-5.4); Lymphocytes % (auto) 28.9 % (10.0-50.0); Mean Corpuscular Hgb Conc. 33.1 g/dL (32.0-36.0); Mean Corpuscular Volume 87.6 fL (80.0-100.0); Monocytes # (auto) 0.5 10 ^3/uL (0-1.3); Monocytes % (auto) 7.2 % (0.0-12.0); Neutrophils # (auto) 3.9 10 ^3/uL (1.6-8.6); Nucleated Red Blood Cells % 0.2 %; Red Blood Cells 5.01 10^6/uL (4.0-5.20); Red Cell Distribution Width 19.5 % (11.8-14.3); White Blood Cell 6.3 10^3/uL (4.4-10.8)
[2022-10-02 15:28] LABS: INR 1.03 (0.9-1.15); Partial Thromboplastin Time 26.5 sec (24.6-33.4)
== END | disposition home or self-care (01) ==
LOC: LAB 14:42
PROVIDERS: ATTEND Internal Medicine
DX: E11.621 Type 2 diabetes mellitus with foot ulcer (principal); M86.9 Osteomyelitis, unspecified
CPT/HCPCS: 36415; 85025; 85610; 85730

== ENCOUNTER → 2022-10-03 | Outpatient (CLI) | payer OTHER | END | disposition home or self-care (01) | LOC: US 10:22 | PROVIDERS: ATTEND Internal Medicine | DX: R59.0 Localized enlarged lymph nodes (principal); K76.0 Fatty (change of) liver, not elsewhere classified | CPT/HCPCS: 93926 ==

== ENCOUNTER 2023-04-15 14:49 | Inpatient (IN) | payer OTHER ==
[~2023-04-15] VITALS: Ht 172.7 cm; Wt 100.7 kg
[~2023-04-15 14:49] MED LIST changes: +ACET-1882 PO; -ACET325T10 PO; +GABA-1250 PO; -GABA300C10 PO; -LISI-716 PO; +LISI10TA34 PO
[2023-04-15 15:58] LABS: Urine Bacteria NONE SEEN /hpf (None Seen); Urine Blood TRACE /uL (Negative); Urine Clarity Clear (Clear); Urine Color Colorless (Yellow); Urine Protein, UAD 1+ (Negative); Urine Specific Gravity 1.031 (1.001-1.035); Urine Urobilinogen Normal (Negative); Urine WBC 4 /hpf (0 - 5); Urine pH 5.5 (5.0-8.0)
[2023-04-15] MEDS ORDERED: PIPERACILLIN-TAZOB 3.375GM 100 ML IV ONE (16:00)
[2023-04-15] MEDS ORDERED: SODIUM CHLORIDE 0.9% 1,000 ML IV ONE (16:30)
[2023-04-15 16:45] LABS: Basophils # (auto) 0 10 ^3/uL (0-0.2); Basophils % (auto) 0.4 % (0.0-2.0); Eosinophils # (auto) 0 10 ^3/uL (0-0.8); Eosinophils % (auto) 0.2 % (0.0-7.0); Hematocrit 37.1 % (36.0-46.0); Hemoglobin 11.9 g/dL (12.2-16.2); Lymphocytes # (auto) 0.6 10 ^3/uL (0.4-5.4); Lymphocytes % (auto) 4.7 % (10.0-50.0); Mean Corpuscular Hemoglobin 29.2 pg (28.0-32.0); Mean Corpuscular Volume 91.2 fL (80.0-100.0); Monocytes # (auto) 0.9 10 ^3/uL (0-1.3); Monocytes % (auto) 7.5 % (0.0-12.0); Neutrophils # (auto) 10.7 10 ^3/uL (1.6-8.6); Neutrophils % (auto) 87.2 % (37.0-80.0); Nucleated Red Blood Cells % 0.1 %; Red Blood Cells 4.07 10^6/uL (4.0-5.20); Red Cell Distribution Width 16.3 % (11.8-14.3); White Blood Cell 12.2 10^3/uL (4.4-10.8)
[2023-04-15 17:21] LABS: Alanine Aminotransferase 15 U/L (7-40); Albumin 4.2 g/dL (3.2-4.8); Alkaline Phosphatase 64 U/L (46-116); Anion Gap 19.5 (5-15); Aspartate Aminotransferase 13 U/L (13-40); BUN/Creatinine Ratio 9.1 (10.0-20.0); Bilirubin, Total 0.4 mg/dL (0.2-1.0); Blood Urea Nitrogen 9 mg/dL (9-23); Calcium 9.2 mg/dL (8.5-10.1); Carbon Dioxide 14.5 mmol/L (20-30); Chloride 99 mmol/L (98-107); Glucose 290 mg/dL (74-106); Potassium 3.9 mmol/L (3.5-5.1); Sodium 133 mmol/L (136-145); Total Protein 7.3 g/dL (5.7-8.2)
[2023-04-15] MEDS ORDERED: MELO-335 PO (18:14)
[2023-04-15] MEDS ORDERED: METO-289 PO (18:14)
[2023-04-15] MEDS ORDERED: GAB100C PO (18:14)
[2023-04-15] MEDS ORDERED: ROSU1TAB15 PO (18:14)
[2023-04-15] MEDS ORDERED: LISI20TA56 PO (18:14)
[2023-04-15] MEDS ORDERED: DEXTROSE (50%) 50ML SYRG IV PRN (18:15)
[2023-04-15] MEDS ORDERED: NITROGLYCERIN 0.4 MG SL TAB SL PRN (18:15)
[2023-04-15] MEDS ORDERED: MORPHINE SULFATE INJ 2 MG/ml SYRG IV PRN (18:15)
[2023-04-15] MEDS: PIPERACILLIN-TAZOB 3.375GM 100 ML IV SCH (20:12)
[2023-04-15] MEDS: SODIUM CHLORIDE 0.9% 1,000 ML IV SCH (20:12)
[2023-04-15 20:30] VITALS: PULSE 108; RESP 14; O2SAT 98
[2023-04-15] MEDS: LISINOPRIL 20 MG TAB PO SCH (22:00)
[2023-04-15] MEDS: ACCU-CHEK COMFORT CURVE STRIP VI SCH (22:16)
[2023-04-15] MEDS: InsuLIN REG 1unit/0.01ml Soln (100units/ml) SC SCH (22:24)
[2023-04-15] MEDS: ATORVASTATIN 20 MG TAB PO SCH (22:25)
[2023-04-16] MEDS: SODIUM CHLORIDE 0.9% 1,000 ML IV SCH ×5 (01:04→15:30)
[2023-04-16] MEDS: PIPERACILLIN-TAZOB 3.375GM 100 ML IV SCH ×3 (02:51→18:38)
[2023-04-16 05:06] LABS: Basophils # (auto) 0 10 ^3/uL (0-0.2); Basophils % (auto) 0.3 % (0.0-2.0); Eosinophils # (auto) 0.1 10 ^3/uL (0-0.8); Eosinophils % (auto) 0.8 % (0.0-7.0); Lymphocytes # (auto) 1.6 10 ^3/uL (0.4-5.4); Lymphocytes % (auto) 13.4 % (10.0-50.0); Mean Corpuscular Hemoglobin 29.4 pg (28.0-32.0); Mean Corpuscular Hgb Conc. 32.3 g/dL (32.0-36.0); Monocytes % (auto) 8.8 % (0.0-12.0); Neutrophils # (auto) 9.2 10 ^3/uL (1.6-8.6); Neutrophils % (auto) 76.7 % (37.0-80.0); Nucleated Red Blood Cells % 0.1 %; Red Blood Cells 3.73 10^6/uL (4.0-5.20); Red Cell Distribution Width 16.2 % (11.8-14.3); White Blood Cell 11.9 10^3/uL (4.4-10.8)
[2023-04-16 05:24] LABS: Albumin 3.8 g/dL (3.2-4.8); Alkaline Phosphatase 54 U/L (46-116); Anion Gap 18.4 (5-15); Aspartate Aminotransferase 11 U/L (13-40); BUN/Creatinine Ratio 9.1 (10.0-20.0); Bilirubin, Total 0.3 mg/dL (0.2-1.0); Blood Urea Nitrogen 9 mg/dL (9-23); Calcium 8.4 mg/dL (8.7-10.4); Carbon Dioxide 14.6 mmol/L (20-30); Chloride 106 mmol/L (98-107); Glucose 156 mg/dL (74-106); Potassium 3.5 mmol/L (3.5-5.1); Sodium 139 mmol/L (136-145); Total Protein 6.4 g/dL (5.7-8.2)
[2023-04-16 05:46] LABS: Alanine Aminotransferase 9 U/L (7-40)
[2023-04-16] MEDS: ACCU-CHEK COMFORT CURVE STRIP VI SCH ×3 (06:19→17:10)
[2023-04-16] MEDS: InsuLIN REG 1unit/0.01ml Soln (100units/ml) SC SCH ×3 (06:29→17:10)
[2023-04-16 07:20] VITALS: PULSE 92; RESP 20; O2SAT 95
[2023-04-16] MEDS ORDERED: METOPROLOL SUCCINATE XL 50 MG TAB PO SCH (10:00)
[2023-04-16] MEDS: LISINOPRIL 20 MG TAB PO SCH (10:44)
[2023-04-16] MEDS: PANTOPRAZOLE 40 MG TAB PO SCH (10:44)
[2023-04-16] MEDS: GABAPENTIN 100 MG CAP PO SCH (10:45)
[2023-04-16] MEDS: Meloxicam 15 MG TABLET PO SCH (10:45)
[2023-04-16 20:00] VITALS: BP 107/63; PULSE 101; PULSE 107; RESP 19; TEMP 98.5; O2SAT 95
[2023-04-16 22:00] VITALS: BP 107/63; PULSE 101; RESP 19; TEMP 98.5; O2SAT 95
[2023-04-17] VITALS (7 sets, daily range): BP systolic 99–143; BP diastolic 63–90; PULSE 90–110; RESP 16–19; TEMP 97.6–98.1; O2SAT 95–100
[2023-04-17] MEDS: ATORVASTATIN 20 MG TAB PO SCH ×2 (00:12→21:40)
[2023-04-17] MEDS: LINEZOLID 600MG/300ML 300 ML IV SCH ×3 (00:12→21:41)
[2023-04-17] MEDS: ACCU-CHEK COMFORT CURVE STRIP VI SCH ×5 (00:16→21:41)
[2023-04-17] MEDS: InsuLIN REG 1unit/0.01ml Soln (100units/ml) SC SCH ×5 (00:18→21:53)
[2023-04-17] MEDS: SODIUM CHLORIDE 0.9% 1,000 ML IV SCH ×2 (03:26→11:30)
[2023-04-17] MEDS: PIPERACILLIN-TAZOB 3.375GM 100 ML IV SCH ×3 (03:26→18:18)
[2023-04-17 05:54] LABS: Basophils # (auto) 0 10 ^3/uL (0-0.2); Basophils % (auto) 0.2 % (0.0-2.0); Eosinophils # (auto) 0.1 10 ^3/uL (0-0.8); Eosinophils % (auto) 1.8 % (0.0-7.0); Hemoglobin 10.9 g/dL (12.2-16.2); Lymphocytes # (auto) 1.3 10 ^3/uL (0.4-5.4); Lymphocytes % (auto) 17.5 % (10.0-50.0); Mean Corpuscular Hemoglobin 29.4 pg (28.0-32.0); Mean Corpuscular Hgb Conc. 32.2 g/dL (32.0-36.0); Mean Corpuscular Volume 91.4 fL (80.0-100.0); Monocytes # (auto) 0.6 10 ^3/uL (0-1.3); Monocytes % (auto) 8.7 % (0.0-12.0); Neutrophils # (auto) 5.2 10 ^3/uL (1.6-8.6); Neutrophils % (auto) 71.8 % (37.0-80.0); Red Blood Cells 3.72 10^6/uL (4.0-5.20); Red Cell Distribution Width 16.9 % (11.8-14.3); White Blood Cell 7.2 10^3/uL (4.4-10.8)
[2023-04-17 05:58] LABS: Anion Gap 20.1 (5-15); Carbon Dioxide 11.9 mmol/L (20-30); Chloride 106 mmol/L (98-107); Potassium 3.7 mmol/L (3.5-5.1); Sodium 138 mmol/L (136-145)
[2023-04-17 06:00] LABS: Calcium 8.9 mg/dL (8.7-10.4)
[2023-04-17 06:04] LABS: Glucose 162 mg/dL (74-106)
[2023-04-17 06:05] LABS: BUN/Creatinine Ratio 5.5 (10.0-20.0); Blood Urea Nitrogen 5 mg/dL (9-23)
[2023-04-17 06:12] LABS: INR 1.08 (0.9-1.15); Prothrombin Time 11.3 sec (9.3-11.8)
[2023-04-17] MEDS: Meloxicam 15 MG TABLET PO SCH (10:00)
[2023-04-17] MEDS: LISINOPRIL 20 MG TAB PO SCH (10:48)
[2023-04-17] MEDS: GABAPENTIN 100 MG CAP PO SCH (10:49)
[2023-04-17] MEDS: METOPROLOL SUCCINATE XL 50 MG TAB PO SCH (10:49)
[2023-04-17] MEDS: PANTOPRAZOLE 40 MG TAB PO SCH (10:49)
[2023-04-17] MEDS: DAKINS QUARTER STR 0.125% (NaHypochlorite) 473 ML TOPICAL SOL TOP SCH (16:11)
[2023-04-17] MEDS: SODIUM BICARBONATE 50ML VIAL 50 ML in SOD CHL 0.45% 1,000 ML IV SCH (16:11)
[2023-04-18] VITALS (7 sets, daily range): BP systolic 101–113; BP diastolic 64–76; PULSE 88–102; RESP 15–17; TEMP 97.4–98.2; O2SAT 95–98
[2023-04-18] MEDS: SODIUM BICARBONATE 50ML VIAL 50 ML in SOD CHL 0.45% 1,000 ML IV SCH ×3 (00:55→22:00)
[2023-04-18] MEDS: PIPERACILLIN-TAZOB 3.375GM 100 ML IV SCH ×3 (02:49→17:34)
[2023-04-18 06:12] LABS: Hematocrit 34.3 % (36.0-46.0); Hemoglobin 11.4 g/dL (12.2-16.2); Mean Corpuscular Hemoglobin 29.8 pg (28.0-32.0); Mean Corpuscular Hgb Conc. 33.2 g/dL (32.0-36.0); Mean Corpuscular Volume 89.9 fL (80.0-100.0); Red Blood Cells 3.81 10^6/uL (4.0-5.20); Red Cell Distribution Width 16.2 % (11.8-14.3); White Blood Cell 7.6 10^3/uL (4.4-10.8)
[2023-04-18 06:16] LABS: Basophils % (manual) 0 (0.0-2.0); Blast Cells 0; Metamyelocytes % 0; Myelocytes % 0; Promyelocytes % 0; Reactive Lymphocytes 0
[2023-04-18 06:17] LABS: Alanine Aminotransferase 11 U/L (7-40); Albumin 3.9 g/dL (3.2-4.8); Alkaline Phosphatase 56 U/L (46-116); Anion Gap 17.6 (5-15); Aspartate Aminotransferase 10 U/L (13-40); Carbon Dioxide 15.4 mmol/L (20-30); Chloride 103 mmol/L (98-107); Cholesterol 110 mg/dL (< 200); Glucose 175 mg/dL (74-106); HDL Cholesterol 26 mg/dL (40-59); LDL Cholesterol 44 mg/dL (< 100); Magnesium 1.7 mg/dL (1.6-2.6); Potassium 3.5 mmol/L (3.5-5.1); Sodium 136 mmol/L (136-145); Triglycerides 251 mg/dL (< 150)
[2023-04-18 06:18] LABS: Bilirubin, Total 0.2 mg/dL (0.2-1.0); Total Protein 6.7 g/dL (5.7-8.2)
[2023-04-18 06:19] LABS: BUN/Creatinine Ratio 5.4 (10.0-20.0); Blood Urea Nitrogen < 5 mg/dL (9-23)
[2023-04-18] MEDS: ACCU-CHEK COMFORT CURVE STRIP VI SCH ×4 (06:31→22:26)
[2023-04-18] MEDS: InsuLIN REG 1unit/0.01ml Soln (100units/ml) SC SCH ×4 (06:35→21:21)
[2023-04-18] MEDS ORDERED: INSULIN LANTUS (GLARGINE) 1 /0.01ml (100units/ml) SC SCH (07:00)
[2023-04-18] MEDS: DAKINS QUARTER STR 0.125% (NaHypochlorite) 473 ML TOPICAL SOL TOP SCH (09:26)
[2023-04-18] MEDS: LINEZOLID 600MG/300ML 300 ML IV SCH ×2 (09:36→21:23)
[2023-04-18] MEDS: METOPROLOL SUCCINATE XL 50 MG TAB PO SCH (09:36)
[2023-04-18] MEDS: GABAPENTIN 100 MG CAP PO SCH (09:36)
[2023-04-18] MEDS: PANTOPRAZOLE 40 MG TAB PO SCH (09:36)
[2023-04-18] MEDS: Meloxicam 15 MG TABLET PO SCH (09:37)
[2023-04-18] MEDS: LISINOPRIL 20 MG TAB PO SCH (09:37)
[2023-04-18 11:08] LABS: Band Neutrophils % (manual) 5; Eosinophils % (manual) 1 (0-7); Lymphocytes % (manual) 20 (10.0-50.0); Monocytes % (manual) 5 (0-12)
[2023-04-18 11:09] LABS: Platelet Estimate Adequate
[2023-04-18] MEDS ORDERED: IBUPROFEN 400 MG TAB PO PRN (15:15)
[2023-04-18] MEDS: ATORVASTATIN 20 MG TAB PO SCH (21:23)
[2023-04-19] MEDS: PIPERACILLIN-TAZOB 3.375GM 100 ML IV SCH ×3 (01:46→17:29)
[2023-04-19] MEDS: SODIUM BICARBONATE 50ML VIAL 50 ML in SOD CHL 0.45% 1,000 ML IV SCH ×2 (05:04→19:00)
[2023-04-19 06:10] LABS: Basophils # (auto) 0 10 ^3/uL (0-0.2); Basophils % (auto) 0.3 % (0.0-2.0); Eosinophils # (auto) 0.1 10 ^3/uL (0-0.8); Eosinophils % (auto) 1.3 % (0.0-7.0); Hematocrit 34.3 % (36.0-46.0); Hemoglobin 11.5 g/dL (12.2-16.2); Lymphocytes # (auto) 1.5 10 ^3/uL (0.4-5.4); Lymphocytes % (auto) 20.8 % (10.0-50.0); Mean Corpuscular Hemoglobin 29.8 pg (28.0-32.0); Mean Corpuscular Hgb Conc. 33.6 g/dL (32.0-36.0); Mean Corpuscular Volume 88.7 fL (80.0-100.0); Monocytes # (auto) 0.7 10 ^3/uL (0-1.3); Monocytes % (auto) 9.5 % (0.0-12.0); Neutrophils # (auto) 4.8 10 ^3/uL (1.6-8.6); Neutrophils % (auto) 68.1 % (37.0-80.0); Nucleated Red Blood Cells % 0.1 %; Red Blood Cells 3.87 10^6/uL (4.0-5.20); Red Cell Distribution Width 16.1 % (11.8-14.3)
[2023-04-19 06:12] VITALS: BP 121/74; PULSE 97; RESP 14; TEMP 98.3; O2SAT 98
[2023-04-19 06:28] LABS: Anion Gap 13.9 (5-15); Carbon Dioxide 19.1 mmol/L (20-30); Chloride 102 mmol/L (98-107); Potassium 3.5 mmol/L (3.5-5.1); Sodium 135 mmol/L (136-145)
[2023-04-19 06:34] LABS: BUN/Creatinine Ratio 8.5 (10.0-20.0); Blood Urea Nitrogen 9 mg/dL (9-23); Glucose 221 mg/dL (74-106)
[2023-04-19] MEDS: InsuLIN REG 1unit/0.01ml Soln (100units/ml) SC SCH ×4 (06:34→21:58)
[2023-04-19] MEDS: ACCU-CHEK COMFORT CURVE STRIP VI SCH ×4 (06:38→21:59)
[2023-04-19] MEDS ORDERED: INSULIN LANTUS (GLARGINE) 1 /0.01ml (100units/ml) SC SCH (07:00)
[2023-04-19 08:00] VITALS: PULSE 97; RESP 18; O2SAT 96
[2023-04-19] MEDS: LINEZOLID 600MG/300ML 300 ML IV SCH ×2 (09:29→21:59)
[2023-04-19] MEDS: GABAPENTIN 100 MG CAP PO SCH (09:29)
[2023-04-19] MEDS: LISINOPRIL 10 MG TAB PO SCH (09:30)
[2023-04-19] MEDS: PANTOPRAZOLE 40 MG TAB PO SCH (09:31)
[2023-04-19] MEDS: METOPROLOL SUCCINATE XL 50 MG TAB PO SCH (09:31)
[2023-04-19] MEDS: DAKINS QUARTER STR 0.125% (NaHypochlorite) 473 ML TOPICAL SOL TOP SCH (09:31)
[2023-04-19 09:46] VITALS: BP 119/79; PULSE 97; RESP 18; TEMP 98.2; O2SAT 96
[2023-04-19 14:19] VITALS: BP 126/73; PULSE 98; RESP 19; TEMP 97.8; O2SAT 98
[2023-04-19] MEDS: INSULIN LANTUS (GLARGINE) 1 /0.01ml (100units/ml) SC SCH ×2 (16:25→21:59)
[2023-04-19 20:00] VITALS: PULSE 102; PULSE 88; RESP 16; O2SAT 95
[2023-04-19] MEDS: ATORVASTATIN 20 MG TAB PO SCH (21:59)
[2023-04-19 22:00] VITALS: BP 108/76; PULSE 95; RESP 18; TEMP 98.2; O2SAT 98
[2023-04-20] VITALS (7 sets, daily range): BP systolic 107–140; BP diastolic 75–83; PULSE 102–108; RESP 18–20; TEMP 97.9–98.2; O2SAT 94–100
[2023-04-20] MEDS: PIPERACILLIN-TAZOB 3.375GM 100 ML IV SCH ×3 (01:20→16:56)
[2023-04-20] MEDS: SODIUM BICARBONATE 50ML VIAL 50 ML in SOD CHL 0.45% 1,000 ML IV SCH ×2 (05:30→14:30)
[2023-04-20 06:14] LABS: Calcium 9.3 mg/dL (8.7-10.4); Chloride 102 mmol/L (98-107); Potassium 3.1 mmol/L (3.5-5.1); Sodium 137 mmol/L (136-145)
[2023-04-20 06:15] LABS: Anion Gap 11.3 (5-15); Carbon Dioxide 23.7 mmol/L (20-30)
[2023-04-20 06:20] LABS: BUN/Creatinine Ratio 5.9 (10.0-20.0); Blood Urea Nitrogen 6 mg/dL (9-23); Glucose 208 mg/dL (74-106)
[2023-04-20 06:39] LABS: Basophils # (auto) 0 10 ^3/uL (0-0.2); Basophils % (auto) 0.4 % (0.0-2.0); Eosinophils # (auto) 0.1 10 ^3/uL (0-0.8); Eosinophils % (auto) 1.4 % (0.0-7.0); Hematocrit 37.7 % (36.0-46.0); Hemoglobin 12.7 g/dL (12.2-16.2); Lymphocytes # (auto) 2.1 10 ^3/uL (0.4-5.4); Lymphocytes % (auto) 31.6 % (10.0-50.0); Mean Corpuscular Hemoglobin 29.9 pg (28.0-32.0); Mean Corpuscular Hgb Conc. 33.6 g/dL (32.0-36.0); Mean Corpuscular Volume 88.9 fL (80.0-100.0); Monocytes # (auto) 0.6 10 ^3/uL (0-1.3); Monocytes % (auto) 9.7 % (0.0-12.0); Neutrophils # (auto) 3.8 10 ^3/uL (1.6-8.6); Neutrophils % (auto) 56.9 % (37.0-80.0); Nucleated Red Blood Cells % 0.1 %; Red Blood Cells 4.24 10^6/uL (4.0-5.20); White Blood Cell 6.6 10^3/uL (4.4-10.8)
[2023-04-20] MEDS: InsuLIN REG 1unit/0.01ml Soln (100units/ml) SC SCH ×4 (07:00→21:25)
[2023-04-20] MEDS: ACCU-CHEK COMFORT CURVE STRIP VI SCH ×4 (07:19→21:26)
[2023-04-20] MEDS ORDERED: ceFAZolin 1GM/50ML 50 ML IV ONE (08:48)
[2023-04-20] MEDS ORDERED: POTASSIUM EFFERVESENT TAB 25 MEQ PO ONE (09:15)
[2023-04-20] MEDS ORDERED: POVIDONE IODINE 10 % TOPICAL OINT 30GM TOP ONE (09:33)
[2023-04-20] MEDS ORDERED: LIDOCAINE W/ EPINEPHRINE 1% 20ML VIAL ONE (09:43)
[2023-04-20] MEDS ORDERED: BUPIVACAINE 0.25% INJ 50ML VIAL ONE (09:44)
[2023-04-20] MEDS ORDERED: fentaNYL CITRATE 100 MCG/2 ML VL ONE (09:50)
[2023-04-20] MEDS ORDERED: MIDAZOLAM HCL 2MG/2ML 2ml VIAL (1mg/ml) ONE (09:50)
[2023-04-20] MEDS ORDERED: ROCURONIUM 10MG/ML 10ML VIAL IV ONE (09:52)
[2023-04-20] MEDS ORDERED: PROPOFOL 10 MG/ML 20 ML IV ONE ×2 (09:53→10:14)
[2023-04-20] MEDS ORDERED: LIDOCAINE 2% (LOCAL ANESTH.) PF 5ml SDV ONE (09:53)
[2023-04-20] MEDS ORDERED: ONDANSETRON HCL 4 MG/2 ML VIAL ONE (09:53)
[2023-04-20] MEDS: PANTOPRAZOLE 40 MG TAB PO SCH (10:00)
[2023-04-20] MEDS: LINEZOLID 600MG/300ML 300 ML IV SCH ×2 (10:00→21:23)
[2023-04-20] MEDS: GABAPENTIN 100 MG CAP PO SCH (10:00)
[2023-04-20] MEDS: DAKINS QUARTER STR 0.125% (NaHypochlorite) 473 ML TOPICAL SOL TOP SCH (10:00)
[2023-04-20] MEDS: LISINOPRIL 10 MG TAB PO SCH (10:00)
[2023-04-20] MEDS: INSULIN LANTUS (GLARGINE) 1 /0.01ml (100units/ml) SC SCH ×2 (10:00→21:26)
[2023-04-20] MEDS: METOPROLOL SUCCINATE XL 50 MG TAB PO SCH (10:00)
[2023-04-20] MEDS ORDERED: HYDROmorphone HCL 2 MG/ML VL/or syr ONE (10:47)
[2023-04-20] MEDS ORDERED: NEOSTIGMINE 1 MG/ML INJ (10mg/10ML VIAL) ONE (11:01)
[2023-04-20] MEDS ORDERED: GLYCOPYRROLATE 0.2 MG/ML 1ML VIAL ONE (11:01)
[2023-04-20] MEDS ORDERED: ONDANSETRON HCL 4 MG/2 ML VIAL IV PRN (11:30)
[2023-04-20] MEDS ORDERED: HYDROmorphone HCL 2 MG/ML VL/or syr IV PRN ×2 (11:30)
[2023-04-20] MEDS: HYDROmorphone HCL 2 MG/ML VL/or syr IV PRN ×3 (15:40→23:42)
[2023-04-20] MEDS: ATORVASTATIN 20 MG TAB PO SCH (21:23)
[2023-04-20] MEDS: HYDROcodone-ACET 5/325MG TAB PO PRN (21:23)
[2023-04-21] VITALS (7 sets, daily range): BP systolic 122–147; BP diastolic 72–87; PULSE 94–109; RESP 17–20; TEMP 97.7–98.6; O2SAT 93–97
[2023-04-21] MEDS: PIPERACILLIN-TAZOB 3.375GM 100 ML IV SCH ×2 (01:07→10:04)
[2023-04-21] MEDS: HYDROcodone-ACET 5/325MG TAB PO PRN ×2 (04:13→11:42)
[2023-04-21] MEDS: SODIUM BICARBONATE 50ML VIAL 50 ML in SOD CHL 0.45% 1,000 ML IV SCH ×3 (04:14→21:52)
[2023-04-21] MEDS: HYDROmorphone HCL 2 MG/ML VL/or syr IV PRN (05:54)
[2023-04-21] MEDS: InsuLIN REG 1unit/0.01ml Soln (100units/ml) SC SCH ×4 (05:55→21:41)
[2023-04-21] MEDS: ACCU-CHEK COMFORT CURVE STRIP VI SCH ×4 (05:56→21:40)
[2023-04-21 06:17] LABS: Basophils # (auto) 0 10 ^3/uL (0-0.2); Basophils % (auto) 0.4 % (0.0-2.0); Eosinophils # (auto) 0 10 ^3/uL (0-0.8); Eosinophils % (auto) 0.1 % (0.0-7.0); Hematocrit 33.8 % (36.0-46.0); Hemoglobin 11.2 g/dL (12.2-16.2); Mean Corpuscular Hemoglobin 29.4 pg (28.0-32.0); Mean Corpuscular Hgb Conc. 33.1 g/dL (32.0-36.0); Monocytes # (auto) 0.8 10 ^3/uL (0-1.3); Monocytes % (auto) 8.6 % (0.0-12.0); Neutrophils # (auto) 7.5 10 ^3/uL (1.6-8.6); Neutrophils % (auto) 79.9 % (37.0-80.0); Nucleated Red Blood Cells % 0.1 %; Red Cell Distribution Width 15.9 % (11.8-14.3); White Blood Cell 9.4 10^3/uL (4.4-10.8)
[2023-04-21 06:22] LABS: Chloride 98 mmol/L (98-107); Potassium 3.2 mmol/L (3.5-5.1); Sodium 135 mmol/L (136-145)
[2023-04-21 06:23] LABS: Anion Gap 12.5 (5-15); Calcium 8.7 mg/dL (8.7-10.4); Carbon Dioxide 24.5 mmol/L (20-30)
[2023-04-21 06:28] LABS: Glucose 197 mg/dL (74-106)
[2023-04-21 07:42] LABS: BUN/Creatinine Ratio 6.7 (10.0-20.0); Blood Urea Nitrogen < 5 mg/dL (9-23)
[2023-04-21] MEDS ORDERED: POTASSIUM EFFERVESENT TAB 25 MEQ PO ONE (08:45)
[2023-04-21] MEDS ORDERED: KETOROLAC TROMETH 60MG/2ML VIAL IM ONE (09:15)
[2023-04-21] MEDS ORDERED: MEPERIDINE HCL (25 MG/ML) 1ML VIAL IV PRN (09:15)
[2023-04-21] MEDS: PANTOPRAZOLE 40 MG TAB PO SCH (10:02)
[2023-04-21] MEDS: METOPROLOL SUCCINATE XL 50 MG TAB PO SCH (10:02)
[2023-04-21] MEDS: LISINOPRIL 10 MG TAB PO SCH (10:03)
[2023-04-21] MEDS: GABAPENTIN 100 MG CAP PO SCH (10:03)
[2023-04-21] MEDS: LINEZOLID 600MG/300ML 300 ML IV SCH (10:04)
[2023-04-21] MEDS: INSULIN LANTUS (GLARGINE) 1 /0.01ml (100units/ml) SC SCH ×2 (10:14→21:41)
[2023-04-21] MEDS: DAKINS QUARTER STR 0.125% (NaHypochlorite) 473 ML TOPICAL SOL TOP SCH (10:16)
[2023-04-21] MEDS ORDERED: ONDANSETRON HCL 4 MG/2 ML VIAL IV PRN (12:00)
[2023-04-21] MEDS: cefTRIAXone 1GM/50ML D5W 50 ML IV SCH (15:30)
[2023-04-21] MEDS: KETOROLAC TROMETH 30 MG/ML 1ML VIAL IV PRN ×2 (16:24→23:23)
[2023-04-21] MEDS: GABAPENTIN 300 MG CAP PO SCH (21:39)
[2023-04-21] MEDS: LINEZOLID 600MG TABLET PO SCH (21:39)
[2023-04-21] MEDS: ATORVASTATIN 20 MG TAB PO SCH (21:40)
[2023-04-21] MEDS: OXYCODONE W/ ACETAMINOPHEN 5/325MG TABLET PO PRN (21:48)
[2023-04-22] VITALS (7 sets, daily range): BP systolic 93–126; BP diastolic 62–76; PULSE 93–101; RESP 16–20; TEMP 97.8–98.4; O2SAT 93–96
[2023-04-22] MEDS: OXYCODONE W/ ACETAMINOPHEN 5/325MG TABLET PO PRN ×3 (05:34→21:42)
[2023-04-22 05:50] LABS: Basophils # (auto) 0 10 ^3/uL (0-0.2); Basophils % (auto) 0.3 % (0.0-2.0); Eosinophils # (auto) 0.1 10 ^3/uL (0-0.8); Eosinophils % (auto) 0.8 % (0.0-7.0); Hematocrit 31.6 % (36.0-46.0); Hemoglobin 10.6 g/dL (12.2-16.2); Lymphocytes # (auto) 1.4 10 ^3/uL (0.4-5.4); Lymphocytes % (auto) 20.1 % (10.0-50.0); Mean Corpuscular Hemoglobin 29.6 pg (28.0-32.0); Mean Corpuscular Hgb Conc. 33.6 g/dL (32.0-36.0); Mean Corpuscular Volume 88.1 fL (80.0-100.0); Monocytes # (auto) 0.6 10 ^3/uL (0-1.3); Monocytes % (auto) 8.8 % (0.0-12.0); Neutrophils # (auto) 4.7 10 ^3/uL (1.6-8.6); Nucleated Red Blood Cells % 0.1 %; Red Blood Cells 3.59 10^6/uL (4.0-5.20); White Blood Cell 6.8 10^3/uL (4.4-10.8)
[2023-04-22 05:55] LABS: Anion Gap 8.2 (5-15); Carbon Dioxide 30.8 mmol/L (20-30); Chloride 97 mmol/L (98-107); Potassium 3.1 mmol/L (3.5-5.1); Sodium 136 mmol/L (136-145)
[2023-04-22 05:56] LABS: Calcium 8.4 mg/dL (8.7-10.4)
[2023-04-22 06:01] LABS: BUN/Creatinine Ratio 7.9 (10.0-20.0); Blood Urea Nitrogen 5 mg/dL (9-23); Glucose 97 mg/dL (74-106)
[2023-04-22] MEDS: InsuLIN REG 1unit/0.01ml Soln (100units/ml) SC SCH ×4 (06:31→21:55)
[2023-04-22] MEDS: ACCU-CHEK COMFORT CURVE STRIP VI SCH ×4 (06:31→21:43)
[2023-04-22] MEDS ORDERED: POTASSIUM CHL 20 Meq TABLET PO ONE (08:30)
[2023-04-22] MEDS: GABAPENTIN 300 MG CAP PO SCH ×3 (09:46→21:43)
[2023-04-22] MEDS: cefTRIAXone 1GM/50ML D5W 50 ML IV SCH (09:46)
[2023-04-22] MEDS: LISINOPRIL 10 MG TAB PO SCH (09:47)
[2023-04-22] MEDS: METOPROLOL SUCCINATE XL 50 MG TAB PO SCH (09:47)
[2023-04-22] MEDS: LINEZOLID 600MG TABLET PO SCH ×2 (09:47→21:42)
[2023-04-22] MEDS: PANTOPRAZOLE 40 MG TAB PO SCH (09:48)
[2023-04-22] MEDS: DAKINS QUARTER STR 0.125% (NaHypochlorite) 473 ML TOPICAL SOL TOP SCH (10:00)
[2023-04-22] MEDS: INSULIN LANTUS (GLARGINE) 1 /0.01ml (100units/ml) SC SCH ×2 (11:22→21:55)
[2023-04-22] MEDS: Juven Fruit Punch Powder PACKET 28.8gm PO SCH (18:29)
[2023-04-22] MEDS: ATORVASTATIN 20 MG TAB PO SCH (21:43)
[2023-04-23] MEDS: OXYCODONE W/ ACETAMINOPHEN 5/325MG TABLET PO PRN ×2 (01:45→06:43)
[2023-04-23 05:00] VITALS: BP 115/72; PULSE 96; RESP 20; TEMP 98.6; O2SAT 95
[2023-04-23] MEDS: GABAPENTIN 300 MG CAP PO SCH ×2 (06:43→14:30)
[2023-04-23] MEDS: ACCU-CHEK COMFORT CURVE STRIP VI SCH ×2 (06:44→12:22)
[2023-04-23] MEDS: InsuLIN REG 1unit/0.01ml Soln (100units/ml) SC SCH ×2 (06:44→12:23)
[2023-04-23 08:00] VITALS: BP 115/71; PULSE 101; RESP 18; TEMP 97.8; O2SAT 100; O2SAT 95
[2023-04-23 08:00] LABS: Anion Gap 11.3 (5-15); Carbon Dioxide 25.7 mmol/L (20-30); Chloride 99 mmol/L (98-107); Potassium 3.6 mmol/L (3.5-5.1); Sodium 136 mmol/L (136-145)
[2023-04-23 08:01] LABS: Calcium 8.4 mg/dL (8.7-10.4)
[2023-04-23 08:05] LABS: Glucose 117 mg/dL (74-106)
[2023-04-23 08:06] LABS: BUN/Creatinine Ratio 10.6 (10.0-20.0); Blood Urea Nitrogen 7 mg/dL (9-23)
[2023-04-23] MEDS ORDERED: CEPH500T PO (09:48)
[2023-04-23] MEDS ORDERED: PERCOT PO (09:48)
[2023-04-23] MEDS ORDERED: GABA-1250 PO (09:48)
[2023-04-23] MEDS ORDERED: DOCU-94 PO (09:48)
[2023-04-23] MEDS: Juven Fruit Punch Powder PACKET 28.8gm PO SCH (09:51)
[2023-04-23] MEDS: LINEZOLID 600MG TABLET PO SCH (09:52)
[2023-04-23] MEDS: METOPROLOL SUCCINATE XL 50 MG TAB PO SCH (09:53)
[2023-04-23] MEDS: LISINOPRIL 10 MG TAB PO SCH (09:53)
[2023-04-23] MEDS: PANTOPRAZOLE 40 MG TAB PO SCH (09:53)
[2023-04-23] MEDS: DAKINS QUARTER STR 0.125% (NaHypochlorite) 473 ML TOPICAL SOL TOP SCH (09:53)
[2023-04-23] MEDS: cefTRIAXone 1GM/50ML D5W 50 ML IV SCH (09:54)
[2023-04-23 12:00] VITALS: BP 122/68; PULSE 104; RESP 16; TEMP 98.2; O2SAT 96
[2023-04-23] MEDS: INSULIN LANTUS (GLARGINE) 1 /0.01ml (100units/ml) SC SCH (12:24)
[2023-04-23 13:21] VITALS: BP 122/68; PULSE 104; RESP 16; TEMP 98.2; O2SAT 96
== END 2023-04-23 14:50 | disposition home or self-care (01) | DRG 854 ==
LOC: ER 14:49 → TELE 18:08 → TELE-CENTR 04-16 16:35
PROVIDERS: ADMIT Internal Medicine
PROC: 0Y6J0Z3 Detachment at Left Lower Leg, Low, Open Approach (ICD-10-PCS; principal; 2023-04-20 09:46)
DX: A41.9 Sepsis, unspecified organism (principal); M86.172 Other acute osteomyelitis, left ankle and foot; M86.672 Other chronic osteomyelitis, left ankle and foot; E11.65 Type 2 diabetes mellitus with hyperglycemia; E11.621 Type 2 diabetes mellitus with foot ulcer; E11.69 Type 2 diabetes mellitus with other specified complication; I10 Essential (primary) hypertension; E78.5 Hyperlipidemia, unspecified; E66.01 Morbid (severe) obesity due to excess calories; L97.529 Non-pressure chronic ulcer of other part of left foot with unspecified severity; Z88.2 Allergy status to sulfonamides; Z88.1 Allergy status to other antibiotic agents; Z90.49 Acquired absence of other specified parts of digestive tract; Z68.33 Body mass index [BMI] 33.0-33.9, adult; Z82.49 Family history of ischemic heart disease and other diseases of the circulatory system; Z83.42 Family history of familial hypercholesterolemia; Z83.3 Family history of diabetes mellitus
CPT/HCPCS: 36415; 80048; 80053; 80061; 81001; 82962; 83036; 83605; 83735; 84443; 85007; 85025; 85027; 85610; 85730; 86850; 86900; 86901; 87040; 87205; 93005; 93926; 97110; 97163; 97530; G0378; J0690; J0696; J1815; J1885; J2001; J2250; J2405; J2543; J2704; J3490

== ENCOUNTER → 2023-04-30 | Outpatient (CLI) | payer OTHER ==
[~2023-04-30] MED LIST changes: +CEPH500T PO; +DOCU-94 PO; +GAB100C PO; +LISI20TA56 PO; +MELO-335 PO; +METO-289 PO; +PERCOT PO; +ROSU1TAB15 PO
[2023-04-30 11:57] LABS: Basophils # (auto) 0 10 ^3/uL (0-0.2); Basophils % (auto) 0.4 % (0.0-2.0); Eosinophils # (auto) 0.1 10 ^3/uL (0-0.8); Eosinophils % (auto) 0.8 % (0.0-7.0); Hematocrit 35.3 % (36.0-46.0); Hemoglobin 11.5 g/dL (12.2-16.2); Lymphocytes # (auto) 1.7 10 ^3/uL (0.4-5.4); Lymphocytes % (auto) 21.2 % (10.0-50.0); Mean Corpuscular Hemoglobin 29.6 pg (28.0-32.0); Mean Corpuscular Hgb Conc. 32.6 g/dL (32.0-36.0); Mean Corpuscular Volume 90.9 fL (80.0-100.0); Monocytes # (auto) 0.6 10 ^3/uL (0-1.3); Monocytes % (auto) 7.5 % (0.0-12.0); Neutrophils # (auto) 5.6 10 ^3/uL (1.6-8.6); Neutrophils % (auto) 70.1 % (37.0-80.0); Nucleated Red Blood Cells % 0.8 %; Red Blood Cells 3.89 10^6/uL (4.0-5.20); Red Cell Distribution Width 16.3 % (11.8-14.3)
[2023-04-30 12:49] LABS: Erythrocyte Sedimentation Rate 55 mm/hr (0-20)
== END | disposition home or self-care (01) ==
LOC: LAB 11:22
PROVIDERS: ATTEND Internal Medicine
DX: E11.621 Type 2 diabetes mellitus with foot ulcer (principal); M86.9 Osteomyelitis, unspecified
CPT/HCPCS: 36415; 85025; 85652

== ENCOUNTER → 2023-10-26 | Outpatient (CLI) | payer OTHER ==
[2023-10-26 10:48] LABS: Chloride 103 mmol/L (98-107); Potassium 4.1 mmol/L (3.5-5.1); Sodium 137 mmol/L (136-145)
[2023-10-26 10:49] LABS: Anion Gap 7 (5-15); Carbon Dioxide 27 mmol/L (20-30)
[2023-10-26 10:50] LABS: Calcium 10.4 mg/dL (8.5-10.1)
[2023-10-26 10:54] LABS: Glucose 247 mg/dL (74-106)
[2023-10-26 10:55] LABS: BUN/Creatinine Ratio 17.7 (10.0-20.0); Blood Urea Nitrogen 17 mg/dL (9-23)
[2023-10-26 11:39] LABS: Creatinine, Urine 44.25 mg/dL (30.0-125.0)
== END | disposition home or self-care (01) ==
LOC: LAB 09:48
PROVIDERS: ATTEND Internal Medicine
DX: I10 Essential (primary) hypertension (principal); E11.9 Type 2 diabetes mellitus without complications; E78.5 Hyperlipidemia, unspecified
CPT/HCPCS: 36415; 80048; 82043; 82306; 82570

== ENCOUNTER 2024-05-09 14:43 | Inpatient (IN) | payer OTHER ==
[~2024-05-09] VITALS: Ht 175.3 cm; Wt 99.8 kg
[~2024-05-09 14:43] MED LIST changes: -MELO-335 PO; +MELO15TA29 PO; -ROSU1TAB15 PO; +ROSU40TA47 PO
[2024-05-09] MEDS ORDERED: DEXTROSE (50%) 50ML SYRG IV PRN (16:00)
[2024-05-09 16:41] LABS: Basophils # (auto) 0 10 ^3/uL (0-0.2); Basophils % (auto) 0.1 % (0.0-2.0); Eosinophils # (auto) 0.1 10 ^3/uL (0-0.8); Eosinophils % (auto) 0.5 % (0.0-7.0); Hematocrit 35.5 % (36.0-46.0); Hemoglobin 11.4 g/dL (12.2-16.2); Lymphocytes % (auto) 8.3 % (10.0-50.0); Mean Corpuscular Hemoglobin 28.9 pg (28.0-32.0); Mean Corpuscular Hgb Conc. 32.2 g/dL (32.0-36.0); Mean Corpuscular Volume 89.7 fL (80.0-100.0); Monocytes # (auto) 0.6 10 ^3/uL (0-1.3); Monocytes % (auto) 5.5 % (0.0-12.0); Neutrophils # (auto) 9.8 10 ^3/uL (1.6-8.6); Neutrophils % (auto) 85.6 % (37.0-80.0); Platelet Count (auto) 326 10^3/uL (140-450); Red Blood Cells 3.95 10^6/uL (4.0-5.20); Red Cell Distribution Width 15.7 % (11.8-14.3); White Blood Cell 11.5 10^3/uL (4.4-10.8)
[2024-05-09 16:56] LABS: Alanine Aminotransferase 12 U/L (7-40); Albumin 4.4 g/dL (3.2-4.8); Alkaline Phosphatase 77 U/L (46-116); Anion Gap 11 (5-15); Aspartate Aminotransferase < 8 U/L (13-40); BUN/Creatinine Ratio 17.3 (10.0-20.0); Bilirubin, Total 0.5 mg/dL (0.2-1.0); Blood Urea Nitrogen 19 mg/dL (9-23); Calcium 9.5 mg/dL (8.7-10.4); Carbon Dioxide 23 mmol/L (20-30); Chloride 106 mmol/L (98-107); Glucose 223 mg/dL (74-106); Potassium 3.4 mmol/L (3.5-5.1); Sodium 140 mmol/L (136-145); Total Protein 7.1 g/dL (5.7-8.2)
[2024-05-09 16:59] LABS: INR 1.03 (0.9-1.15); Partial Thromboplastin Time 27.7 SEC (24.5-34.5); Prothrombin Time 10.9 sec (9.3-11.8)
[2024-05-09] MEDS: ACCU-CHEK COMFORT CURVE STRIP VI SCH (17:00)
[2024-05-09] MEDS: InsuLIN REG 1unit/0.01ml Soln (100units/ml) SC SCH (20:52)
[2024-05-09] MEDS: cefTRIAXone 2GM/50ML D5W 50 ML IV ONE (20:54)
[2024-05-09 21:23] VITALS: PULSE 88; RESP 16; O2SAT 98
[2024-05-09] MEDS: LINEZOLID 600MG/300ML 300 ML IV SCH (22:23)
[2024-05-09] MEDS ORDERED: ONDANSETRON HCL 4 MG/2 ML VIAL IV PRN (23:00)
[2024-05-09] MEDS ORDERED: HYDROcodone-ACET 5/325MG TAB PO PRN (23:00)
[2024-05-09] MEDS ORDERED: ACETAMINOPHEN 325 MG TAB PO PRN (23:00)
[2024-05-10] VITALS (10 sets, daily range): BP systolic 101–124; BP diastolic 54–72; PULSE 86–90; RESP 16–18; TEMP 97.6–98.8; O2SAT 93–100
[2024-05-10] MEDS ORDERED: TIRZ10IN SC (04:17)
[2024-05-10] MEDS ORDERED: ERGO1CAP23 PO (04:19)
[2024-05-10 05:20] LABS: Urine Amorphous Crystal FEW /hpf (None Seen); Urine Bacteria FEW /hpf (None Seen); Urine Blood 1+ /uL (Negative); Urine Clarity Clear (Clear); Urine Color Light-Yellow (Yellow); Urine Protein, UAD 1+ (Negative); Urine Specific Gravity 1.026 (1.001-1.035); Urine Urobilinogen Normal (Negative); Urine WBC 23 /hpf (0 - 5); Urine pH 5.5 (5.0-9.0)
[2024-05-10] MEDS: GABAPENTIN 300 MG CAP PO SCH (06:29)
[2024-05-10 07:11] LABS: Basophils # (auto) 0 10 ^3/uL (0-0.2); Basophils % (auto) 0.2 % (0.0-2.0); Calcium 9.3 mg/dL (8.7-10.4); Chloride 107 mmol/L (98-107); Eosinophils # (auto) 0.2 10 ^3/uL (0-0.8); Eosinophils % (auto) 1.8 % (0.0-7.0); Hematocrit 36.9 % (36.0-46.0); Hemoglobin 11.5 g/dL (12.2-16.2); Lymphocytes # (auto) 1.4 10 ^3/uL (0.4-5.4); Mean Corpuscular Hemoglobin 29.5 pg (28.0-32.0); Mean Corpuscular Hgb Conc. 31.1 g/dL (32.0-36.0); Mean Corpuscular Volume 94.8 fL (80.0-100.0); Monocytes # (auto) 0.9 10 ^3/uL (0-1.3); Monocytes % (auto) 8.1 % (0.0-12.0); Neutrophils # (auto) 8.4 10 ^3/uL (1.6-8.6); Neutrophils % (auto) 76.9 % (37.0-80.0); Nucleated Red Blood Cells % 0.1 %; Platelet Count (auto) 305 10^3/uL (140-450); Potassium 3.1 mmol/L (3.5-5.1); Red Blood Cells 3.89 10^6/uL (4.0-5.20); Red Cell Distribution Width 16.9 % (11.8-14.3); Sodium 138 mmol/L (136-145)
[2024-05-10 07:12] LABS: Anion Gap 11 (5-15); Carbon Dioxide 20 mmol/L (20-30)
[2024-05-10 07:17] LABS: BUN/Creatinine Ratio 13.6 (10.0-20.0); Blood Urea Nitrogen 12 mg/dL (9-23); Glucose 148 mg/dL (74-106)
[2024-05-10] MEDS: LISINOPRIL 20 MG TAB PO SCH (10:05)
[2024-05-10] MEDS: METOPROLOL SUCCINATE XL 50 MG TAB PO SCH (10:06)
[2024-05-10] MEDS: ENOXAPARIN SOD 40 MG/0.4 ML SYRINGE SC SCH (10:07)
[2024-05-10] MEDS: POTASSIUM CHL 20 Meq TABLET PO ONE (12:32)
[2024-05-10] MEDS: CEFEPIME 1GM/ 50ML 50 ML IV SCH (15:49)
[2024-05-10] MEDS: ATORVASTATIN 20 MG TAB PO SCH (21:45)
[2024-05-11] VITALS (8 sets, daily range): BP systolic 88–104; BP diastolic 47–64; PULSE 91–115; RESP 16–20; TEMP 98.2–99.1; O2SAT 93–98
[2024-05-11] MEDS ORDERED: ceFAZolin 2 GM/D5W100ml 100 ML IV ONE (12:50)
[2024-05-11] MEDS ORDERED: SODIUM CHLORIDE LOCK 10 ML ONE (12:54)
[2024-05-11] MEDS ORDERED: KETAMINE 50mg/ML 1ml syringe ONE (12:54)
[2024-05-11] MEDS ORDERED: MIDAZOLAM HCL 2MG/2ML 2ml VIAL (1mg/ml) ONE (12:54)
[2024-05-11] MEDS ORDERED: ONDANSETRON HCL 4 MG/2 ML VIAL ONE ×2 (12:54→13:51)
[2024-05-11] MEDS ORDERED: LIDOCAINE 1% INJ PF 5ML AMP ONE (12:54)
[2024-05-11] MEDS ORDERED: fentaNYL CITRATE 100 MCG/2 ML VL ONE (12:54)
[2024-05-11] MEDS ORDERED: PROPOFOL 10 MG/ML 20 ML IV ONE (12:54)
[2024-05-11] MEDS: LIDOCAINE 1% HCL (LOCAL ANESTH.) INJ 20ML MDV ONE (13:40)
[2024-05-11] MEDS ORDERED: ePHEDrine SULFATE 50 MG/ML AMP ONE (13:56)
[2024-05-12] VITALS (7 sets, daily range): BP systolic 94–135; BP diastolic 55–79; PULSE 88–98; RESP 16–20; TEMP 97.3–98.7; O2SAT 91–96
[2024-05-13 01:00] VITALS: BP 102/58; PULSE 90; RESP 18; TEMP 98.6; O2SAT 93
[2024-05-13 05:00] VITALS: BP 108/64; PULSE 85; RESP 18; TEMP 98; O2SAT 96
[2024-05-13 09:11] VITALS: BP 107/64; PULSE 85; RESP 17; TEMP 98.3; O2SAT 94
[2024-05-13] MEDS ORDERED: ONDANSETRON HCL 4 MG/2 ML VIAL ONE (11:26)
[2024-05-13] MEDS ORDERED: KETOROLAC TROMETH 30 MG/ML 1ML VIAL ONE (11:26)
[2024-05-13] MEDS ORDERED: DexAMETHasone SOD PHOS 10MG/1ML VIAL INJ ONE (11:26)
[2024-05-13] MEDS ORDERED: PROPOFOL 10 MG/ML 20 ML IV ONE ×2 (11:26→12:25)
[2024-05-13] MEDS ORDERED: GLYCOPYRROLATE 0.2 MG/ML 1ML VIAL ONE (11:26)
[2024-05-13] MEDS ORDERED: LIDOCAINE 1% INJ PF 5ML AMP ONE (11:26)
[2024-05-13] MEDS ORDERED: KETAMINE 50mg/ML 1ml syringe ONE (11:28)
[2024-05-13] MEDS ORDERED: ceFAZolin 2 GM/D5W100ml 100 ML IV ONE (11:39)
[2024-05-13] MEDS ORDERED: PHENYLEPHRINE HCL 10 MG/ML VL ONE (12:24)
[2024-05-13] MEDS ORDERED: SODIUM CHLORIDE LOCK 10 ML ONE (12:24)
[2024-05-13] MEDS: BUPIVACAINE 0.5% MPF INJ 30ML SDV IJ ONE (12:30)
[2024-05-13] MEDS: VANCOMYCIN HCL 1000 MG VL ONE (12:31)
[2024-05-13 12:43] VITALS: O2SAT 95
[2024-05-13] MEDS ORDERED: LINE1TAB6 PO (15:30)
[2024-05-13 17:00] VITALS: BP 130/71; PULSE 95; RESP 16; TEMP 98.2; O2SAT 95
[2024-05-13 17:39] VITALS: BP 130/71; PULSE 85; RESP 16; TEMP 35.9; O2SAT 95
== END 2024-05-13 18:35 | disposition home or self-care (01) | DRG 602 ==
LOC: ER 14:43 → OVERFLOW 23:01 → WEST WING 05-10 03:13
PROVIDERS: ADMIT Nurse Practitioner; ATTEND Internal Medicine Geriatric Medicine
PROC: 0Y9M0ZZ Drainage of Right Foot, Open Approach (ICD-10-PCS; principal; 2024-05-11 13:34)
PROC: 0Y9M0ZZ Drainage of Right Foot, Open Approach (ICD-10-PCS; 2024-05-13)
DX: L03.115 Cellulitis of right lower limb (principal); A48.0 Gas gangrene; E11.52 Type 2 diabetes mellitus with diabetic peripheral angiopathy with gangrene; L02.611 Cutaneous abscess of right foot; E11.621 Type 2 diabetes mellitus with foot ulcer; L97.519 Non-pressure chronic ulcer of other part of right foot with unspecified severity; I10 Essential (primary) hypertension; E78.5 Hyperlipidemia, unspecified; E87.6 Hypokalemia; Z89.512 Acquired absence of left leg below knee; Z88.1 Allergy status to other antibiotic agents; Z83.3 Family history of diabetes mellitus; Z82.49 Family history of ischemic heart disease and other diseases of the circulatory system; Z90.49 Acquired absence of other specified parts of digestive tract; Z79.4 Long term (current) use of insulin
CPT/HCPCS: 36415; 71045; 73700; 73718; 80048; 80053; 81001; 82962; 83605; 83880; 84702; 85025; 85610; 85730; 87040; 87070; 87075; 87076; 87077; 87186; 87205; 96365; G0378; J1100; J1815; J1885; J2001; J2250; J2405; J2704; J3490

== ENCOUNTER → 2024-09-05 | Outpatient (CLI) | payer OTHER ==
[~2024-09-05] MED LIST changes: -CEPH500T PO; -CIPR500T4 PO; +ERGO1CAP23 PO; +LINE1TAB6 PO; +TIRZ10IN SC
[2024-09-05 11:47] LABS: Basophils # (auto) 0 10 ^3/uL (0-0.2); Basophils % (auto) 0.7 % (0.0-2.0); Eosinophils # (auto) 0.1 10 ^3/uL (0-0.8); Eosinophils % (auto) 1.1 % (0.0-7.0); Hematocrit 38.7 % (36.0-46.0); Hemoglobin 12.5 g/dL (12.2-16.2); Lymphocytes # (auto) 2.1 10 ^3/uL (0.4-5.4); Lymphocytes % (auto) 28.8 % (10.0-50.0); Mean Corpuscular Hemoglobin 28.6 pg (28.0-32.0); Mean Corpuscular Hgb Conc. 32.3 g/dL (32.0-36.0); Mean Corpuscular Volume 88.4 fL (80.0-100.0); Monocytes # (auto) 0.4 10 ^3/uL (0-1.3); Monocytes % (auto) 5.2 % (0.0-12.0); Neutrophils # (auto) 4.6 10 ^3/uL (1.6-8.6); Neutrophils % (auto) 64.2 % (37.0-80.0); Nucleated Red Blood Cells % 0.1 %; Platelet Count (auto) 277 10^3/uL (140-450); Red Blood Cells 4.38 10^6/uL (4.0-5.20); Red Cell Distribution Width 19.3 % (11.8-14.3); White Blood Cell 7.2 10^3/uL (4.4-10.8)
[2024-09-05 12:25] LABS: Creatinine, Urine 48.13 mg/dL (30.0-125.0); LDL Cholesterol 71 mg/dL (< 100)
[2024-09-05 12:27] LABS: Cholesterol 156 mg/dL (< 200); HDL Cholesterol 43 mg/dL (40-59)
[2024-09-05 12:31] LABS: Triglycerides 323 mg/dL (< 150)
== END | disposition home or self-care (01) ==
LOC: LAB 11:23
PROVIDERS: ATTEND Internal Medicine
DX: I10 Essential (primary) hypertension (principal); E11.9 Type 2 diabetes mellitus without complications; E78.5 Hyperlipidemia, unspecified
CPT/HCPCS: 36415; 80061; 82043; 82570; 82607; 84443; 85025

== ENCOUNTER → 2024-12-13 | Outpatient (CLI) | payer OTHER ==
[2024-12-13 11:10] LABS: Creatinine, Urine 39.74 mg/dL (30.0-125.0)
[2024-12-13 11:53] LABS: Alanine Aminotransferase 20 U/L (7-40); Alkaline Phosphatase 51 U/L (46-116); Anion Gap 11 (5-15); Aspartate Aminotransferase 15 U/L (13-40); BUN/Creatinine Ratio 23.8 (10.0-20.0); Carbon Dioxide 24 mmol/L (20-31); Chloride 102 mmol/L (98-107); HDL Cholesterol 55 mg/dL (40-59); Sodium 137 mmol/L (136-145)
[2024-12-13 11:54] LABS: Bilirubin, Total 0.4 mg/dL (0.2-1.0)
[2024-12-13 11:55] LABS: Albumin 5.1 g/dL (3.2-4.8); Blood Urea Nitrogen 24 mg/dL (9-23); Calcium 10.4 mg/dL (8.7-10.4); Cholesterol 206 mg/dL (< 200); Glucose 289 mg/dL (74-106); LDL Cholesterol 105 mg/dL (< 100); Triglycerides 276 mg/dL (< 150)
== END | disposition home or self-care (01) ==
LOC: LAB 10:26
PROVIDERS: ATTEND Internal Medicine
DX: E11.9 Type 2 diabetes mellitus without complications (principal)
CPT/HCPCS: 36415; 80053; 80061; 82043; 82570; 83036

== ENCOUNTER → 2025-04-14 | Outpatient (CLI) | payer OTHER ==
[2025-04-14 13:24] LABS: Cholesterol 181 mg/dL (< 200); HDL Cholesterol 53 mg/dL (40-59)
[2025-04-14 13:25] LABS: Triglycerides 227 mg/dL (< 150)
== END | disposition home or self-care (01) ==
LOC: LAB 12:23
PROVIDERS: ATTEND Internal Medicine
DX: E11.9 Type 2 diabetes mellitus without complications (principal)
CPT/HCPCS: 36415; 80061; 83036

== ENCOUNTER 2025-07-14 10:41 | Outpatient (CLI) | payer OTHER ==
[2025-07-14 12:03] LABS: Anion Gap 13 (5-15); Calcium 10.2 mg/dL (8.7-10.4); Carbon Dioxide 25 mmol/L (20-31); Chloride 104 mmol/L (98-107); Potassium 4.3 mmol/L (3.5-5.1); Sodium 142 mmol/L (136-145)
[2025-07-14 12:09] LABS: BUN/Creatinine Ratio 15.5 (10.0-20.0); Blood Urea Nitrogen 17 mg/dL (9-23)
[2025-07-14 12:10] LABS: Glucose 186 mg/dL (74-106); Triglycerides 226 mg/dL (< 150)
[2025-07-14 12:11] LABS: Cholesterol 174 mg/dL (< 200)
[2025-07-14 12:12] LABS: HDL Cholesterol 60 mg/dL (40-59)
[2025-07-14 13:57] LABS: Microalb/Creat Ratio, Urine 6.00
== END 2025-07-14 17:00 | disposition home or self-care (01) ==
LOC: LAB 10:41
PROVIDERS: ATTEND Internal Medicine
DX: E11.9 Type 2 diabetes mellitus without complications (principal); E78.5 Hyperlipidemia, unspecified
CPT/HCPCS: 36415; 80048; 80061; 82043; 82570; 83036

== ENCOUNTER 2025-07-14 16:13 | Outpatient (CLI) | payer OTHER | END 2025-07-14 17:00 | disposition home or self-care (01) | LOC: LAB 16:13 | PROVIDERS: ATTEND Internal Medicine | DX: E11.9 Type 2 diabetes mellitus without complications (principal) | CPT/HCPCS: 82270 ==